=== PATIENT | female | born 1955 | race Caucasian/White ===

== ENCOUNTER 2020-05-21 13:07 | Outpatient (REF) | payer OTHER, SELFPAY ==
[2020-05-21 15:55] LABS: Free T4 (Free Thyroxine) 1.54 ng/dL (0.71-1.85); Thyroid Stimulating Hormone 0.02 uIU/mL (0.32-4.0)
[2020-05-21 16:14] LABS: Folate 10.7 ng/mL (> or = 4.0); Vitamin B12 < 146 pg/mL (200-900)
== END 2020-05-21 13:08 | disposition home or self-care (01) ==
LOC: HO.LAB 13:07
PROVIDERS: PCP Internal Medicine; Visit Provider Internal Medicine
DX: E03.9 Hypothyroidism, unspecified (principal); E53.8 Deficiency of other specified B group vitamins; E78.00 Pure hypercholesterolemia, unspecified
CPT/HCPCS: 82607; 82746; 84439; 84443

== ENCOUNTER 2020-06-05 12:38 | Outpatient (REF) | payer OTHER, SELFPAY | END 2020-06-05 12:39 | disposition home or self-care (01) | LOC: HO.LAB 12:38 | PROVIDERS: PCP Internal Medicine; Visit Provider Internal Medicine | DX: Z20.828 Contact with and (suspected) exposure to other viral communicable diseases (principal) | CPT/HCPCS: 36415; C9803; U0003 ==

== ENCOUNTER 2020-09-04 08:51 | Outpatient (REF) | payer OTHER, SELFPAY | END 2020-09-04 08:52 | disposition home or self-care (01) | LOC: HO.LAB 08:51 | PROVIDERS: Visit Provider Internal Medicine | DX: Z20.822 Contact with and (suspected) exposure to COVID-19 (principal) | CPT/HCPCS: C9803; U0003; U0005 ==

== ENCOUNTER 2020-09-06 09:02 | Emergency (ER) | payer OTHER, SELFPAY ==
--- NOTE | ~2020-09-06 | XR_ITS ---
EXAMINATION: XR CHEST CLINICAL INFORMATION: Productive cough. Fever. COMPARISON: Chest done on 12/31/2019. TECHNIQUE: Frontal view of the chest was obtained. FINDINGS: Mild prominent bronchovascular markings are present, appear similar to prior study. No significant abnormality is noted involving the heart, mediastinum, bony thorax or soft tissues. XR/XR chest 1V IMPRESSION: No radiographic evidence of pneumonia or acute cardiopulmonary disease, unchanged since 12/31/2019.
[2020-09-06 09:06] VITALS: BP 185/102; PULSE 80; RESP 20; TEMP 36.9; O2SAT 97; BMI 32.9
[2020-09-06] MEDS: 0.9 % Sodium Chloride 1,000 ML 999 ML IVCONT (09:45)
[2020-09-06 09:46] LABS: MANUAL DIFF FLAG NO
--- NOTE | 2020-09-06 09:48 | ED.GENADULT ---
HPI - General Adult General Chief complaint: General Medical Stated complaint: covid symptoms Time Seen by Provider: 09/06/20 09:08 Source: patient Mode of arrival: ambulatory Limitations: no limitations History of Present Illness HPI narrative: 64 y/o female wiht history of HTN, HLD, hypothyroidism, asthma, seasonal allergies who presents with 4 days of headache, fevers, productive junky cough and body aches. 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 She had a COVID test on 09/04 that returned positive today. She did not know the results when she came to the ER. She reports decreased PO intake and decreased urination. She is worried about her hydration status. She reports fevers and headache coinside and when her fever breaks her headaches resolve. She has chest tightness when she coughs that does not radiate. She denies difficulty breathing. MD complaint: COVID symptoms Onset (ago): day(s) (4) Location: head, chest and back Radiation: non-radiation Severity: moderate Severity scale (1-10): 8 Quality: aching Pain Consistency: intermittent Relieving factors: medication Exacerbating factors: movement Associated symptoms: cough, fever/chills, headaches, loss of appetite, malaise and weakness Treatments prior to arrival: none Related Data Home Medications Medication Instructions Recorded Confirmed albuterol sulfate 90 mcg/actuation 2 puff INHALATION Q4-6H PRN 03/10/20 03/10/20 aerosol inhaler latanoprost 0.005 % eye drops 1 drp OPHTHALMIC (EYE) DAILY 03/10/20 03/10/20 triamcinolone acetonide 0.5 % 1 applic TOPICAL BID 03/10/20 topical cream Previous Rx's Medication Instructions Recorded fluticasone propionate 110 2 puff INHALATION BID #12 g 03/10/20 mcg/actuation HFA aerosol inhaler loratadine 10 mg capsule 10 mg PO DAILY #90 cap 03/10/20 lorazepam 0.5 mg tablet 0.5 mg PO DAILY PRN #90 tab 03/10/20 temazepam 15 mg capsule 15 mg PO BEDTIME #30 cap 03/10/20 cyanocobalamin (vitamin B-12) 1,000 mcg PO DAILY #90 cap 05/21/20 1,000 mcg capsule levothyroxine 100 mcg tablet 100 mcg PO DAILY #30 tab 12/23/20 naproxen 500 mg tablet 500 mg PO BID PRN #60 tab 07/31/20 lisinopril 10 mg tablet 10 mg PO DAILY #90 tab 08/12/20 albuterol sulfate 1 inh INHALATION QID PRN #6.7 g 09/06/20 azithromycin [Zithromax Z-Vladimir] See Rx Instructions .ROUTE 09/06/20 .COMPLEX #6 tab benzonatate [Tessalon Perles] 100 mg PO TID PRN #20 cap 09/06/20 prednisone 40 mg PO DAILY #10 tab 09/06/20 Allergies Allergy/AdvReac Type Severity Reaction Status Date / Time latex [LATEX] Allergy Unknown ANAPHYLAXIS Verified 03/10/20 15:58 fruits Allergy Unknown itchy Uncoded 03/10/20 15:58 throat Review of Systems Review of Systems: Constitutional: + Fever, + Chills ENT/Mouth: No sore throat, No Rhinorrhea, No Swallowing Difficulty Eyes: No Eye Pain, No Swelling, No Redness Cardiovascular: + Chest Pain (w/cough), No SOB, No Orthopnea, No Edema Respiratory: + Cough, + Sputum, No Wheezing, No dyspnea Gastrointestinal: + Nausea, No Vomiting, No Diarrhea, No abdominal Pain Genitourinary: No Dysuria, No Urinary Frequency, No Hematuria Musculoskeletal: No joint pain, + Myalgias Skin: No Skin Lesions, No rash Neuro: + Weakness, No Numbness, +Dizziness, +Headache Psych: No Anxiety/Panic, No Depression Heme/Lymph: No Bruising, No Lymphadenopathy Endocrine: No Polyuria, No Polydipsia PMFSH Past Medical History Attestation statement: The following information was validated with the patient. Medical History Allergic rhinitis Anxiety Asthma Hypercholesterolemia Hypertension Hypothyroid Obesity (BMI 30.0-34.9) Surgical History (Updated 03/07/20 @ 13:24 by MENA Boswell) Cornea replaced by transplant History of section History of trigger finger Status post corneal transplant Family History Family History (Updated 03/07/20 @ 13:26 by MENA Boswell) Father Aneurysm CVA (cerebral vascular accident) Mother Hypertension Paternal Grandfather Brain aneurysm Social History Social History (Updated 03/10/20 @ 16:00 by Felipe Perry MD) Alcohol intake: never Smoking Status: Never smoker Advance Directives: No Advance Directives Information Provided: No Physical Exam Vital Signs: Vital Signs: Last Vital Signs Temp 98.2 F 09/06/20 11:31 Pulse 63 09/06/20 11:31 Resp 18 09/06/20 11:31 BP 193/91 H 09/06/20 11:31 Pulse Ox 98 09/06/20 11:31 Body Mass Index 32.9 Appearance: Alert. Oriented X3. No acute distress. Eyes: Pupils equal, round and reactive to light. ENT: Pharynx normal. Neck: Normal inspection. Neck supple. CVS: Normal heart rate and rhythm. Pulses normal. Respiratory: No respiratory distress. Breath sounds with right sided slight end expiratory wheeze, no rhonchi or rales Abdomen: Soft and nontender. +BS x4 Skin: Skin warm and dry. Normal skin color. Normal skin turgor. No rashes. Extremities: No lower extremity edema. Negative Jeannette's sign Neuro: Oriented X 3. Ambualtes with steady gait. Course Course Course Narrative: 64 y/o female with history of asthma and HTN presenting with COVID symptoms, found to be COVID positive on outpatient testing after known exposure to a coworker. She is vitally stable, aside from hypertension. She did not take her antihypertensives yet this morning. She has no vision changes or chest pain. She has a headache that she attributes to COVID. Doubt hypertensive urgency. She is in no respiratory distress with SpO2 98%. She was ambulated with pulse oximetry and SpO2 remained 96-98%. Will get CXR to assess for superimposed pneumonia - she reports productive cough of yellow phlegm. Will get basic lab workup as well given patient's reports and concerns for dehydration. Reevaluation(s) Reevaluation #1: CXR negative. Labs reassuring. BP remained elevated so lisinopril was given with good effect. She has plans to follow up with her PCP for BP management. She is stable for discharge with treatment for bronchitis. Patient agreeable with plan. Medical Decision Making Lab Data Result diagrams: 09/06/20 09:43 09/06/20 09:43 Labs: Lab Results 09/06/20 09/06/20 09/06/20 Range/Units 09:43 09:43 11:33 WBC 4.9 (4.8-10.8) X10*3/uL RBC 5.20 (4.20-5.50) X10*6/uL Hgb 15.8 (12.0-16.0) g/dl Hct 46.1 (37-47) % MCV 88.7 (80-98) fL MCH 30.4 (27.0-33.0) pg MCHC 34.3 (31.0-35.0) g/dl RDW 11.9 (11.0-16.0) % Plt Count 223 (160-400) X10*3/uL MPV 9.2 L (9.4-12.3) fL Immature Gran % (Auto) 0.2 (0.0-0.4) % Neut % (Auto) 46.2 (45-73) % Lymph % (Auto) 36.7 (20-40) % [place] % (Auto) 15.9 H (2-11) % Eos % (Auto) 0.6 (0-4) % Baso % (Auto) 0.4 (0-2) % Lymph # (Auto) 1.8 (1.2-4.9) X10*3/uL [place] # (Auto) 0.8 (0.1-1.2) X10*3/uL Eos # (Auto) 0.0 (0.0-0.4) X10*3/uL Baso # (Auto) 0.0 (0.0-0.2) X10*3/uL Abs Immat Gran (auto) 0.01 (0.00-0.03) X10*3/uL Absolute Neuts (auto) 2.3 (2.0-8.3) X10*3/uL Absolute Nucleated RBC 0.000 (0.0-0.012) X10*3/uL Nucleated RBC % (auto) 0.0 (0.0-0.2) /100WBC Sodium 135 (135-145) mmol/L Potassium 4.7 (3.3-5.1) mmol/L Chloride 104 (96-108) mmol/L Carbon Dioxide 20 L (22-29) mmol/L Anion Gap 16 (12-20) BUN 14 (9-16) mg/dL Creatinine 0.73 (0.5-1.4) mg/dL Estim Creat Clear Calc 79.1 Estimated GFR > 60 Random Glucose 109 (60-115) mg/dL Calcium 8.4 (8.4-10.2) mg/dL Urine Color YELLOW Urine Appearance CLEAR Urine pH 6.0 (5.0-8.0) Ur Specific [place] 1.025 (1.005-1.025) Urine Protein NEG (NEG-TRACE) MG/DL Urine Glucose (UA) NEG (NEG) MG/DL Urine Ketones NEG (NEG) MG/DL Urine Blood NEG (NEG) Urine Nitrite NEG (NEG) Ur Leukocyte Esterase NEG (NEG) Critical Care Time Critical Care Time Critical Care Time: No Discharge Plan Discharge Clinical Impression: COVID-19, Bronchitis Patient Disposition: Home, Self-Care Instructions: Acute Bronchitis (ED), COVID-19 (Coronavirus Disease 2019) (ED) Additional Instructions: You were found to be COVID-19 POSITIVE today. Your chest x-ray and oxygen levels were normal. Your lab work was normal. Rest. Drink plenty of fluids. Do not go out in public for the next 10 days. Take over the counter cold/flu medications as needed for your symptoms. Take Tylenol and/or Motrin as needed for fevers and body aches. Follow up with your doctor this week. If you shortness of breath worsens , if you develop difficulty breathing or any other concerning symptom come back to the ER for further evaluation. Your blood pressure was elevated in the ER today - recommend following up with your doctor next week for follow up. Stick to a low salt diet. Prescriptions: New azithromycin [Zithromax Z-Vladimir] 250 mg tablet See Rx Instructions .ROUTE .COMPLEX Qty: 6 RF: 0 prednisone 20 mg tablet 40 mg PO DAILY Qty: 10 RF: 0 albuterol sulfate 90 mcg/actuation HFA aerosol inhaler 1 inh inhalation QID PRN (Reason: shortness of breath or wheezing) Qty: 6.7 RF: 0 benzonatate [Tessalon Perles] 100 mg capsule 100 mg PO TID PRN (Reason: cough) Qty: 20 RF: 0 No Action levothyroxine 100 mcg tablet 100 mcg PO DAILY Qty: 30 RF: 3 cyanocobalamin (vitamin B-12) 1,000 mcg capsule 1,000 mcg PO DAILY Qty: 90 RF: 2 naproxen 500 mg tablet 500 mg PO BID PRN (Reason: pain) Qty: 60 RF: 0 lisinopril 10 mg tablet 10 mg PO DAILY Qty: 90 RF: 1 albuterol sulfate [ProAir HFA] 90 mcg/actuation HFA aerosol inhaler 2 puff inhalation Q4-6H PRNRF: 0 triamcinolone acetonide 0.5 % cream 1 applic topical BID RF: 0 latanoprost 0.005 % drops 1 drp ophthalmic (eye) DAILY RF: 0 fluticasone propionate 110 mcg/actuation HFA aerosol inhaler 2 puff inhalation BID Qty: 12 RF: 7 lorazepam 0.5 mg tablet 0.5 mg PO DAILY PRN (Reason: anxiety) Qty: 90 RF: 0 temazepam 15 mg capsule 15 mg PO BEDTIME Qty: 30 RF: 0 loratadine 10 mg capsule 10 mg PO DAILY Qty: 90 RF: 0 Referrals: Po,Felipe Negrete MD [Primary Care Provider] - 2 days (high blood pressure ) Stand Alone Forms: Work/School Release
[2020-09-06 09:50] LABS: Basophils Percent Auto 0.4 % (0-2); Eosinophils Percent Auto 0.6 % (0-4); Hematocrit 46.1 % (37-47); Hemoglobin 15.8 g/dl (12.0-16.0); Imm Gran Abs Auto 0.01 X10*3/uL (0.00-0.03); Imm Gran Pct Auto 0.2 % (0.0-0.4); Lymphocytes Absolute Auto 1.8 X10*3/uL (1.2-4.9); Lymphocytes Percent Auto 36.7 % (20-40); Mean Corpuscular HGB Conc 34.3 g/dl (31.0-35.0); Mean Corpuscular Hemoglobin 30.4 pg (27.0-33.0); Mean Corpuscular Volume 88.7 fL (80-98); Mean Platelet Volume 9.2 fL (9.4-12.3); Monocytes Absolute Auto 0.8 X10*3/uL (0.1-1.2); Monocytes Percent Auto 15.9 % (2-11); Neutrophils Absolute Auto 2.3 X10*3/uL (2.0-8.3); Neutrophils Percent Auto 46.2 % (45-73); Platelet Count 223 X10*3/uL (160-400); Red Cell Distribution Width 11.9 % (11.0-16.0); White Blood Count 4.9 X10*3/uL (4.8-10.8)
[2020-09-06 10:10] LABS: Anion Gap 16 (12-20); Blood Urea Nitrogen 14 mg/dL (9-16); Calcium 8.4 mg/dL (8.4-10.2); Carbon Dioxide 20 mmol/L (22-29); Chloride 104 mmol/L (96-108); Creatinine Clr Calc Pharmacy 79.1; Estimated Glomerular Filt Rate > 60; Glucose Random 109 mg/dL (60-115); Potassium 4.7 mmol/L (3.3-5.1); Sodium 135 mmol/L (135-145)
[2020-09-06 10:29] VITALS: PULSE 69; RESP 18; O2SAT 98
[2020-09-06 10:35] VITALS: BP 191/83
[2020-09-06] MEDS: lisinopriL 10 MG TABLET PO (10:40)
[2020-09-06 11:31] VITALS: BP 193/91; PULSE 63; RESP 18; TEMP 36.8; O2SAT 98
--- NOTE | 2020-09-06 11:32 | PC.NURSE ---
patient a&ox3, vss, patients fluids now complete, will continue to monitor
[2020-09-06 11:44] LABS: Glucose Urine UA NEG (NEG); Leukocyte Esterase Urine NEG (NEG); Nitrite Urine NEG (NEG); Specific Gravity - Urine 1.025 (1.005-1.025); Urine Blood NEG (NEG); Urine Ketones NEG (NEG); Urine Protein NEG (NEG-TRACE)
[2020-09-06 11:45] LABS: Appearance Urine CLEAR; Color Urine YELLOW
[2020-09-06 12:34] VITALS: BP 177/88
== END 2020-09-06 12:36 | disposition home or self-care (01) ==
PROVIDERS: Physician Assistant; Emergency Provider Emergency Medicine Emergency Medical Services; PCP Internal Medicine
DX: U07.1 COVID-19 (principal); J20.8 Acute bronchitis due to other specified organisms; I10 Essential (primary) hypertension; E78.5 Hyperlipidemia, unspecified; J45.909 Unspecified asthma, uncomplicated; Z79.899 Other long term (current) drug therapy
CPT/HCPCS: 36415; 71045; 80048; 81003; 85025; 96360; 99284

== ENCOUNTER 2020-10-28 15:49 | Outpatient (REF) | payer OTHER, SELFPAY ==
--- NOTE | ~2020-10-28 | MM_ITS ---
EXAMINATION: MM SCREENING DIGITAL BREAST TOMOSYNTHESIS, BILATERAL CLINICAL INFORMATION: Screening. Asymptomatic. The lifetime risk of breast cancer based on the Tyrer-Cuzick Model is 6%. COMPARISON: Mammography: 07/19/2019, 06/02/2018, 03/09/2016 TECHNIQUE: Digital breast tomosynthesis is performed in both the craniocaudal and mediolateral oblique views along with computer-aided detection (CAD). Synthesized 2D images are generated from the tomosynthesis. FINDINGS: There are scattered areas of fibroglandular density (ACR BI-RADS breast composition Category b). There are no significant masses, abnormal calcifications, or other abnormalities. Parenchymal pattern is similar to prior exams. No developing density. No significant changes. MM/MM tomosynthesis screening BI IMPRESSION: No mammographic evidence of malignancy. ASSESSMENT: BI-RADS 1: Negative RECOMMENDATION: Routine annual mammography screening. This patient's information was entered into a reminder system with a target due date for their next mammogram.
== END 2020-10-28 15:50 | disposition home or self-care (01) ==
LOC: HO.MAMMO 15:49
PROVIDERS: Visit Provider Internal Medicine
DX: Z12.31 Encounter for screening mammogram for malignant neoplasm of breast (principal)
CPT/HCPCS: 77063; 77067

== ENCOUNTER 2021-03-11 15:00 | Outpatient (REF) | payer OTHER, SELFPAY | END 2021-03-11 15:01 | disposition home or self-care (01) | LOC: HO.LAB 15:00 | PROVIDERS: Visit Provider Internal Medicine | DX: Z20.822 Contact with and (suspected) exposure to COVID-19 (principal) | CPT/HCPCS: C9803; U0003; U0005 ==

== ENCOUNTER 2021-04-03 13:52 | Emergency (ER) | payer OTHER, SELFPAY ==
--- NOTE | ~2021-04-03 | XR_ITS ---
EXAMINATION: XR CHEST CLINICAL INFORMATION: Chills, wheeze, cough COMPARISON: 09/06/2020 TECHNIQUE: Frontal view of the chest was obtained. FINDINGS: The lungs are well expanded. There is no focal consolidation, edema, or effusion. No pneumothorax. The cardiomediastinal silhouette is within normal limits of size with a calcified aorta. No acute osseous abnormality. XR/XR chest 1V IMPRESSION: No acute pulmonary finding.
[2021-04-03 14:06] VITALS: BP 171/79; PULSE 78; RESP 18; TEMP 36.7; O2SAT 94; BMI 29.2
[2021-04-03] MEDS: predniSONE 20 MG TABLET 60 MG PO (14:31)
[2021-04-03 14:37] LABS: COVID-19 Test Negative (Negative); IDNOW Serial# 9DD0AD1C
[2021-04-03] MEDS: Albuterol Sulfate (0.083%) 2.5 MG/3 ML VIAL.NEB 10 MG INHALE (15:01)
[2021-04-03 15:05] VITALS: PULSE 76; O2SAT 95
--- NOTE | 2021-04-03 15:34 | ED.URI ---
HPI - URI/Sore Throat General Chief Complaint: Upper Respiratory Symptoms Stated Complaint: cough, diff breathing, chest tightness Time Seen by Provider: 04/03/21 14:17 Source: patient Mode of arrival: ambulatory Limitations: no limitations History of Present Illness HPI Narrative: 65-year-old female with a past medical history of hypertension, hyperlipidemia, hypothyroidism, asthma and seasonal allergies presenting to the ED with complaints of few days of chills, subjective fevers, intermittent headaches, nasal congestion/rhinorrhea, sore throat, dry cough with associated increased shortness of breath/wheezing despite using her albuterol inhaler and her 's prescribed nebulizers. She denies recent travel. She is fully vaccinated with 2 COVID vaccines. She is unsure if she had any possible COVID exposure at work. She denies any dizziness, neck pain/stiffness, change in vision, chest pain, dyspnea exertion, orthopnea, palpitations, nausea/vomiting/diarrhea or constipation, abdominal pain, dysuria, rashes, lower extremity edema or calf tenderness or any other symptoms complaints or concerns at this time. MD elicited complaint: fever, cough, sore throat, rhinorrhea and nasal congestion Pertinent past history: asthma Onset (ago): day(s) (Few days worse today) Consistency: constant and progressively worsening Severity: moderate Able to tolerate fluids by mouth: Yes Exacerbating factors: speaking and deep breaths Relieving factors: nothing Context: sick contacts Associated symptoms: fever, chills, myalgias, headache, rhinorrhea, nasal congestion, sore throat, cough and shortness of breath Treatments prior to arrival: other (See above) Related Data Home Medications Medication Instructions Recorded Confirmed latanoprost 0.005 % eye drops 1 drp OPHTHALMIC (EYE) DAILY 03/10/20 02/09/21 Previous Rx's Medication Instructions Recorded fluticasone propionate 110 2 puff INHALATION BID #12 g 03/10/20 mcg/actuation HFA aerosol inhaler cyanocobalamin (vitamin B-12) 1,000 mcg PO DAILY #90 cap 05/21/20 1,000 mcg capsule lisinopril 10 mg tablet 20 mg PO DAILY #60 tab 09/10/20 loratadine 10 mg capsule 10 mg PO DAILY #90 cap 01/12/21 albuterol sulfate 90 mcg/actuation 2 puff INHALATION Q4-6H PRN #8.5 g 02/09/21 aerosol inhaler (ProAir HFA) epinephrine 0.3 mg/0.3 mL 0.3 mg (0.3 mL) IM Q10M PRN #2 ea 02/09/21 injection, auto-injector inhalational spacing device #1 ea 02/09/21 (BreatheRite Valved MDI Spacer) lorazepam 0.5 mg tablet 0.5 mg PO DAILY PRN 90 Days #90 tab 02/09/21 prednisone 20 mg tablet 40 mg PO DAILY 5 Days #10 tab 02/09/21 azithromycin 250 mg tablet See Rx Instructions PO .COMPLEX 5 03/13/21 (Zithromax Z-Vladimir) Days #6 tab prednisone 10 mg tablet See Rx Instructions PO DAILY 10 03/13/21 Days #28 tab levothyroxine 100 mcg tablet 100 mcg PO DAILY 90 Days #90 tab 03/31/21 albuterol sulfate 0.63 mg/3 mL 0.63 mg (3 mL) INHALATION QID PRN 04/03/21 solution for nebulization #75 ml albuterol sulfate 90 mcg/actuation 1 inh INHALATION QID PRN #8.5 g 04/03/21 aerosol inhaler codeine 10 mg-guaifenesin 100 mg/5 5 ml PO Q6H PRN #120 ml 04/03/21 mL oral liquid (Guaifenesin AC) doxycycline hyclate 100 mg tablet 100 mg PO BID 10 Days #20 tab 04/03/21 nebulizers (AeroEclipse II #1 ea 04/03/21 Nebulizer) prednisone 20 mg tablet 40 mg PO DAILY 5 Days #10 tab 04/03/21 Allergies Allergy/AdvReac Type Severity Reaction Status Date / Time latex [LATEX] Allergy Unknown ANAPHYLAXIS Verified 03/13/21 13:50 fruits Allergy Unknown itchy Uncoded 02/09/21 09:44 throat Review of Systems Review of Systems: Constitutional : Positive fever/chills/fatigue/malaise, No Weight loss, No Night Sweats ENT/Mouth : Positive nasal congestion/rhinorrhea/sore throat, No Hearing loss, No Ear Pain, No Sinus Pain, No Hoarseness, No Swallowing Difficulty Eyes: No Eye Pain, No Swelling, No Redness, No Foreign Body, No Discharge, No Vision Changes Cardiovascular : Positive shortness of breath, No Chest Pain, No Dyspnea on Exertion, No Orthopnea, No Edema, No Palpitations Respiratory : Positive cough with wheezing and dyspnea, No Sputum production Gastrointestinal : No Nausea, No Vomiting, No Diarrhea, No Constipation, No abdominal Pain, No Hematochezia, No Melena Genitourinary : no irregular bleeding, No Dysuria, No Urinary Frequency, No Hematuria, No Urinary Incontinence, No Urgency, No Flank Pain, No Urinary Flow Changes, No Hesitancy Musculoskeletal : Positive myalgias, No joint pain, No Joint Swelling Skin : No Skin Lesions, No rash Neuro : No Weakness, No Numbness, No Paresthesias, No Loss of Consciousness, No Dizziness, No Headache Psych : No Anxiety/Panic, No Depression, No SI/HI/AH/VH, No Social Issues, Heme/Lymph: No Bruising, No Bleeding,No Lymphadenopathy Endocrine : No Polyuria, No Polydipsia, No Temperature Intolerance Yes all other systems are reviewed and are negative [facility] Past Medical History Attestation statement: The following information was validated with the patient. Medical History Allergic rhinitis Anxiety Asthma COVID-19 Hypercholesterolemia Hypertension Hypothyroid Obesity (BMI 30.0-34.9) Surgical History Cornea replaced by transplant History of section History of trigger finger Status post corneal transplant Family History Family History Father Aneurysm CVA (cerebral vascular accident) Mother Hypertension Paternal Grandfather Brain aneurysm Social History Social History Housing: House Alcohol intake: never Patient Tobacco Use Status: Never used Tobacco e-Cigarette/Vaping Use: Never Used Second Hand Smoke Exposure: No Advance Directives: No Advance Directives Information Provided: No Patient : No service: Yes Current occupational status: employed Physical Exam Vital Signs: Vital Signs: Last Vital Signs Temp 98.1 F 04/03/21 14:06 Pulse 76 04/03/21 15:05 Resp 18 04/03/21 14:06 BP 171/79 H 04/03/21 14:06 Pulse Ox 94 04/03/21 14:06 Body Mass Index 29.2 vital signs have been reviewed as normal and appeared to be correct. Blood pressure hypertensive 171/79. Heart rate normal. Respiration rate normal. Temperature normal. Oxygen saturation 94% normal. Appearance: Alert. Oriented X3. Mild respiratory distress. No other acute distress. Head: Normal external exam. Normocephalic. Atraumatic. Eyes: PERRLA. EOMI. Conjunctiva and sclera normal. Eyelids normal. ENT: Pharynx normal. Uvula midline. Moist mucous membranes. No trismus noted. No drooling noted. No muffled voice noted. Tolerating secretions well. Neck: Normal inspection. Neck supple. FROM. No adenopathy. Thyroid Normal. No meningeal signs. No neck mass noted. CVS: Normal heart rate and rhythm. Heart sound normal. Pulses normal throughout. No murmurs/rales/gallops. Respiratory: Mild acute respiratory distress with decreased breath sounds and pain with inspiration with inspiratory and expiratory wheezing throughout. Some accessory muscle usage noted. No tracheal tugging is noted. Chest is nontender. Abdomen: Soft and nontender. Bowel sounds normal in all 4 quadrants. No distention noted. No organomegaly noted. No visible injury noted. Back: Full range of motion noted. No rashes/lesion/induration/fluctuance or signs of infection noted. Skin: Skin warm and dry. Normal skin color. Normal skin turgor. No rashes/lesions/lacerations noted. Extremities: No lower extremity edema. No calf tenderness is noted. Extremities exhibit normal range of motion. Extremities nontender. Neuro: Oriented X 3. No motor deficit. No sensory deficit. Reflexes normal. Normal steady gait. No focal neuro deficits noted. Vascular: + radial pulses/+ 2 distal pedal pulses/+2 dorsalis pedis b/l. Normal cap refill. No cyanosis noted to upper extremity nails and lower extremity toes nails. Course Course Course Narrative: 65-year-old female with a past medical history of hypertension, hyperlipidemia, hypothyroidism, asthma and seasonal allergies presenting to the ED with complaints of few days of chills, subjective fevers, intermittent headaches, nasal congestion/rhinorrhea, sore throat, dry cough with associated increased shortness of breath/wheezing despite using her albuterol inhaler and her 's prescribed nebulizers. She denies recent travel. She is fully vaccinated with 2 COVID vaccines. She is unsure if she had any possible COVID exposure at work. She denies any dizziness, neck pain/stiffness, change in vision, chest pain, dyspnea exertion, orthopnea, palpitations, nausea/vomiting/diarrhea or constipation, abdominal pain, dysuria, rashes, lower extremity edema or calf tenderness or any other symptoms complaints or concerns at this time. COVID swab negative. Chest x-ray negative. Patient received an hour long breathing treatment 60 mg of prednisone and she feels much better and exam has improved. Therefore at this time will DC home with antibiotics for bronchitis along with steroids and symptomatic treatment instructions return if any new or worsening symptoms to follow up with primary care provider. Patient understands agrees with this plan. MDM - URI/Sore Throat Medical Records Attestation: I reviewed the patient's medical records. Lab Data Labs: Lab Results 04/03/21 Range/Units 14:15 COVID-19 ([facility]INNA) Negative (Negative) COVID-19 Clin Com See Note Imaging Data Chest x-ray: Attestation: I personally reviewed and interpreted this imaging study as follows: Radiologist's impression: FINDINGS: The lungs are well expanded. There is no focal consolidation, edema, or effusion. No pneumothorax. The cardiomediastinal silhouette is within normal limits of size with a calcified aorta. No acute osseous abnormality. XR/XR chest 1V IMPRESSION: No acute pulmonary finding. Critical Care Time Critical Care Time Critical Care Time: Yes Total Critical Care Time: 60 Attestation: I personally attest to this time spent taking care of the patient Discharge Plan Discharge Clinical Impression: Asthma exacerbation, Acute bronchitis with bronchospasm, Wheezing Patient Disposition: Home, Self-Care Instructions: Asthma (ED), Acute Bronchitis (ED), Wheezing (ED) Prescriptions: New (DME) AeroEclipse II Nebulizer Misc See Rx Instructions .ROUTE .MEDSUPPLY Qty: 1 RF: 0 albuterol sulfate 0.63 mg/3 mL solution for nebulization 0.63 mg inhalation QID PRN (Reason: shortness of breath or wheezing) Qty: 75 RF: 0 albuterol sulfate 90 mcg/actuation HFA aerosol inhaler 1 inh inhalation QID PRN (Reason: shortness of breath or wheezing) Qty: 8.5 RF: 0 codeine-guaifenesin [Guaifenesin AC] 10-100 mg/5 mL liquid 5 ml PO Q6H PRN (Reason: cold symptoms) Qty: 120 RF: 0 doxycycline hyclate 100 mg tablet 100 mg PO BID 10 Days Qty: 20 RF: 0 prednisone 20 mg tablet 40 mg PO DAILY 5 Days Qty: 10 RF: 0 No Action cyanocobalamin (vitamin B-12) 1,000 mcg capsule 1,000 mcg PO DAILY Qty: 90 RF: 2 lisinopril 10 mg tablet 20 mg PO DAILY Qty: 60 RF: 1 loratadine 10 mg capsule 10 mg PO DAILY Qty: 90 RF: 3 lorazepam 0.5 mg tablet 0.5 mg PO DAILY PRN (Reason: anxiety) 90 Days Qty: 90 RF: 1 levothyroxine 100 mcg tablet 100 mcg PO DAILY 90 Days Qty: 90 RF: 2 latanoprost 0.005 % drops 1 drp ophthalmic (eye) DAILY RF: 0 fluticasone propionate 110 mcg/actuation HFA aerosol inhaler 2 puff inhalation BID Qty: 12 RF: 7 prednisone 20 mg tablet 40 mg PO DAILY 5 Days Qty: 10 RF: 0 epinephrine 0.3 mg/0.3 mL auto-injector 0.3 mg IM Q10M PRN (Reason: anaphylaxis) Qty: 2 RF: 1 (DME) BreatheRite Valved MDI Spacer Spacer See Rx Instructions .Route Qty: 1 RF: 0 albuterol sulfate [ProAir HFA] 90 mcg/actuation HFA aerosol inhaler 2 puff inhalation Q4-6H PRN (Reason: shortness of breath or wheezing) Qty: 8.5 RF: 0 prednisone 10 mg tablet See Rx Instructions PO DAILY 10 Days Qty: 28 RF: 0 azithromycin [Zithromax Z-Vladimir] 250 mg tablet See Rx Instructions PO .COMPLEX 5 Days Qty: 6 RF: 0 Referrals: Po,Felipe Negrete MD [Primary Care Provider] - 2 days Stand Alone Forms: Work/School Release Print Language: Iraqi
[2021-04-03 15:56] VITALS: PULSE 89; RESP 18; O2SAT 95
== END 2021-04-03 16:13 | disposition home or self-care (01) ==
PROVIDERS: Emergency Provider Emergency Medicine; PCP Internal Medicine
DX: J20.9 Acute bronchitis, unspecified (principal); J45.901 Unspecified asthma with (acute) exacerbation; R06.02 Shortness of breath; J02.9 Acute pharyngitis, unspecified; I10 Essential (primary) hypertension; E78.5 Hyperlipidemia, unspecified; Z20.822 Contact with and (suspected) exposure to COVID-19
CPT/HCPCS: 36415; 71045; 87635; 94640; 94644; 99284; 99291

== ENCOUNTER 2021-05-05 15:01 | Emergency (ER) | payer OTHER, SELFPAY ==
--- NOTE | ~2021-05-05 | CT_ITS ---
CT head/brain wo con CLINICAL INFORMATION: Reason for Exam fall. brain bleed? COMPARISON: No prior CT scan available for comparison. TECHNIQUE: Department standard protocol. This CT examination was performed using dose optimization techniques as appropriate, variously including the following: *Automated exposure control *Adjustment of mA and/or kV according to patient size (this includes techniques or standardized protocols for targeted exams where dose is matched to indication/reason for exam; i.e. extremities or head) *Use of iterative reconstruction technique DLP: 1097 mGy-cm FINDINGS: CEREBRAL HEMISPHERES: There is no evidence of intra-axial or extra-axial mass, hemorrhage or acute infarct. BRAIN PARENCHYMA: Normal rodrigez-white matter differentiation. SUBDURAL SPACE: No bleed. BASAL GANGLIA AND PINEAL GLAND: Unremarkable VENTRICLES: Symmetric and normal in size. CEREBELLUM AND BRAINSTEM: No space-occupying mass, hemorrhage or acute infarct. CEREBELLOPONTINE ANGLES: No lesion found. ORBITS: No intraorbital mass. VESSELS: Unremarkable SKULL BASE: Unremarkable INCLUDED SINUSES AT SKULL BASE: Clear SKULL AND SKIN: No fracture or bone lesion found. CT/CT head/brain wo con IMPRESSION: No CT evidence of acute intracranial bleed.
--- NOTE | ~2021-05-05 | CT_ITS ---
EXAMINATION: CT CERVICAL SPINE WITHOUT CONTRAST CLINICAL INFORMATION: Fall COMPARISON: None TECHNIQUE: Noncontrast CT cervical spine Department standard protocol. This CT examination was performed using dose optimization techniques as appropriate, variously including the following: *Automated exposure control *Adjustment of mA and/or kV according to patient size (this includes techniques or standardized protocols for targeted exams where dose is matched to indication/reason for exam; i.e. extremities or head) *Use of iterative reconstruction technique DLP: 1097 mGy-cm FINDINGS: Mild mucosal thickening of the left sphenoidal air cell. 7 cervical vertebrae identified maintaining proper height and alignments. Narrowing of disc spaces at C5-C6, C6-C7, C7-T1 suggests underlying degenerative disc disease. Spinal levels: C2-C3: No fracture. C3-C4: No fracture. C4-C5: No fracture. C5-C6: No fracture. C6-C7: No fracture. C7-T1: Normal. CT/CT cervical spine wo con IMPRESSION: 1. No CT evidence of cervical spine fracture. 2. Narrowing of disc spaces suggest underlying degenerative disc disease. Fleischner guidelines were followed.
--- NOTE | ~2021-05-05 | XR_ITS ---
EXAMINATION: LEFT SHOULDER AND CLAVICLE X-RAY CLINICAL INFORMATION: Injury COMPARISON: None TECHNIQUE: 3 views of the left shoulder and 2 views of the left clavicle FINDINGS: Left shoulder: Bone alignment is normal. No fracture or dislocation is seen. The glenohumeral joint is normal. There is mild arthritis at the acromioclavicular joint. Soft tissues are unremarkable. Left clavicle: Bone alignment is normal. No fracture or dislocation is seen. XR/XR shoulder LT min 2V IMPRESSION: No fracture or dislocation seen. Mild arthritis at the acromioclavicular joint.
--- NOTE | ~2021-05-05 | CT_ITS ---
EXAMINATION: CT CHEST WITHOUT CONTRAST CLINICAL INFORMATION: Left-sided chest pain with question of rib fracture. COMPARISON: None TECHNIQUE: Multidetector volumetric CT imaging of the chest was done. Axial MIP volume rendering provided. Sagittal and coronal reformatted images were obtained. This CT examination was performed using dose optimization techniques as appropriate, variously including the following: *Automated exposure control *Adjustment of mA and/or kV according to patient size (this includes techniques or standardized protocols for targeted exams where dose is matched to indication/reason for exam; i.e. 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 The largest solid nodules in the left lower lobe measuring 4 mm (9:299). There is a 5 mm groundglass nodule in the right lower lobe (9:175). The lungs are otherwise clear with no evidence of inflammation or suspicious worrisome nodules. MEDIASTINUM: The mediastinum is unremarkable. Coronary calcifications are seen. No mediastinal or hilar lymphadenopathy detected. PLEURA: There is no pleural effusion. No pleural mass or thickening. AXILLA: No lymphadenopathy. UPPER ABDOMEN: Unremarkable. OSSEOUS STRUCTURES: Degenerative changes present throughout the spine. No displaced rib fractures are seen. No spinal or sternal fracture is seen. The visualized scapula and humeri appear normal. CT/CT chest wo con IMPRESSION: No evidence of a traumatic injury. No rib fractures are seen. Incidental note made of pulmonary nodules the largest solid nodule measuring 4 mm and the largest groundglass nodule measuring 5 mm. 2017 Fleischner Society Recommendations for Lung Nodule(s): Follow-Up based on size (average of long- and short-axis diameters). Use most suspicious nodule for followup. Single Solid low risk nodule < 6 mm: No routine follow-up imaging is recommended in low risk and high risk patients. Also, regarding single GG lung nodule < 6 mm: No routine follow-up imaging is also recommended. These guidelines do not apply to patients younger than 35 years, immunocompromised patients, and patients with cancer. F/u in patients with significant comorbidities as clinically warranted. For lung cancer screening, adhere to Lung-RADS guidelines. Reference: Radiology. 2017 Nov; 284(1):228-243 Fleischner guidelines were followed.
--- NOTE | ~2021-05-05 | XR_ITS ---
EXAMINATION: LEFT SHOULDER AND CLAVICLE X-RAY CLINICAL INFORMATION: Injury COMPARISON: None TECHNIQUE: 3 views of the left shoulder and 2 views of the left clavicle FINDINGS: Left shoulder: Bone alignment is normal. No fracture or dislocation is seen. The glenohumeral joint is normal. There is mild arthritis at the acromioclavicular joint. Soft tissues are unremarkable. Left clavicle: Bone alignment is normal. No fracture or dislocation is seen. XR/XR clavicle LT IMPRESSION: No fracture or dislocation seen. Mild arthritis at the acromioclavicular joint.
--- NOTE | ~2021-05-05 | CT_ITS ---
EXAMINATION: NONCONTRAST CT SCAN OF THE SHOULDER. CLINICAL INFORMATION: Fall COMPARISON: None TECHNIQUE: Computed axial with reformatted sagittal and coronal images acquired through the left shoulder. FINDINGS: Bones: Left clavicle, left scapula, left humeral head neck and included diaphysis, included adjacent left ribs are intact. There is no fracture or dislocation. Joints glenohumeral joint is intact. Mild DJD of AC joint. Surrounding musculature and soft tissue: No gross abnormalities, no soft tissue mass. No bleed. Included adjacent left lung is clear CT/CT shoulder LT wo con IMPRESSION: No CT evidence of acute fracture or dislocation. Mild DJD of AC joint.
[2021-05-05 15:06] VITALS: BP 148/79; PULSE 93; RESP 18; TEMP 36.4; O2SAT 98; BMI 32.7
--- NOTE | 2021-05-05 16:28 | ED_ITS ---
HPI - Extremity Problem General Chief complaint: Extremity Injury, Upper Stated complaint: left shoulder and neck pain fell on ice today Time Seen by Provider: 05/05/21 16:12 Source: patient Mode of arrival: ambulatory Limitations: no limitations History of Present Illness HPI Narrative: Patient presents to the ED for left shoulder pain due to fall earlier on ice today. Patient presents to ED for left shoulder pain and neck pain after slipping on ice earlier today in [place]. Patient states she fell directly on left shoulder and since then has not been able to lift shoulder due to pain. Patient states pain on range of motion. Patient states she did not hit head or have loss of consciousness. Patient denies being on any blood thinners. Patient denies feeling dizzy or having any chest pain, shortness of breath, weakness, slurred speech, facial droop, paralysis of extremities, loss of visions, or abdominal pain before falling. Patient states she fell because she slipped on black ice that she did not see.. Related Data Home Medications Medication Instructions Recorded Confirmed latanoprost 0.005 % eye drops 1 drp OPHTHALMIC (EYE) DAILY 03/10/20 02/09/21 Previous Rx's Medication Instructions Recorded fluticasone propionate 110 2 puff INHALATION BID #12 g 03/10/20 mcg/actuation HFA aerosol inhaler cyanocobalamin (vitamin B-12) 1,000 mcg PO DAILY #90 cap 05/21/20 1,000 mcg capsule lisinopril 10 mg tablet 20 mg PO DAILY #60 tab 09/10/20 loratadine 10 mg capsule 10 mg PO DAILY #90 cap 01/12/21 albuterol sulfate 90 mcg/actuation 2 puff INHALATION Q4-6H PRN #8.5 g 02/09/21 aerosol inhaler (ProAir HFA) epinephrine 0.3 mg/0.3 mL 0.3 mg (0.3 mL) IM Q10M PRN #2 ea 02/09/21 injection, auto-injector inhalational spacing device #1 ea 02/09/21 (BreatheRite Valved MDI Spacer) lorazepam 0.5 mg tablet 0.5 mg PO DAILY PRN 90 Days #90 tab 02/09/21 prednisone 20 mg tablet 40 mg PO DAILY 5 Days #10 tab 02/09/21 azithromycin 250 mg tablet See Rx Instructions PO .COMPLEX 5 03/13/21 (Zithromax Z-Vladimir) Days #6 tab prednisone 10 mg tablet See Rx Instructions PO DAILY 10 03/13/21 Days #28 tab levothyroxine 100 mcg tablet 100 mcg PO DAILY 90 Days #90 tab 03/31/21 albuterol sulfate 0.63 mg/3 mL 0.63 mg (3 mL) INHALATION QID PRN 04/03/21 solution for nebulization #75 ml albuterol sulfate 90 mcg/actuation 1 inh INHALATION QID PRN #8.5 g 04/03/21 aerosol inhaler codeine 10 mg-guaifenesin 100 mg/5 5 ml PO Q6H PRN #120 ml 04/03/21 mL oral liquid (Guaifenesin AC) doxycycline hyclate 100 mg tablet 100 mg PO BID 10 Days #20 tab 04/03/21 nebulizers (AeroEclipse II #1 ea 04/03/21 Nebulizer) prednisone 20 mg tablet 40 mg PO DAILY 5 Days #10 tab 04/03/21 cyclobenzaprine 10 mg tablet 10 mg PO TID PRN #18 tab 05/05/21 naproxen 500 mg tablet 500 mg PO BID PRN 10 Days #20 tab 05/05/21 prednisone 20 mg tablet 60 mg PO DAILY 5 Days #15 tab 05/05/21 Allergies Allergy/AdvReac Type Severity Reaction Status Date / Time latex [LATEX] Allergy Unknown ANAPHYLAXIS Verified 03/13/21 13:50 fruits Allergy Unknown itchy Uncoded 02/09/21 09:44 throat Review of Systems Review of Systems: Yes all other systems are reviewed and are negative Constitutional: Constitutional: Reports as per HPI and Reports no additional constitutional complaints Eyes: Eyes: Reports as per HPI and Reports no additional eye complaints ENT: Reports system reviewed and no additional complaints, except as do cumented, Reports as per HPI and Reports neck pain Cardiovascular: Cardiovascular: Reports as per HPI and Reports no additional cardiovascular complaints Respiratory: Respiratory: Reports as per HPI and Reports no additional respiratory complaints Gastrointestinal: Gastrointestinal: Reports as per HPI and Reports no additional gastrointestinal complaints Genitourinary: Genitourinary: Reports no additional female genitourinary complaints and Reports as per HPI Musculoskeletal: Musculoskeletal: Reports no additional musculoskeletal complaints, Reports as per HPI, Reports arthralgias (Left shoulder pain) and Reports neck pain Neurologic: Reports system reviewed and no additional complaints, except as documented and Reports as per HPI Psychiatric: Psychiatric: Reports no additional psychiatric complaints and Reports as per HPI [facility] Past Medical History Medical History Allergic rhinitis Anxiety Asthma COVID-19 Hypercholesterolemia Hypertension Hypothyroid Obesity (BMI 30.0-34.9) Surgical History Cornea replaced by transplant History of section History of trigger finger Status post corneal transplant Family History Family History Father Aneurysm CVA (cerebral vascular accident) Mother Hypertension Paternal Grandfather Brain aneurysm Social History Social History Housing: House Alcohol intake: never Patient Tobacco Use Status: Never used Tobacco e-Cigarette/Vaping Use: Never Used Second Hand Smoke Exposure: No Advance Directives: No Advance Directives Information Provided: No service: Yes Current occupational status: employed Physical Exam Vital Signs: Vital Signs: Last Vital Signs Temp 97.5 F 05/05/21 15:06 Pulse 90 05/05/21 19:21 Resp 18 05/05/21 19:21 BP 144/89 H 05/05/21 19:21 Pulse Ox 96 05/05/21 19:21 BMI result Body Mass Index 32.7 Const: General: cooperative, healthy appearing, comfortable, no acute distress, well developed, alert, awake and Physically active; No acute distress Orientation/consciousness: patient oriented x3 HENMT: Head: Yes normal to inspection, Yes No palpable skull fracture present, Yes normocephalic, Yes atraumatic and No abrasion Eyes: General: appearance normal, both eyes and all related structures Pupils: Equal, round and reactive pupils present Neck: Neck: Yes normal visual inspection, Yes full ROM, Yes no lymphadenopathy, Yes no meningeal signs, Yes trachea midline, Yes supple, No anterior neck swelling and Yes tender (posterior) Chest: Chest palpation & inspection: normal inspection of the chest and normal palpation of entire chest wall Chest/axillae images: 1. positive for left rib tenderness on palpation. negative for eccymosis/crepitus/erythema on palpation. Resp: Effort & Inspection: normal respiratory effort and able to speak in complete sentences Auscultation: clear to auscultation bilaterally Cardio: Jugular venous distension: no JVD Heart sounds: S1 normal heart sound present and S2 normal heart sound present GI: Inspection: Yes normal to inspection and No abdominal wall ecchymosis Palpation (GI): Soft to palpation, not firm, nontender, no guarding and not rigid : General: No CVA tenderness and Yes no CVA tenderness Back/Spine/Pelvis: Back: no CVA tenderness, No CVA tenderness and No back tenderness Skin: General skin exam: no rashes or lesions noted and elasticity normal Neuro: Other: Negative facial droop. Negative slurred speech. Negative for any neuro deficits. General: patient oriented x3, gait normal, tone normal, moves all extremities, Normal light touch and pain sensation, no meningeal signs, no focal motor deficits and CN's II-XI intact bilaterally Cranial nerves: Yes CN's II-XII intact bilaterally, Yes Facial sensation intact/muscles of mastication intact, Yes Intact sense of smell present, Yes Equal, round and reactive pupils present, Yes Normal accommodation reflex present, Yes Bilaterally intact EOM present, Yes Nystagmus not present, Yes Normal facial strength present, Yes Midline tongue present, Yes Ability to bilaterally rotate head present and Yes Ability to bilaterally elevate shoulders present Cognition (Neuro): normal cognition Gait exam (Neuro): Normal gait present Motor exam (neuro): 5/5 motor strength present throughout Extrem: Other: Left upper extremity including shoulder negative for any erythema or warmth. Shoulder/upper arm images: 1. Positive for tenderness on palpation. Negative for any ecchymosis or deformity. Motor exam significantly limited. Patient can barely perform abduction due to pain. Negative for pain in forearm/hand/wrist. Vascular and neuro exam of left upper extremity intact. Once again motor exam of shoulder limited due to significant pain. Psych: Appearance: grossly normal, well kempt and not disheveled Course Course Course Narrative: Patient x-rays were ordered triage. Reevaluation(s) Reevaluation #1: X-ray of shoulder and clavicle came back normal. Patient is still not able to lift shoulder significantly. Patient states history of right shoulder fracture with normal x-ray but was shown on CT scan. Patient will have left shoulders CT scan to rule out fracture. Patient also have chest CT due to left rib tenderness on palpation and patient states she fell onto her left side shoulder and chest. Although patient denies falling onto head but due to patient states she fell on the left side and have neck pain will do head and neck imaging. Patient's driving alone so does not want any pain medication. Time: 16:41 Reevaluation #2: Patient's CT scan of shoulder neck, chest, and head came back negative. Patient still has significant limited range of motion of left shoulder due to pain. Patient did not want pain medication during the ED. Patient will be discharged with pain medication muscle relaxer and steroids. Diagnosis shoulder contusion/sprain. Patient placed in sling. Patient states she will follow up with primary care provider. Not Suspecting cardiac etiology. Mechanical fall. Patient given copy of images to follow up with primary care dena phan including chest CT with mass on lung. Time: 20:15 MDM - Extremity (Nontraumatic) MDM Narrative Medical decision making narrative: Shoulder contusion/sprain Discharge Plan Discharge Clinical Impression: Contusion of left shoulder, Shoulder sprain Patient Disposition: Home, Self-Care Instructions: How to Use a Sling (ED), Contusion in Adults (ED), Shoulder Sprain (ED) Additional Instructions: All your images including CT scan of shoulder, head, neck, and chest came back normal. You was placed in sling for pain relief. Do not keep sling for 24 hours straight so you will not have frozen shoulder. You will be discharged with pain medication, muscle relaxer and steroids. Please follow-up with primary care provider. Return to the ED for swelling of left upper extremity, bluish/black discoloration of extremity, coldness, hotness, numbness, tingling, chest pain, shortness of breath, coughing up blood, dizziness, referred neck pain to the chest, abdominal pain, rectal bleeding, blood in urine, abdominal pain, dizziness, or any other concerning symptoms. Prescriptions: New naproxen 500 mg tablet 500 mg PO BID PRN (Reason: pain) 10 Days Qty: 20 RF: 0 prednisone 20 mg tablet 60 mg PO DAILY 5 Days Qty: 15 RF: 0 cyclobenzaprine 10 mg tablet 10 mg PO TID PRN (Reason: pain) Qty: 18 RF: 0 No Action cyanocobalamin (vitamin B-12) 1,000 mcg capsule 1,000 mcg PO DAILY Qty: 90 RF: 2 lisinopril 10 mg tablet 20 mg PO DAILY Qty: 60 RF: 1 loratadine 10 mg capsule 10 mg PO DAILY Qty: 90 RF: 3 lorazepam 0.5 mg tablet 0.5 mg PO DAILY PRN (Reason: anxiety) 90 Days Qty: 90 RF: 1 levothyroxine 100 mcg tablet 100 mcg PO DAILY 90 Days Qty: 90 RF: 2 (DME) AeroEclipse II Nebulizer Misc See Rx Instructions .ROUTE .MEDSUPPLY Qty: 1 RF: 0 albuterol sulfate 0.63 mg/3 mL solution for nebulization 0.63 mg inhalation QID PRN (Reason: shortness of breath or wheezing) Qty: 75 RF: 0 albuterol sulfate 90 mcg/actuation HFA aerosol inhaler 1 inh inhalation QID PRN (Reason: shortness of breath or wheezing) Qty: 8.5 RF: 0 codeine-guaifenesin [Guaifenesin AC] 10-100 mg/5 mL liquid 5 ml PO Q6H PRN (Reason: cold symptoms) Qty: 120 RF: 0 doxycycline hyclate 100 mg tablet 100 mg PO BID 10 Days Qty: 20 RF: 0 prednisone 20 mg tablet 40 mg PO DAILY 5 Days Qty: 10 RF: 0 latanoprost 0.005 % drops 1 drp ophthalmic (eye) DAILY RF: 0 fluticasone propionate 110 mcg/actuation HFA aerosol inhaler 2 puff inhalation BID Qty: 12 RF: 7 prednisone 20 mg tablet 40 mg PO DAILY 5 Days Qty: 10 RF: 0 epinephrine 0.3 mg/0.3 mL auto-injector 0.3 mg IM Q10M PRN (Reason: anaphylaxis) Qty: 2 RF: 1 (DME) BreatheRite Valved MDI Spacer Spacer See Rx Instructions .Route Qty: 1 RF: 0 albuterol sulfate [ProAir HFA] 90 mcg/actuation HFA aerosol inhaler 2 puff inhalation Q4-6H PRN (Reason: shortness of breath or wheezing) Qty: 8.5 RF: 0 prednisone 10 mg tablet See Rx Instructions PO DAILY 10 Days Qty: 28 RF: 0 azithromycin [Zithromax Z-Vladimir] 250 mg tablet See Rx Instructions PO .COMPLEX 5 Days Qty: 6 RF: 0 Stand Alone Forms: Work/School Release Interventions: ED Discharge Assessment Last Done: 05/05/21 20:38 Discharge Date/Time: 05/05/21 20:40 Print Language: Amharic
[2021-05-05 18:00] VITALS: BP 155/92; PULSE 83; RESP 16; O2SAT 97
[2021-05-05 19:21] VITALS: BP 144/89; PULSE 90; RESP 18; O2SAT 96
== END 2021-05-05 20:40 | disposition home or self-care (01) ==
PROVIDERS: Emergency Provider Emergency Medicine Emergency Medical Services; PCP Internal Medicine
DX: S43.402A Unspecified sprain of left shoulder joint, initial encounter (principal); S40.012A Contusion of left shoulder, initial encounter; M25.512 Pain in left shoulder; M54.2 Cervicalgia; M54.6 Pain in thoracic spine; G44.309 Post-traumatic headache, unspecified, not intractable; W00.0XXA Fall on same level due to ice and snow, initial encounter; Y93.89 Activity, other specified; Y92.9 Unspecified place or not applicable; Y99.9 Unspecified external cause status; Z79.899 Other long term (current) drug therapy
CPT/HCPCS: 70450; 71250; 72125; 73000; 73030; 73200; 99284

== ENCOUNTER 2021-06-22 15:00 | Outpatient (RCR) | payer OTHER, SELFPAY ==
--- NOTE | 2021-06-22 17:56 | MHC.PT.EP ---
[facility] [place] Office [place] Office [place] Office [address] Beverley Levi [address] [phone] F: [phone] F: [phone] F: [phone] F: [phone] Physical Therapy Plan of Care Date of Evaluation: Date of Surgery: N/A Diagnosis: Pain in left shoulder Assessment: Pt is a 65yo F who presents to PT with L shoulder pain after slipping on ice on 05/05/21. Xrays were negative for fracture and dislocation. Pt presents today with current impairments in pain, decreased ROM, decreased strength, soft tissue restrictions, and impaired posture. She is limited functionally by lifting, reaching, overhead ADLs, and sleeping. She is a good candidate for skilled PT services in order to address current impairments to facilitate return to PLOF. She will be seen 2x/week for 4 weeks and will be reassessed at that time. Frequency and Duration: The patient will be seen 1x/week for 4 weeks Short Term Goals: Pt will be I with HEP to promote self management of symptoms Pt will improve L shoulder flex by at least 5 degrees Medical Record Technician Goals: Pt will achieve full ROM throughout L shoulder Pt will perform overhead ADLs without compensation with pain < 4/10 Pt will demonstrate improvements in function as evidenced by statistically significant improvements in SPADI outcome measure Treatment Plan: Modalities to reduce pain, spasms and effusion. Manual therapy to restore motion and function. Therapeutic exercise to improve strength and flexibility. Neuromuscular re-education for posture and balance. Therapeutic activities to return to functional activities of daily living. Electronically signed by: Sophia Echols, PT, DPT Please sign and return to therapist. Thank you for your referral.
--- NOTE | 2021-06-22 18:33 | MHC.PT.EP ---
[facility] [place] Office [place] Office [place] Office [address] Beverley Levi [address] [phone] F: [phone] F: [phone] F: [phone] F: [phone] Physical Therapy Plan of Care Date of Evaluation: Date of Surgery: N/A Diagnosis: Pain in left shoulder Assessment: Pt is a 65yo F who presents to PT with L shoulder pain after slipping on ice on 05/05/21. Xrays were negative for fracture and dislocation. Pt presents today with current impairments in pain, decreased ROM, decreased strength, soft tissue restrictions, and impaired posture. She is limited functionally by lifting, reaching, overhead ADLs, and sleeping. She is a good candidate for skilled PT services in order to address current impairments to facilitate return to PLOF. She will be seen 1x/week for 4 weeks and will be reassessed at that time. Frequency and Duration: The patient will be seen 1x/week for 4 weeks Short Term Goals: Pt will be I with HEP to promote self management of symptoms Pt will improve L shoulder flex by at least 5 degrees Garde Manager Goals: Pt will achieve full ROM throughout L shoulder Pt will perform overhead ADLs without compensation with pain < 4/10 Pt will demonstrate improvements in function as evidenced by statistically significant improvements in SPADI outcome measure Treatment Plan: Modalities to reduce pain, spasms and effusion. Manual therapy to restore motion and function. Therapeutic exercise to improve strength and flexibility. Neuromuscular re-education for posture and balance. Therapeutic activities to return to functional activities of daily living. Electronically signed by: Sophia Echols, PT, DPT Please sign and return to therapist. Thank you for your referral.
--- NOTE | 2021-08-12 15:41 | MHC.PT.DC ---
[facility] [place] Office [place] Office [place] Office [address] Beverley Levi [address] [phone] F: [phone] F: [phone] F: [phone] F: [phone] Physical Therapy Discharge Report Diagnosis: Pain in left shoulder Date of Surgery: N/A Date of Evaluation: 06/22/21 Date of Discharge: 08/12/21 Treatments to Date: 1 Cancellations to Date: 4 No Shows to Date: Discharge Status: Patient Elected to Stop Discharge Summary: Pt was evaluated on 06/22/21. Pt cancelled her remaining PT appointments. Pt did not call to reschedule in over 30 days. Pt is being D/C from skilled PT at this time. Pt current level of function unknown at this time. Electronically signed by: Sophia Echols, PT, DPT Please sign and return to therapist. Thank you for your referral.
== END 2021-08-12 15:43 | disposition home or self-care (01) ==
LOC: HO.PT 15:00
PROVIDERS: PCP Family Medicine; Visit Provider Family Medicine
DX: M25.512 Pain in left shoulder (principal)
CPT/HCPCS: 97162

== ENCOUNTER 2021-10-30 14:55 | Outpatient (REF) | payer OTHER, SELFPAY ==
--- NOTE | ~2021-10-30 | MM_ITS ---
EXAMINATION: MM SCREENING DIGITAL BREAST TOMOSYNTHESIS, BILATERAL CLINICAL INFORMATION: Screening. Asymptomatic. The lifetime risk of breast cancer based on the Tyrer-Cuzick Model is 4.9%. COMPARISON: Mammography: October 28, 2020 and studies dating back to January 04, 2014 TECHNIQUE: Digital breast tomosynthesis is performed in both the craniocaudal and mediolateral oblique views along with computer-aided detection (CAD). Synthesized 2D images are generated from the tomosynthesis. FINDINGS: The breasts are heterogeneously dense, which may obscure small masses (ACR BI-RADS breast composition Category c). There are no significant masses, abnormal calcifications, or other abnormalities. MM/MM tomosynthesis screening BI IMPRESSION: There are no significant changes from prior study. ASSESSMENT: BI-RADS 1: Negative RECOMMENDATION: Routine annual mammography screening. This patient's information was entered into a reminder system with a target due date for their next mammogram.
== END 2021-10-30 14:56 | disposition home or self-care (01) ==
LOC: HO.MAMMO 14:55
PROVIDERS: PCP Family Medicine; Visit Provider Family Medicine
DX: Z12.31 Encounter for screening mammogram for malignant neoplasm of breast (principal)
CPT/HCPCS: 77063; 77067

== ENCOUNTER 2021-11-19 10:35 | Outpatient (REF) | payer OTHER, SELFPAY ==
[2021-11-19 10:53] LABS: MANUAL DIFF FLAG NO
[2021-11-19 11:25] LABS: Basophils Absolute Auto 0.1 X10*3/uL (0.0-0.2); Basophils Percent Auto 0.7 % (0-2); Eosinophils Absolute Auto 0.4 X10*3/uL (0.0-0.4); Eosinophils Percent Auto 4.9 % (0-4); Hematocrit 41.7 % (37.0-47.0); Hemoglobin 14.4 g/dl (12.0-16.0); Imm Gran Abs Auto 0.02 X10*3/uL (0.00-0.03); Imm Gran Pct Auto 0.3 % (0.0-0.4); Lymphocytes Absolute Auto 2.4 X10*3/uL (1.2-4.9); Lymphocytes Percent Auto 34.1 % (20-40); Mean Corpuscular HGB Conc 34.5 g/dl (31.0-35.0); Mean Corpuscular Hemoglobin 30.4 pg (27.0-33.0); Mean Corpuscular Volume 88.2 fL (80.0-98.0); Mean Platelet Volume 9.3 fL (9.4-12.3); Monocytes Absolute Auto 0.5 X10*3/uL (0.1-1.2); Monocytes Percent Auto 7.3 % (2-11); Neutrophils Absolute Auto 3.8 x10*3/uL (2.0-8.3); Neutrophils Percent Auto 52.7 % (45-73); Platelet Count 298 X10*3/uL (160-400); Red Blood Count 4.73 X10*6/uL (4.20-5.50); Red Cell Distribution Width 11.8 % (11.0-16.0); White Blood Count 7.2 X10*3/uL (4.8-10.8)
[2021-11-19 11:38] LABS: Appearance Urine CLEAR; Color Urine YELLOW; Glucose Urine UA NEG (NEG); Leukocyte Esterase Urine NEG (NEG); Nitrite Urine NEG (NEG); PH 5.5 (5.0-8.0); Urine Blood NEG (NEG); Urine Ketones NEG (NEG); Urine Protein NEG (NEG-TRACE)
[2021-11-19 11:58] LABS: Alanine Aminotransferase 32 U/L (0-31); Albumin Level 3.8 g/dL (3.5-5.0); Alkaline Phosphatase 83 U/L (39-117); Anion Gap 12 (12-20); Aspartate Amino Transferase 27 U/L (5-31); Blood Urea Nitrogen 13 mg/dL (9-16); Calcium 9.3 mg/dL (8.4-10.2); Carbon Dioxide 28 mmol/L (22-29); Chloride 103 mmol/L (96-108); Cholesterol 192 mg/dL; Estimated Glomerular Filt Rate > 60; Glucose Fasting 102 mg/dL (60-99); HDL Cholesterol 44 mg/dL; LDL Cholesterol Calculated 131 mg/dl; Potassium 4.5 mmol/L (3.3-5.1); Sodium 138 mmol/L (135-145); Triglycerides 88 mg/dL
[2021-11-19 12:09] LABS: Creatinine Urine 44.68 mg/dL; Microalbumin Urine < 5.0 mg/L
[2021-11-19 12:21] LABS: Free T4 (Free Thyroxine) 1.55 ng/dL (0.71-1.85); Thyroid Stimulating Hormone 0.02 uIU/mL (0.32-4.0)
[2021-11-19 12:32] LABS: Folate 6.7 ng/mL (> or = 4.0); Vitamin B12 568 pg/mL (200-900)
[2021-11-21 07:41] LABS: Triiodothyronine T3 Total 142 ng/dL (76-181)
== END 2021-11-19 10:36 | disposition home or self-care (01) ==
LOC: HO.LAB 10:35
PROVIDERS: PCP Family Medicine; Visit Provider Family Medicine
DX: Z00.00 Encounter for general adult medical examination without abnormal findings (principal); E03.9 Hypothyroidism, unspecified; E53.8 Deficiency of other specified B group vitamins; I10 Essential (primary) hypertension
CPT/HCPCS: 36415; 80053; 80061; 81003; 82043; 82607; 82746; 84439; 84443; 84480; 85025

== ENCOUNTER 2021-12-29 07:57 | Outpatient (REF) | payer OTHER, SELFPAY ==
[2021-12-29 09:16] LABS: TSH reflex Free T4 2.51 uIU/mL (0.32-4.0)
== END 2021-12-29 07:58 | disposition home or self-care (01) ==
LOC: HO.LAB 07:57
PROVIDERS: Absent Provider Family Medicine; PCP Family Medicine; Visit Provider Hospitalist
DX: E03.9 Hypothyroidism, unspecified (principal)
CPT/HCPCS: 36415; 84443

== ENCOUNTER → 2022-04-28 10:45 | Outpatient (BNVA) | payer OTHER, SELFPAY | PROVIDERS: PCP Family Medicine; Visit Provider Orthopaedic Surgery | DX: M65.342 Trigger finger, left ring finger (principal) | CPT/HCPCS: 99202 ==

== ENCOUNTER 2022-06-14 10:42 | Day surgery (SDC) | payer OTHER, SELFPAY ==
--- NOTE | 2022-06-14 10:30 | W.PM.OPN ---
Operative Note Operative Note Date of Service: 06/14/22 Narrative: Operative Note Preop diagnosis: 1. Left ring finger Trigger finger Postop diagnosis: 1. Left ring finger Trigger finger Procedure: 1. Left ring finger A1 raz release Surgeon: Loida Amin MD Anesthesia: local block using 1% lidocaine with epinephrine Findings: No locking or catching after A1 raz release EBL: Less than 5 mL Tourniquet time: None Specimens: None Complications: None Disposition: Brought to recovery room in stable condition Plan: Follow-up for 10-14 days for wound check and suture removal Indications: The patient is 66 years old, with a left ring finger trigger finger that has been unresponsive to nonoperative management. The risks and benefits of operative treatment including but not limited to risk of damage to blood vessels, nerves, tendons, infection, persistent pain, persistent symptoms, recurrence or possible need for additional surgery were discussed with the patient and the patient wishes to proceed with surgery. Procedure: Once consent was obtained a local block was performed in the preop area using a combination of 1% lidocaine with epinephrine. The patient was then brought back to the operating suite and placed on the operative table in supine position. The left upper extremity was prepped and draped in a standard surgical fashion. Once assured that we had a good block, a 1.5 cm oblique incision was made centered over the A1 raz of the left ring finger . The incision was made through the skin to the subcutaneous tissues using a #15 blade. Careful dissection was made down to the level of the A1 raz using tenotomy scissors, with care being taken to protect the nearby neurovascular structures. A longitudinal incision was made in the A1 raz 1st using a #15 blade, then using tenotomy scissors under direct visualization. The A1 raz was noted to be thickened. Following our A1 raz release, we no longer saw any locking or catching of the digit with flexion and extension. Once satisfied with our A1 raz release the wound was copiously irrigated with normal saline and hemostasis was obtained with a brief period of local pressure. The skin edges were reapproximated with some 5.0 nylon suture material and a sterile dressing was applied. The patient appears to have tolerated the procedure well and with no complications. All digits were well vascularized at the conclusion of the case.
[2022-06-14 12:03] VITALS: BMI 32.5
[2022-06-14 12:12] VITALS: BP 186/97; PULSE 60; RESP 16; TEMP 36.5; O2SAT 97
--- NOTE | 2022-06-14 13:51 | MHC.SHP ---
Pre-Procedural Eval Section A Date of Service: 06/14/22 The patient is an INPATIENT: No Changes since office visit: No Cold of Flu in the past 2 weeks, No New Medical Problems, No Changes in Medication and No Patient answered all questions The History & Physical has been completed within 30 days and I have reviewed it.: Yes Section B Chief Complaint: Trigger finger, left ring finger Allergies: Allergies Allergy/AdvReac Type Severity Reaction Status Date / Time latex [LATEX] Allergy Unknown ANAPHYLAXIS Verified 04/28/22 11:05 fruits Allergy Unknown itchy Uncoded 04/28/22 11:05 throat Plan I have reviewed the history and physical and performed a pertinent physical examination on my patient. No changes have occurred unless specified. Time Spent With Patient Time: Total time managing care of this patient today ____ minutes.
[2022-06-14 15:07] VITALS: BP 191/98; PULSE 76; RESP 18
== END 2022-06-14 15:09 | disposition home or self-care (01) ==
PROVIDERS: PCP Family Medicine; Visit Provider Orthopaedic Surgery
PROC: (CPT 26055; principal; 2022-06-14 13:20)
DX: M65.342 Trigger finger, left ring finger (principal); J45.909 Unspecified asthma, uncomplicated; I10 Essential (primary) hypertension; E78.00 Pure hypercholesterolemia, unspecified; E66.9 Obesity, unspecified; Z68.33 Body mass index [BMI] 33.0-33.9, adult; Z94.7 Corneal transplant status; Z91.040 Latex allergy status; Z86.16 Personal history of COVID-19
CPT/HCPCS: 26055; J0171

== ENCOUNTER → 2022-07-12 09:14 | Outpatient (BNVA) | payer OTHER, SELFPAY | PROVIDERS: PCP Family Medicine; Visit Provider Orthopaedic Surgery | DX: Z13.89 Encounter for screening for other disorder (principal) ==

== ENCOUNTER → 2022-08-25 08:03 | Outpatient (BNVA) | payer OTHER, SELFPAY | PROVIDERS: PCP Family Medicine; Visit Provider Orthopaedic Surgery ==

== ENCOUNTER 2022-11-09 06:30 | Outpatient (REF) | payer OTHER, SELFPAY ==
[2022-11-09 06:40] LABS: MANUAL DIFF FLAG NO
[2022-11-09 07:32] LABS: Basophils Absolute Auto 0.1 X10*3/uL (0.0-0.2); Basophils Percent Auto 0.7 % (0-2); Eosinophils Absolute Auto 0.5 X10*3/uL (0.0-0.4); Eosinophils Percent Auto 5.3 % (0-4); Hemoglobin 14.1 g/dl (12.0-16.0); Imm Gran Abs Auto 0.02 X10*3/uL (0.00-0.03); Imm Gran Pct Auto 0.2 % (0.0-0.4); Lymphocytes Absolute Auto 3.2 X10*3/uL (1.2-4.9); Lymphocytes Percent Auto 37.3 % (20-40); Mean Corpuscular HGB Conc 33.6 g/dl (31.0-35.0); Mean Corpuscular Hemoglobin 30.9 pg (27.0-33.0); Mean Corpuscular Volume 92.1 fL (80.0-98.0); Mean Platelet Volume 9.2 fL (9.4-12.3); Monocytes Absolute Auto 0.7 X10*3/uL (0.1-1.2); Monocytes Percent Auto 8.5 % (2-11); Neutrophils Absolute Auto 4.2 x10*3/uL (2.0-8.3); Platelet Count 329 X10*3/uL (160-400); Red Blood Count 4.56 X10*6/uL (4.20-5.50); Red Cell Distribution Width 11.9 % (11.0-16.0); White Blood Count 8.7 X10*3/uL (4.8-10.8)
[2022-11-09 08:07] LABS: Alanine Aminotransferase 35 U/L (0-31); Albumin Level 3.8 g/dL (3.5-5.0); Alkaline Phosphatase 76 U/L (39-117); Anion Gap 13 (12-20); Aspartate Amino Transferase 29 U/L (5-31); Bilirubin Total 0.9 mg/dL (0.0-1.0); Blood Urea Nitrogen 18 mg/dL (9-16); Calcium 9.4 mg/dL (8.4-10.2); Carbon Dioxide 29 mmol/L (22-29); Chloride 104 mmol/L (96-108); Cholesterol 183 mg/dL; Estimated Glomerular Filt Rate > 60; Glucose Random 104 mg/dL (60-115); HDL Cholesterol 46 mg/dL; LDL Cholesterol Calculated 119 mg/dl; Potassium 4.7 mmol/L (3.3-5.1); Sodium 141 mmol/L (135-145); Total Protein 7.1 g/dL (6.5-8.0); Triglycerides 93 mg/dL
[2022-11-09 08:47] LABS: Folate 13.3 ng/mL (> or = 4.0); Free T4 (Free Thyroxine) 1.09 ng/dL (0.71-1.85); Thyroid Stimulating Hormone 0.18 uIU/mL (0.32-4.0); Vitamin B12 916 pg/mL (200-900)
== END 2022-11-09 06:31 | disposition home or self-care (01) ==
LOC: HO.LAB 06:30
PROVIDERS: PCP Internal Medicine; Visit Provider Internal Medicine
DX: E78.00 Pure hypercholesterolemia, unspecified (principal)
CPT/HCPCS: 36415; 80053; 80061; 82306; 82607; 82746; 84439; 84443; 85025

== ENCOUNTER 2022-11-19 13:13 | Outpatient (REF) | payer OTHER, SELFPAY ==
--- NOTE | ~2022-11-19 | MM_ITS ---
EXAMINATION: MM SCREENING DIGITAL BREAST TOMOSYNTHESIS, BILATERAL CLINICAL INFORMATION: Screening. Asymptomatic. The lifetime risk of breast cancer based on the Tyrer-Cuzick Model is 5%. COMPARISON: Mammography: 10/30/2021, 10/28/2020, 07/19/2019 TECHNIQUE: Digital breast tomosynthesis is performed in both the craniocaudal and mediolateral oblique views along with computer-aided detection (CAD). Synthesized 2D images are generated from the tomosynthesis. Additional left CC view is provided. FINDINGS: There are scattered areas of fibroglandular density (ACR BI-RADS breast composition Category b). Breast tissue composition borders on heterogeneously dense. Parenchymal pattern is similar to prior exams and there is no developing density or architectural abnormality. There are no significant masses, abnormal calcifications, or other abnormalities. The axilla and skin contours are unremarkable. MM/MM tomosynthesis screening BI IMPRESSION: No mammographic evidence of malignancy. ASSESSMENT: BI-RADS 1: Negative RECOMMENDATION: Routine annual mammography screening. This patient's information was entered into a reminder system with a target due date for their next mammogram.
== END 2022-11-19 13:14 | disposition home or self-care (01) ==
LOC: HO.MAMMO 13:13
PROVIDERS: PCP Internal Medicine; Visit Provider Internal Medicine
DX: Z12.31 Encounter for screening mammogram for malignant neoplasm of breast (principal)
CPT/HCPCS: 77063; 77067

== ENCOUNTER 2023-03-08 06:34 | Outpatient (REF) | payer OTHER, SELFPAY | END 2023-03-08 06:35 | disposition home or self-care (01) | LOC: HO.LAB 06:34 | PROVIDERS: PCP Internal Medicine; Visit Provider Internal Medicine | DX: E03.9 Hypothyroidism, unspecified (principal) | CPT/HCPCS: 36415; 84439; 84443 ==

== ENCOUNTER 2023-03-09 08:44 | Outpatient (AMB) | payer OTHER, SELFPAY ==
[2023-03-09 08:59] VITALS: BP 132/82; PULSE 49; O2SAT 98; BMI 32.6
--- NOTE | 2023-03-09 08:59 | MHC.PC.OV ---
Vital Signs 03/09/23 08:59 03/09/23 09:39 Height 5 ft 2.5 in Weight 181 lb BMI 32.6 BP 132/82 Blood Pressure Location Lt brachial Position Sitting Pulse 49 L 59 Pulse Source Pulse Oximeter Auscultation Pulse Oximetry (%) 98 Oxygen Delivery Method Room Air Intake Visit Reasons: 3 Month F/Up Allergies latex [LATEX] Allergy (Unknown, Verified 03/09/23 08:59) ANAPHYLAXIS fruits Allergy (Unknown, Uncoded 03/09/23 08:59) itchy throat Medication List - Last Reconciled 03/09/23 by Felipe Perry MD albuterol sulfate 0.63 mg (3 mL) inhalation QID PRN albuterol sulfate 90 mcg/actuation (ProAir HFA) 2 puffs inhalation Q4-6H PRN aspirin (Adult Low Dose Aspirin) 81 mg PO DAILY azithromycin (Zithromax) For 250 mg dose pack: take 500 mg today (day 1), then 250 mg for 4 days (days 2-5) PO cyanocobalamin (vitamin B-12) 1,000 mcg PO DAILY epinephrine 0.3 mg (0.3 mL) IM Q10M PRN Flovent HFA 110 mcg/actuation (fluticasone propionate) 1 puff inhalation Q12H 30 days NS inhalational spacing device (BreatheRite Valved MDI Spacer) As directed latanoprost 0.005% 1 drp ophthalmic (eye) DAILY levothyroxine 75 mcg PO DAILY 90 days lisinopril 20 mg PO DAILY 90 days lorazepam 0.5 mg PO BEDTIME PRN 30 days nebulizers (AeroEclipse II Nebulizer) As directed Tobacco use date assessed: 11/19/22 Fall risk assessment: No Falls in past year Last assessed Fall Risk: 03/09/23 Dental Screening Dental Screen Date: 03/09/23 Did you have a dental visit in the last 12 months?: No Did you have a dental problem in the last 6 months where you did not have access to dental care?: No Was dental information given to patient?: Patient has dentist HPI 3 Month F/Up HPI Details 67-year-old obese female with hypertension hypothyroid hypercholesterolemia asthma and generalized anxiety disorder last seen in October 2022 Brendan was sent in patient is here for follow-up. PAtient was recently given z ko . patient is going on a cruise and asking for an ab in case. . complains of having low back pain and asking for excuse from work for the moment. [facility] Medical History (Updated 03/09/23 @ 09:44 by Felipe Perry MD) Laboratory exam ordered as part of routine general medical examination Bronchitis SOB (shortness of breath) Hypertension COVID-19 Allergic rhinitis Asthma Anxiety Hypothyroid Hypercholesterolemia Obesity (BMI 30.0-34.9) Surgical History Cornea replaced by transplant History of trigger finger Status post corneal transplant History of section Family History (Updated 03/09/23 @ 09:02 by Laura Young CMA) Father Aneurysm CVA (cerebral vascular accident) Mother Hypertension Paternal Grandfather Brain aneurysm Social History Housing: House Alcohol intake: never Patient Tobacco Use Status: Never used Tobacco e-Cigarette/Vaping Use: Never Used Second Hand Smoke Exposure: No service: Yes Current occupational status: employed 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 1. Little interest or pleasure in doing things: not at all 2. Feeling down, depressed, or hopeless: not at all 3. Trouble falling or staying asleep, or sleeping too much: not at all 4. Feeling tired or having little energy: not at all 5. Poor appetite or overeating: not at all 6. Feeling bad about yourself - or that you are a failure or have let yourself or your family down: not at all 7. Trouble concentrating on things, such as reading the newspaper or watching television: not at all 8. Moving or speaking so slowly that other people could have noticed. Or the opposite - being so fidgety or restless that you have been moving around a lot more than usual: not at all 9. Thoughts that you would be better off or of hurting yourself in some way: not at all Total score: 0 Depression Screening Interpretation: Negative Depression Screening Done: Yes Source: Developed by Drs. Humberto L. NataliaBreann allen Kurt Kroenke and colleagues, with an educational everardo from [employer]. Thrive Questionnaire Date Thrive assessed: 11/19/22 AUDIT C Alcohol Use Questionnaire (AUDIT-C) 1. How often do you have a drink containing alcohol?: Never 3. How often do you have six or more drinks on one occasion?: Never Total Score: 0 Score Reviewed/Action Taken: No MURPHY-7 AMB Questionnaire MURPHY-7 Date MURPHY - 7 assessed: 11/19/22 Source: Developed by Breann Ortega Kurt Kroenke and colleagues, with an educational everardo from [employer]. Physical exam (Primary Care) Vital Signs: Last Vital Signs Pulse 59 03/09/23 09:39 BP 132/82 03/09/23 08:59 Pulse Ox 98 03/09/23 08:59 Oxygen Delivery Method Room Air 03/09/23 08:59 BMI result Body Mass Index 32.6 Tobacco/Smoking Status: Tobacco use Status Tobacco use date assessed 11/19/22 03/09/23 09:00 Patient Tobacco Use Status Never used Tobacco 03/09/23 09:00 e-Cigarette/Vaping Use Never Used 03/09/23 09:00 PHQ-9: PHQ-9 Score PHQ-9: Total score 0 03/09/23 17:00 Depression Screening Interpretation: Negative Thrive Assessment: Date of Thrive Assessment Date Thrive assessed 11/19/22 03/09/23 09:00 Const General: alert; No acute distress Eyes Conjunctivae: conjunctivae normal Resp Auscultation: clear to auscultation bilaterally Cardio Rate: regular rate Rhythm: regular rhythm GI Inspection: Yes normal to inspection Extrem General: Yes normal to inspection and No edema Office Procedures Flu Questionnaire Does the patient have a severe egg allergy?: No Does the patient have severe life threatening allergies?: No Does the patient have a fever or illness today?: No Has the patient ever had Guillain-[place] Syndrome?: No Has the patient ever had any past reaction to a flu shot?: No Immunizations flu vacc [id number] 6mos up(PF) 60 mcg(15 mcgx4)/0.5 mL IM syringe Performing Provider: Felipe Perry MD [facility] Documented (not given) by: Laura Young CMA on 03/09/23 09:09 Reason Not Given: Patient Refused Assessment and Plan Assessment & Plan (1) Hypertension: Code(s): I10 - Essential (primary) hypertension Qualifiers: Hypertension type: essential hypertension Qualified Code(s): I10 - Essential (primary) hypertension Plan: Continue with blood pressure medication. Decrease salt intake and exercise patient is on lisinopril 20 mg once a day (2) Hypercholesterolemia: Code(s): E78.00 - Pure hypercholesterolemia, unspecified Plan: Avoid fried foods, chicken skin, eggs, butter margarine, pastries and meat. Be it pork or beef they have a lot of cholesterol LDL goal of less than 130 and triglyceride of less than 150 no blood work better on diet control (3) Hypothyroid: Code(s): E03.9 - Hypothyroidism, unspecified Qualifiers: Hypothyroidism type: acquired Qualified Code(s): E03.9 - Hypothyroidism, unspecified Plan: Continue with thyroid medication adjustment done to 75 mcg once a day (4) Asthma: Code(s): J45.909 - Unspecified asthma, uncomplicated Qualifiers: Asthma complication type: uncomplicated Asthma persistence: intermittent Asthma severity: mild Qualified Code(s): J45.20 - Mild intermittent asthma, uncomplicated Plan: Continue with inhaler (5) Generalized anxiety disorder: Code(s): F41.1 - Generalized anxiety disorder Plan: Continue with anxiety medication as needed (6) Colon cancer screening: Comment: Colonoscopy refused Code(s): Z12.11 - Encounter for screening for malignant neoplasm of colon Plan: Reminded about colonoscopy (7) Low back pain: Code(s): M54.50 - Low back pain, unspecified Plan: excuse note from work 1 week Orders: Orders Influenza [id number] Immunization Today Z23 - Encounter for immunization Medications: New doxycycline hyclate 100 mg PO BID 14 caps 0RF J45.40 - Moderate persistent asthma, uncomplicated doxycycline hyclate 100 mg PO BID 14 caps 0RF J45.40 - Moderate persistent asthma, uncomplicated Changed From lorazepam 0.5 mg PO BEDTIME 30 days PRN 30 tabs 0RF anxiety F41.1 - Generalized anxiety disorder To lorazepam 0.5 mg PO BEDTIME PRN 15 tabs 0RF anxiety 15 days F41.1 - Generalized anxiety disorder Discontinued azithromycin (Zithromax) Discontinued Reason: Patient Completed Course For 250 mg dose pack: take 500 mg today (day 1), then 250 mg for 4 days (days 2-5) PO 6 tabs 0RF Coding Level of Care Code Est Pt Level 4 (72583) Diagnoses Essential hypertension I10 Hypertension type: essential hypertension Hypercholesterolemia E78.00 Acquired hypothyroidism E03.9 Hypothyroidism type: acquired Mild intermittent asthma without complication J45.20 Asthma complication type: uncomplicated Asthma persistence: intermittent Asthma severity: mild Generalized anxiety disorder F41.1 Colon cancer screening Z12.11 Low back pain M54.50 Additional Codes PHQ-9 - 70947 - PHQ-9 Billing: ([id number])
[2023-03-09 09:39] VITALS: PULSE 59
== END 2023-03-09 09:55 | disposition home or self-care (01) ==
PROVIDERS: PCP Internal Medicine; Visit Provider Internal Medicine
DX: I10 Essential (primary) hypertension (principal); E78.00 Pure hypercholesterolemia, unspecified; E03.9 Hypothyroidism, unspecified; J45.20 Mild intermittent asthma, uncomplicated; F41.1 Generalized anxiety disorder; M54.50 Low back pain, unspecified
CPT/HCPCS: 99214

== ENCOUNTER 2023-07-11 08:00 | Outpatient (AMB) | payer OTHER, SELFPAY ==
--- NOTE | 2023-07-11 08:01 | MHC.PC.OV ---
Intake Visit Reasons: Chest tightness Allergies latex [LATEX] Allergy (Unknown, Verified 07/11/23 08:02) ANAPHYLAXIS fruits Allergy (Unknown, Uncoded 07/11/23 08:02) itchy throat Tobacco use date assessed: 07/11/23 Fall risk assessment: No Falls in past year Last assessed Fall Risk: 07/11/23 Dental Screening Dental Screen Date: 07/11/23 Did you have a dental visit in the last 12 months?: No Did you have a dental problem in the last 6 months where you did not have access to dental care?: No Was dental information given to patient?: No HPI Chest tightness HPI Details 67-year-old with a history of hypertension hypercholesterolemia asthma hypothyroid generalized anxiety disorder calling in for an acute problem.last tuesday 23 days chest tigthness, hard to breath out, cough, no fevers, this this was february the last time prodcutive few secreations. has wheezing this has been getting worse. sick also [facility] Medical History (Updated 03/09/23 @ 09:44 by Felipe Perry MD) Laboratory exam ordered as part of routine general medical examination Bronchitis SOB (shortness of breath) Hypertension COVID-19 Allergic rhinitis Asthma Anxiety Hypothyroid Hypercholesterolemia Obesity (BMI 30.0-34.9) Surgical History Cornea replaced by transplant History of trigger finger Status post corneal transplant History of section Family History (Updated 03/09/23 @ 09:02 by Laura Young CMA) Father Aneurysm CVA (cerebral vascular accident) Mother Hypertension Paternal Grandfather Brain aneurysm Social History Housing: House Alcohol intake: never Patient Tobacco Use Status: Never used Tobacco e-Cigarette/Vaping Use: Never Used Second Hand Smoke Exposure: No service: Yes Current occupational status: employed 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 1. Little interest or pleasure in doing things: not at all 2. Feeling down, depressed, or hopeless: not at all 3. Trouble falling or staying asleep, or sleeping too much: not at all 4. Feeling tired or having little energy: not at all 5. Poor appetite or overeating: not at all 6. Feeling bad about yourself - or that you are a failure or have let yourself or your family down: not at all 7. Trouble concentrating on things, such as reading the newspaper or watching television: not at all 8. Moving or speaking so slowly that other people could have noticed. Or the opposite - being so fidgety or restless that you have been moving around a lot more than usual: not at all 9. Thoughts that you would be better off or of hurting yourself in some way: not at all Total score: 0 Depression Screening Interpretation: Negative Depression Screening Done: Yes Source: Developed by Drs. Humberto Fisher, Breann Wing, Linus Mar and colleagues, with an educational everardo from [employer]. Thrive Questionnaire Date Thrive assessed: 07/11/23 I am a: Patient What is your living situation today?: I have a steady place to live Within the past 12 months, did the food you bought not last and you didn't have the money to get more?: Never true Within the past 12 months, did you worry whether your food would run out before you got money to buy more?: Never true Do you have trouble paying for medicines?: No Do you have trouble getting transportation to medical appointments?: No Do you have trouble paying your heating and electricity bill?: No Do you have trouble taking care of your child, family member or friend?: No Do you have trouble with day-to-day activities such as bathing, preparing meals, shopping, managing finances, etc.?: No Are you currently unemployed and looking for a job?: No Are you interested in more education?: No Currently or been in a relationship where the following occur: no concerns reported THRIVE Score: 0 AUDIT C Alcohol Use Questionnaire (AUDIT-C) 1. How often do you have a drink containing alcohol?: Never 3. How often do you have six or more drinks on one occasion?: Never Total Score: 0 Score Reviewed/Action Taken: No MURPHY-7 AMB Questionnaire MURPHY-7 Date MURPHY - 7 assessed: 07/11/23 Feeling nervous, anxious, or on edge: 0 = Not at all Not being able to stop or control worryin = Not at all Worrying too much about different things: 0 = Not at all Trouble relaxin = Not at all Being so restless that it is hard to sit still: 0 = Not at all Becoming easily annoyed or irritable: 0 = Not at all Feeling afraid as if something awful might happen: 0 = Not at all Total MURPHY-7 score (0-4 normal; 5-9 mild; 10-14 moderate; 15-21 severe): 0 Source: Developed by Drs. Humberto Fisher, Breann Wing, Linus Mar and colleagues, with an educational everardo from [employer]. Physical exam (Primary Care) Tobacco/Smoking Status: Tobacco use Status Tobacco use date assessed 07/11/23 07/11/23 08:04 Patient Tobacco Use Status Never used Tobacco 07/11/23 08:01 e-Cigarette/Vaping Use Never Used 07/11/23 08:01 PHQ-9: PHQ-9 Score PHQ-9: Total score 0 07/11/23 08:04 Depression Screening Interpretation: Negative Thrive Assessment: Date of Thrive Assessment Date Thrive assessed 07/11/23 07/11/23 08:04 Currently or been in a relationship where the following occur: no concerns reported Telehealth Telehealth Location of provider rendering services: practice address Location of patient: address on file Patient Identification confirmed using: Name, : Yes Telehealth method: video (Iphone) Patient verbally consented to treatment: Yes Patient verbally consented to billing insurance company: Yes Patient informed of any privacy concerns related to visit: Yes Minutes spent on Phone/Video with Pt.: 15 Assessment and Plan Assessment & Plan (1) Asthma exacerbation: Code(s): J45.901 - Unspecified asthma with (acute) exacerbation Plan: Patient is advised to increase oral fluids to start with prednisone to help with the wheezing, albuterol rescue inhaler which is needed and an antibiotic. Medications: New prednisone 4 tabs QD x 2 days then 3 tabs QD x 2 days then 2 tabs Qd x 2 days then 1 tab QD x 2 days PO daily; 20 tabs 0RF J45.20 - Mild intermittent asthma, uncomplicated, J45.909 - Unspecified asthma, uncomplicated albuterol sulfate 90 mcg/actuation (Ventolin HFA) 2 puffs inhalation Q6H PRN 8.5 grams 0RF shortness of breath or wheezing J45.20 - Mild intermittent asthma, uncomplicated azithromycin (Zithromax) For 250 mg dose pack: take 500 mg today (day 1), then 250 mg for 4 days (days 2-5) PO 6 tabs 0RF J45.20 - Mild intermittent asthma, uncomplicated Coding Level of Care Code Tele Est Pt Level 3 (93486) Diagnoses Asthma exacerbation J45.901 Additional Codes PHQ-9 - 06130 - PHQ-9 Billing: ([phone])
== END 2023-07-11 09:30 | disposition home or self-care (01) ==
PROVIDERS: PCP Internal Medicine; Visit Provider Internal Medicine
DX: J45.901 Unspecified asthma with (acute) exacerbation (principal)
CPT/HCPCS: 99213

== ENCOUNTER 2023-08-03 14:48 | Outpatient (AMB) | payer OTHER, SELFPAY ==
[2023-08-03 14:55] VITALS: BP 136/70; PULSE 64; O2SAT 100; BMI 33.3
--- NOTE | 2023-08-03 14:55 | MHC.PC.OV ---
Vital Signs 08/03/23 14:55 Height 5 ft 2.5 in Weight 185 lb BMI 33.3 BP 136/70 Blood Pressure Location Lt brachial Position Sitting Pulse 64 Pulse Source Pulse Oximeter Pulse Oximetry (%) 100 Oxygen Delivery Method Room Air Intake Visit Reasons: [facility] follow up/High BP Intake Note: Patient is here to follow-up after a visit the emergency department at [facility] on 08/01/2023 Allergies latex [LATEX] Allergy (Unknown, Verified 08/03/23 14:56) ANAPHYLAXIS fruits Allergy (Unknown, Uncoded 08/03/23 14:56) itchy throat Medication List - Last Reconciled 08/03/23 by Felipe Perry MD albuterol sulfate 0.63 mg (3 mL) inhalation QID PRN albuterol sulfate 90 mcg/actuation (Ventolin HFA) 2 puffs inhalation Q6H PRN aspirin (Adult Low Dose Aspirin) 81 mg PO DAILY cyanocobalamin (vitamin B-12) 1,000 mcg PO DAILY epinephrine 0.3 mg (0.3 mL) IM Q10M PRN fluticasone propionate 110 mcg/actuation 2 puffs inhalation Q12H inhalational spacing device (BreatheRite Valved MDI Spacer) As directed latanoprost 0.005% 1 drp ophthalmic (eye) DAILY levothyroxine 75 mcg PO DAILY 90 days lisinopril 40 mg PO DAILY 90 days lorazepam 0.5 mg PO BEDTIME PRN 15 days nebulizers (AeroEclipse II Nebulizer) As directed Tobacco use date assessed: 07/11/23 Fall risk assessment: No Falls in past year Last assessed Fall Risk: 08/03/23 Dental Screening Dental Screen Date: 08/03/23 Did you have a dental visit in the last 12 months?: Yes Did you have a dental problem in the last 6 months where you did not have access to dental care?: No Was dental information given to patient?: Patient has dentist HPI [facility] follow up/High BP HPI Details 67-year-old obese female with hypertension, hypercholesterolemia hypothyroidism asthma generalized anxiety disorder coming in for follow-up. The patient was last seen in 07/11/2023. Patient's mammogram is up-to-date.. came in with a list BP 156-199/83 to 94 PFSH Medical History (Updated 03/09/23 @ 09:44 by Felipe Perry MD) Laboratory exam ordered as part of routine general medical examination Bronchitis SOB (shortness of breath) Hypertension COVID-19 Allergic rhinitis Asthma Anxiety Hypothyroid Hypercholesterolemia Obesity (BMI 30.0-34.9) Surgical History Cornea replaced by transplant History of trigger finger Status post corneal transplant History of section Family History (Updated 03/09/23 @ 09:02 by Laura Young [facility]) Father Aneurysm CVA (cerebral vascular accident) Mother Hypertension Paternal Grandfather Brain aneurysm Social History Housing: House Alcohol intake: never Patient Tobacco Use Status: Never used Tobacco e-Cigarette/Vaping Use: Never Used Second Hand Smoke Exposure: No service: Yes Current occupational status: employed 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 1. Little interest or pleasure in doing things: not at all 2. Feeling down, depressed, or hopeless: not at all 3. Trouble falling or staying asleep, or sleeping too much: not at all 4. Feeling tired or having little energy: not at all 5. Poor appetite or overeating: not at all 6. Feeling bad about yourself - or that you are a failure or have let yourself or your family down: not at all 7. Trouble concentrating on things, such as reading the newspaper or watching television: not at all 8. Moving or speaking so slowly that other people could have noticed. Or the opposite - being so fidgety or restless that you have been moving around a lot more than usual: not at all 9. Thoughts that you would be better off or of hurting yourself in some way: not at all Total score: 0 Depression Screening Interpretation: Negative Depression Screening Done: Yes Source: Developed by Drs. Humberto Fisher, Breann Wing, Linus Mar and colleagues, with an educational everardo from [employer]. Thrive Questionnaire Date Thrive assessed: 07/11/23 AUDIT C Alcohol Use Questionnaire (AUDIT-C) 1. How often do you have a drink containing alcohol?: Never 3. How often do you have six or more drinks on one occasion?: Never Total Score: 0 Score Reviewed/Action Taken: No MURPHY-7 AMB Questionnaire MURPHY-7 Date MURPHY - 7 assessed: 07/11/23 Source: Developed by Drs. Humberto Fsiher, Breann Wing, Linus Mar and colleagues, with an educational everardo from [employer]. Physical exam (Primary Care) Vital Signs: Last Vital Signs Pulse 64 08/03/23 14:55 BP 136/70 08/03/23 14:55 Pulse Ox 100 08/03/23 14:55 Oxygen Delivery Method Room Air 08/03/23 14:55 BMI result Body Mass Index 33.3 Tobacco/Smoking Status: Tobacco use Status Tobacco use date assessed 07/11/23 08/03/23 14:57 Patient Tobacco Use Status Never used Tobacco 08/03/23 14:57 e-Cigarette/Vaping Use Never Used 08/03/23 14:57 PHQ-9: PHQ-9 Score PHQ-9: Total score 0 08/03/23 15:00 Depression Screening Interpretation: Negative Thrive Assessment: Date of Thrive Assessment Date Thrive assessed 07/11/23 08/03/23 14:57 Const General: alert; No acute distress Eyes Conjunctivae: conjunctivae normal Resp Auscultation: clear to auscultation bilaterally Cardio Rate: regular rate Rhythm: regular rhythm GI Inspection: Yes normal to inspection Extrem General: Yes normal to inspection and No edema Assessment and Plan Assessment & Plan (1) Hypertension: Code(s): I10 - Essential (primary) hypertension Qualifiers: Hypertension type: essential hypertension Qualified Code(s): I10 - Essential (primary) hypertension Plan: Continue with blood pressure medication. Decrease salt intake and exercise patient is on chlorthalidone 25 mg once a day lisinopril 20 mg once a day (2) Hypercholesterolemia: Code(s): E78.00 - Pure hypercholesterolemia, unspecified Plan: Avoid fried foods, chicken skin, eggs, butter margarine, pastries and meat. Be it pork or beef they have a lot of cholesterol October 2022 last blood work LDL goal of less than 130 and triglyceride of less than 150. (3) Hypothyroid: Code(s): E03.9 - Hypothyroidism, unspecified Qualifiers: Hypothyroidism type: acquired Qualified Code(s): E03.9 - Hypothyroidism, unspecified Plan: Continue with thyroid medication (4) Asthma: Code(s): J45.909 - Unspecified asthma, uncomplicated Qualifiers: Asthma complication type: uncomplicated Asthma persistence: intermittent Asthma severity: mild Qualified Code(s): J45.20 - Mild intermittent asthma, uncomplicated Plan: Continue with inhaler albuterol (5) Generalized anxiety disorder: Code(s): F41.1 - Generalized anxiety disorder Plan: Continue with present medication. Orders: Orders Complete Blood Count Auto Diff 3 Months E78.00 - Pure hypercholesterolemia, unspecified Comprehensive Met. Panel 3 Months E78.00 - Pure hypercholesterolemia, unspecified Lipid Panel 3 Months E78.00 - Pure hypercholesterolemia, unspecified Thyroid Stimulating Hormone 3 Months E78.00 - Pure hypercholesterolemia, unspecified Vitamin B12 and Folate 3 Months E78.00 - Pure hypercholesterolemia, unspecified Vitamin D 25-OH Total 3 Months E78.00 - Pure hypercholesterolemia, unspecified Free T4 (Free Thyroxine) 3 Months E78.00 - Pure hypercholesterolemia, unspecified Medications: Changed From lisinopril 20 mg PO DAILY 90 days 90 tabs 2RF I10 - Essential (primary) hypertension To lisinopril 40 mg PO DAILY 90 days 90 tabs 2RF I10 - Essential (primary) hypertension From fluticasone propionate 110 mcg/actuation administer with spacer 1 puff inhalation Q12H 12 grams 0RF J45.20 - Mild intermittent asthma, uncomplicated To fluticasone propionate 110 mcg/actuation administer with spacer 2 puffs inhalation Q12H 12 grams 0RF J45.20 - Mild intermittent asthma, uncomplicated Refilled lisinopril 40 mg PO DAILY 90 days 90 tabs 2RF I10 - Essential (primary) hypertension Discontinued albuterol sulfate 90 mcg/actuation (ProAir HFA) Discontinued Reason: Duplicate 2 puffs inhalation Q4-6H PRN 8.5 grams 0RF shortness of breath or wheezing J45.20 - Mild intermittent asthma, uncomplicated Coding Level of Care Code Est Pt Level 4 (73209) Diagnoses Essential hypertension I10 Hypertension type: essential hypertension Hypercholesterolemia E78.00 Acquired hypothyroidism E03.9 Hypothyroidism type: acquired Mild intermittent asthma without complication J45.20 Asthma complication type: uncomplicated Asthma persistence: intermittent Asthma severity: mild Generalized anxiety disorder F41.1 Additional Codes PHQ-9 - 16602 - PHQ-9 Billing: ([id number])
== END 2023-08-03 15:40 | disposition home or self-care (01) ==
PROVIDERS: PCP Internal Medicine; Visit Provider Internal Medicine
DX: I10 Essential (primary) hypertension (principal); E78.00 Pure hypercholesterolemia, unspecified; E03.9 Hypothyroidism, unspecified; J45.20 Mild intermittent asthma, uncomplicated; F41.1 Generalized anxiety disorder
CPT/HCPCS: 99214

== ENCOUNTER 2023-11-07 09:15 | Outpatient (REF) | payer OTHER, SELFPAY ==
[2023-11-07 09:41] LABS: MANUAL DIFF FLAG NO
[2023-11-07 10:13] LABS: Basophils Absolute Auto 0.1 X10*3/uL (0.0-0.2); Basophils Percent Auto 0.9 % (0-2); Eosinophils Absolute Auto 0.5 X10*3/uL (0.0-0.4); Eosinophils Percent Auto 5.5 % (0-4); Hematocrit 45.6 % (37.0-47.0); Hemoglobin 15.4 g/dl (12.0-16.0); Imm Gran Abs Auto 0.03 X10*3/uL (0.00-0.03); Imm Gran Pct Auto 0.4 % (0.0-0.4); Lymphocytes Absolute Auto 2.5 X10*3/uL (1.2-4.9); Mean Corpuscular HGB Conc 33.8 g/dl (31.0-35.0); Mean Corpuscular Hemoglobin 30.9 pg (27.0-33.0); Mean Corpuscular Volume 91.4 fL (80.0-98.0); Mean Platelet Volume 8.9 fL (9.4-12.3); Monocytes Absolute Auto 0.7 X10*3/uL (0.1-1.2); Neutrophils Absolute Auto 4.8 x10*3/uL (2.0-8.3); Neutrophils Percent Auto 56.2 % (45-73); Platelet Count 362 X10*3/uL (160-400); Red Blood Count 4.99 X10*6/uL (4.20-5.50); Red Cell Distribution Width 12.1 % (11.0-16.0); White Blood Count 8.5 X10*3/uL (4.8-10.8)
[2023-11-07 11:06] LABS: Alanine Aminotransferase 53 U/L (0-31); Albumin Level 4.1 g/dL (3.5-5.0); Alkaline Phosphatase 64 U/L (39-117); Anion Gap 16 (12-20); Aspartate Amino Transferase 39 U/L (5-31); Bilirubin Total 0.9 mg/dL (0.0-1.0); Blood Urea Nitrogen 17 mg/dL (9-16); Carbon Dioxide 28 mmol/L (22-29); Chloride 103 mmol/L (96-108); Cholesterol 199 mg/dL (<200); Estimated Glomerular Filt Rate > 60; Glucose Random 110 mg/dL (60-115); HDL Cholesterol 46 mg/dL (>40); LDL Cholesterol Calculated 135 mg/dL (<100); Potassium 5.1 mmol/L (3.3-5.1); Sodium 142 mmol/L (135-145); Total Protein 7.8 g/dL (6.5-8.0); Triglycerides 92 mg/dL (<150)
[2023-11-07 11:10] LABS: Free T4 (Free Thyroxine) 1.04 ng/dL (0.71-1.85); Thyroid Stimulating Hormone 1.75 uIU/mL (0.32-4.0); Vitamin D 25-OH Total 28.1 ng/mL (>30)
[2023-11-07 11:21] LABS: Folate 12.8 ng/mL (> or = 4.0); Vitamin B12 574 pg/mL (200-900)
== END 2023-11-07 09:16 | disposition home or self-care (01) ==
LOC: HO.LAB 09:15
PROVIDERS: PCP Internal Medicine; Visit Provider Internal Medicine
DX: E78.00 Pure hypercholesterolemia, unspecified (principal); E03.9 Hypothyroidism, unspecified
CPT/HCPCS: 36415; 80053; 80061; 82306; 82607; 82746; 84439; 84443; 85025

== ENCOUNTER 2023-11-08 13:31 | Outpatient (AMB) | payer OTHER, SELFPAY ==
--- NOTE | 2023-11-08 13:42 | A.OFFPC_ITS ---
Vital Signs 11/08/23 13:43 Height 5 ft 2.5 in Weight 189 lb BMI 34.0 BP 124/76 Blood Pressure Location Lt brachial Position Sitting Pulse 75 Pulse Source Pulse Oximeter Pulse Oximetry (%) 98 Oxygen Delivery Method Room Air Intake Visit Reasons: Annual Exam/ PAP SMEAR Allergies latex [LATEX] Allergy (Unknown, Verified 11/08/23 13:44) ANAPHYLAXIS fruits Allergy (Unknown, Uncoded 11/08/23 13:44) itchy throat Medication List - Last Reconciled 11/08/23 by Felipe Perry MD albuterol sulfate 0.63 mg (3 mL) inhalation QID PRN albuterol sulfate 90 mcg/actuation (Ventolin HFA) 2 puffs inhalation Q6H PRN aspirin (Adult Low Dose Aspirin) 81 mg PO DAILY epinephrine 0.3 mg (0.3 mL) IM Q10M PRN fluticasone propionate 110 mcg/actuation 2 puffs inhalation Q12H inhalational spacing device (BreatheRite Valved MDI Spacer) As directed latanoprost 0.005% 1 drp ophthalmic (eye) DAILY levothyroxine 75 mcg PO DAILY 90 days lisinopril 40 mg PO DAILY 90 days loratadine 10 mg PO DAILY lorazepam 0.5 mg PO BEDTIME PRN 15 days nebulizers (AeroEclipse II Nebulizer) As directed omeprazole 20 mg PO DAILY Tobacco use date assessed: 07/11/23 Dental Screening Dental Screen Date: 08/03/23 HPI Annual Exam/ PAP SMEAR HPI Details 68-year-old obese female with hypertensi on hypercholesterolemia hypothyroidism asthma and generalized anxiety disorder coming in for physical exam. Patient's mammogram is up-to-date 11/16/2022. [facility] Medical History (Updated 11/08/23 @ 14:35 by Felipe Perry MD) Laboratory exam ordered as part of routine general medical examination Bronchitis SOB (shortness of breath) Hypertension COVID-19 Allergic rhinitis Asthma Anxiety Hypothyroid Hypercholesterolemia Obesity (BMI 30.0-34.9) Surgical History Cornea replaced by transplant History of trigger finger Status post corneal transplant History of section Family History (Updated 03/09/23 @ 09:02 by Laura Young CMA) Father Aneurysm CVA (cerebral vascular accident) Mother Hypertension Paternal Grandfather Brain aneurysm Social History (Updated 11/08/23 @ 14:11 by Felipe Perry MD) Housing: House Alcohol intake: current Alcohol intake frequency: does not drink Comment: once a year 2 drinks Patient Tobacco Use Status: Never used Tobacco e-Cigarette/Vaping Use: Never Used Second Hand Smoke Exposure: No service: Yes Current occupational status: employed 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 1. Little interest or pleasure in doing things: not at all 2. Feeling down, depressed, or hopeless: not at all 3. Trouble falling or staying asleep, or sleeping too much: not at all 4. Feeling tired or having little energy: not at all 5. Poor appetite or overeating: not at all 6. Feeling bad about yourself - or that you are a failure or have let yourself or your family down: not at all 7. Trouble concentrating on things, such as reading the newspaper or watching television: not at all 8. Moving or speaking so slowly that other people could have noticed. Or the opposite - being so fidgety or restless that you have been moving around a lot more than usual: not at all 9. Thoughts that you would be better off or of hurting yourself in some way: not at all Total score: 0 Depression Screening Interpretation: Negative Depression Screening Done: Yes Source: Developed by Drs. Humberto Fisher, Breann Wing, Linus Mar and colleagues, with an educational everardo from [employer]. Thrive Questionnaire Date Thrive assessed: 07/11/23 AUDIT C Alcohol Use Questionnaire (AUDIT-C) 1. How often do you have a drink containing alcohol?: Never 3. How often do you have six or more drinks on one occasion?: Never Total Score: 0 Score Reviewed/Action Taken: No MURPHY-7 AMB Questionnaire MURPHY-7 Date MURPHY - 7 assessed: 11/08/23 Feeling nervous, anxious, or on edge: 0 = Not at all Not being able to stop or control worryin = Not at all Worrying too much about different things: 0 = Not at all Trouble relaxin = Not at all Being so restless that it is hard to sit still: 0 = Not at all Becoming easily annoyed or irritable: 0 = Not at all Feeling afraid as if something awful might happen: 0 = Not at all Total MURPHY-7 score (0-4 normal; 5-9 mild; 10-14 moderate; 15-21 severe): 0 Source: Developed by Drs. Humberto Fisher, Breann Wing, Linus Mar and colleagues, with an educational everardo from [employer]. Review of Systems Const Denies poor appetite and Denies weakness Eyes Denies no additional complaints ENT Reports Normal hearing present, Denies dizziness, Denies nasal congestion, Denies tinnitus and Denies sore throat Card Denies chest pain, Denies syncope, Denies rapid heart rate and Denies dyspnea Resp Denies cough and Denies dyspnea GI Denies change in stool character, Reports constipation, Denies diarrhea, Denies nausea and Denies vomiting Denies urinary frequency, Denies difficulty voiding and Denies dysuria Neuro Reports Normal hearing present, Denies confusion, Denies dizziness, Denies syncope and Denies weakness Psych Denies confusion Physical exam (Primary Care) Vital Signs: Last Vital Signs Pulse 75 11/08/23 13:43 BP 124/76 11/08/23 13:43 Pulse Ox 98 11/08/23 13:43 Oxygen Delivery Method Room Air 11/08/23 13:43 BMI result Body Mass Index 34.0 Tobacco/Smoking Status: Tobacco use Status Tobacco use date assessed 07/11/23 11/08/23 13:46 Patient Tobacco Use Status Never used Tobacco 11/08/23 13:46 e-Cigarette/Vaping Use Never Used 11/08/23 13:46 PHQ-9: PHQ-9 Score PHQ-9: Total score 0 11/08/23 13:51 Depression Screening Interpretation: Negative Thrive Assessment: Date of Thrive Assessment Date Thrive assessed 07/11/23 11/08/23 13:46 Const General: No confusion Orientation/consciousness: No confusion Other: Guaiac negative stools External Female Exam: normal external appearance Speculum Exam - Vagina: normal appearance of the vagina Speculum Exam - Cervix: normal appearance of the cervix and Cervical os closed Bimanual exam- vagina & uterus: normal bimanual exam Bimanual Exam- Adnexa, other: normal adnexae Neuro General: No confusion Cranial nerves: Yes Normal hearing present Assessment and Plan Assessment & Plan (1) Annual physical exam: Code(s): Z00.00 - Encounter for general adult medical examination without abnormal fi ndings Plan: Patient is advised to eat healthy, keep well hydrated, keep active and have adequate sleep. (2) Generalized anxiety disorder: Code(s): F41.1 - Generalized anxiety disorder Plan: Patient takes lorazepam as needed (3) Hypertension: Code(s): I10 - Essential (primary) hypertension Qualifiers: Hypertension type: essential hypertension Qualified Code(s): I10 - Essential (primary) hypertension Plan: Continue with blood pressure medication. Decrease salt intake and exercise on lisinopril 40 mg once a day (4) Hypercholesterolemia: Code(s): E78.00 - Pure hypercholesterolemia, unspecified Plan: Avoid fried foods, chicken skin, eggs, butter margarine, pastries and meat. Be it pork or beef they have a lot of cholesterol LDL goal of less than 130 and triglyceride of less than 150 (5) Hypothyroid: Code(s): E03.9 - Hypothyroidism, unspecified Qualifiers: Hypothyroidism type: acquired Qualified Code(s): E03.9 - Hypothyroid ism, unspecified Plan: Continue with thyroid medication (6) Moderate persistent asthma: Code(s): J45.40 - Moderate persistent asthma, uncomplicated Plan: Continue with the inhaler albuterol/Ventolin (7) Colon cancer screening: Comment: Colonoscopy refused Code(s): Z12.11 - Encounter for screening for malignant neoplasm of colon (8) Cervical cancer screening: Code(s): Z12.4 - Encounter for screening for malignant neoplasm of cervix (9) Hearing difficulty: Code(s): H91.90 - Unspecified hearing loss, unspecified ear (10) Impaired fasting blood sugar: Code(s): R73.01 - Impaired fasting glucose Orders: Orders HPV E6/E7 RFLX DARIUS 16 18/45 Today Z12.4 - Encounter for screening for malignant neoplasm of cervix CT NG by PCR Today Z12.4 - Encounter for screening for malignant neoplasm of cervix Lipid Panel 6 Months E78.00 - Pure hypercholesterolemia, unspecified Pap Smear Today Z12.4 - Encounter for screening for malignant neoplasm of cervix Bacterial Vaginosis Panel Today Z12.4 - Encounter for screening for malignant neoplasm of cervix Comprehensive Met. Panel 6 Months R73.01 - Impaired fasting glucose Hemoglobin A1c 6 Months R73.01 - Impaired fasting glucose Thyroid Stimulating Hormone 6 Months E78.00 - Pure hypercholesterolemia, unspecified Free T4 (Free Thyroxine) Today E78.00 - Pure hypercholesterolemia, unspecified Referrals Speech and Hearing Referral H91.90 - Unspecified hearing loss, unspecified ear Medications: New loratadine 10 mg PO DAILY 90 tabs 3RF Refilled levothyroxine 75 mcg PO DAILY 90 days 90 tabs 0RF E03.9 - Hypothyroidism, unspecified albuterol sulfate 90 mcg/actuation (Ventolin HFA) 2 puffs inhalation Q6H PRN 8.5 grams 0RF shortness of breath or wheezing J45.20 - Mild intermittent asthma, uncomplicated Coding Level of Care Code Est Pt Prev Care >65y(93655) Diagnoses Annual physical exam Z00.00 Generalized anxiety disorder F41.1 Essential hypertension I10 Hypertension type: essential hypertension Hypercholesterolemia E78.00 Acquired hypothyroidism E03.9 Hypothyroidism type: acquired Moderate persistent asthma J45.40 Colon cancer screening Z12.11 Cervical cancer screening Z12.4 Hearing difficulty H91.90 Impaired fasting blood sugar R73.01 Additional Codes PHQ-9 - 80071 - PHQ-9 Billing: ([id number])
[2023-11-08 13:43] VITALS: BP 124/76; PULSE 75; O2SAT 98; BMI 34.0
== END 2023-11-08 14:41 | disposition home or self-care (01) ==
PROVIDERS: PCP Internal Medicine; Visit Provider Internal Medicine
DX: Z00.00 Encounter for general adult medical examination without abnormal findings (principal); F41.1 Generalized anxiety disorder; I10 Essential (primary) hypertension; E78.00 Pure hypercholesterolemia, unspecified; E03.9 Hypothyroidism, unspecified; J45.40 Moderate persistent asthma, uncomplicated; Z12.11 Encounter for screening for malignant neoplasm of colon; R73.01 Impaired fasting glucose
CPT/HCPCS: 99397

== ENCOUNTER 2023-11-08 15:03 | Outpatient (REF) | payer OTHER, SELFPAY ==
[2023-11-09 03:37] LABS: CT PCR NOT DETECTED (Not Detect.); NG PCR NOT DETECTED (Not Detect.)
[2023-11-09 10:47] LABS: Bacterial Vaginosis PCR NEGATIVE (Negative); Candida Group PCR NOT DETECTED (Not Detect); Candida glab krusei PCR NOT DETECTED (Not Detect); Trichomonas vaginalis PCR NOT DETECTED (Not Detect)
[2023-11-11 03:49] LABS: HPV mRNA E6/E7 rflx Not Detected (Not Detected)
== END 2023-11-08 15:04 | disposition home or self-care (01) ==
LOC: HO.LAB 15:03
PROVIDERS: Visit Provider Internal Medicine
DX: Z12.4 Encounter for screening for malignant neoplasm of cervix (principal)
CPT/HCPCS: 0352U; 0353U; 87624

== ENCOUNTER 2023-11-08 15:03 | Outpatient (REF) | payer OTHER, SELFPAY | END 2023-11-08 15:04 | disposition home or self-care (01) | LOC: HO.LNP 15:03 | PROVIDERS: Visit Provider Internal Medicine | DX: Z01.419 Encounter for gynecological examination (general) (routine) without abnormal findings (principal) | CPT/HCPCS: 88142 ==

== ENCOUNTER 2024-03-06 16:00 | Outpatient (AMB) | payer OTHER, SELFPAY ==
--- NOTE | 2024-03-06 16:00 | MHC.PC.OV ---
Intake Visit Reasons: Requesting Antibiotics Intake Note: Patient is here to follow up on Bronchitis . Electrical Prospecting Supervisor Required: No Bilingual Receptionist: Not Required per policy Accompanied by: Self / Same As Patient Allergies latex [LATEX] Allergy (Unknown, Verified 03/06/24 16:02) ANAPHYLAXIS fruits Allergy (Unknown, Uncoded 03/06/24 16:02) itchy throat Medication List - Last Reconciled 03/06/24 by Felipe Perry MD albuterol sulfate 0.63 mg (3 mL) inhalation QID PRN albuterol sulfate 90 mcg/actuation (Ventolin HFA) 2 puffs inhalation Q6H PRN aspirin (Adult Low Dose Aspirin) 81 mg PO DAILY azithromycin (Zithromax) For 250 mg dose pack: take 500 mg today (day 1), then 250 mg for 4 days (days 2-5) PO epinephrine 0.3 mg (0.3 mL) IM Q10M PRN fluticasone propionate 110 mcg/actuation 2 puffs inhalation Q12H inhalational spacing device (BreatheRite Valved MDI Spacer) As directed latanoprost 0.005% 1 drp ophthalmic (eye) DAILY levothyroxine 75 mcg PO DAILY 90 days lisinopril 40 mg PO DAILY 90 days loratadine 10 mg PO DAILY lorazepam 0.5 mg PO BID PRN 30 days nebulizers (AeroEclipse II Nebulizer) As directed omeprazole 20 mg PO DAILY Tobacco use date assessed: 03/06/24 Fall risk assessment: No Falls in past year Last assessed Fall Risk: 03/06/24 Dental Screening Dental Screen Date: 08/03/23 HPI Requesting Antibiotics HPI Details 68-year-old obese female with generalized anxiety disorder hypertension hypercholesterolemia hypothyroidism asthma impaired glucose tolerance calling in through Telehealth. Last seen in 11/17/2023.chest tightness and wheezing 3 days, no fevers, cough, no sore throat, patient is going for a cruise [facility] Medical History (Updated 11/08/23 @ 14:35 by Felipe Perry MD) Laboratory exam ordered as part of routine general medical examination Bronchitis SOB (shortness of breath) Hypertension COVID-19 Allergic rhinitis Asthma Anxiety Hypothyroid Hypercholesterolemia Obesity (BMI 30.0-34.9) Surgical History Cornea replaced by transplant History of trigger finger Status post corneal transplant History of section Family History Father Aneurysm CVA (cerebral vascular accident) Mother Hypertension Paternal Grandfather Brain aneurysm Social History Housing: House Alcohol intake: current Alcohol intake frequency: does not drink Comment: once a year 2 drinks Patient Tobacco Use Status: Never used Tobacco e-Cigarette/Vaping Use: Never Used Second Hand Smoke Exposure: No service: Yes Current occupational status: employed 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 Humberto Fisher, Breann Wing, Linus Mar and colleagues, with an educational everardo from [employer]. Physical exam (Primary Care) Tobacco/Smoking Status: Tobacco use Status Tobacco use date assessed 03/06/24 03/06/24 16:03 Patient Tobacco Use Status Never used Tobacco 03/06/24 16:03 e-Cigarette/Vaping Use Never Used 03/06/24 16:03 Thrive Assessment: Date of Thrive Assessment Date Thrive assessed 07/11/23 03/06/24 16:03 Telehealth Telehealth Telehealth Platform: Telephone Location of provider rendering services: practice address Location of patient: address on file Patient Identification confirmed using: Name, : Yes Telehealth method: voice only Patient verbally consented to treatment: Yes Patient verbally consented to billing insurance company: Yes Patient informed of any privacy concerns related to visit: Yes Minutes spent on Phone/Video with Pt.: 15 Coding Level of Care Code Tele Est Pt Level 3 (72907) Diagnoses Moderate persistent asthma J45.40 Generalized anxiety disorder F41.1 Assessment & Plan Assessment & Plan (1) Moderate persistent asthma: Code(s): J45.40 - Moderate persistent asthma, uncomplicated Category: Medical Plan: Patient has the albuterol inhaler as needed. Patient is going on a trip and would like to have the antibiotic Handy. Zithromax prescription sent in. (2) Generalized anxiety disorder: Code(s): F41.1 - Generalized anxiety disorder Category: Medical Plan: Anxiety medication sent in for the trip. Medications: New azithromycin (Zithromax) For 250 mg dose pack: take 500 mg today (day 1), then 250 mg for 4 days (days 2-5) PO 6 tabs 0RF Changed From lorazepam 0.5 mg PO BEDTIME 15 days PRN 15 tabs 0RF anxiety F41.1 - Generalized anxiety disorder To lorazepam 0.5 mg PO BID 30 days PRN 25 tabs 0RF anxiety F41.1 - Generalized anxiety disorder
== END 2024-03-06 17:28 | disposition home or self-care (01) ==
LOC: HO.HMCH 16:00
PROVIDERS: PCP Internal Medicine; Visit Provider Internal Medicine
DX: J45.40 Moderate persistent asthma, uncomplicated (principal); F41.1 Generalized anxiety disorder

== ENCOUNTER → 2024-03-06 16:00 | Outpatient (BNVA) | payer OTHER, SELFPAY | PROVIDERS: PCP Internal Medicine; Visit Provider Internal Medicine ==

== ENCOUNTER 2024-04-04 11:14 | Outpatient (AMB) | payer OTHER, SELFPAY ==
[2024-04-04 11:21] VITALS: BP 138/78; PULSE 78; O2SAT 95; BMI 33.7
--- NOTE | 2024-04-04 11:21 | MHC.PC.OV ---
Vital Signs 04/04/24 11:21 Height 5 ft 2.5 in Weight 187 lb BMI 33.7 BP 138/78 Blood Pressure Location Lt brachial Position Sitting Pulse 78 Pulse Source Pulse Oximeter Pulse Oximetry (%) 95 Oxygen Delivery Method Room Air Intake Visit Reasons: back pain radiating down the LT leg Allergies latex [LATEX] Allergy (Unknown, Verified 04/04/24 11:22) ANAPHYLAXIS fruits Allergy (Unknown, Uncoded 04/04/24 11:22) itchy throat Tobacco use date assessed: 03/06/24 Fall risk assessment: No Falls in past year Last assessed Fall Risk: 04/04/24 Dental Screening Dental Screen Date: 08/03/23 HPI back pain radiating down the LT leg HPI Details 68-year-old obese female with hypertension hypercholesterolemia, impaired glucose tolerance hypothyroidism generalized anxiety disorder asthma coming in for follow-up. Last seen for asthma exacerbation in 03/06/2024. Patient is due for mammogram. last night had L leg cramp then pain on the left lateral ,leg to the L hip denies any a fall or trauma and patient also complains of low back pain patient also needed refills on the blood pressure medication as well as a thyroid medication. [facility] Medical History (Updated 04/04/24 @ 11:57 by Felipe Perry MD) Laboratory exam ordered as part of routine general medical examination Bronchitis SOB (shortness of breath) Hypertension COVID-19 Allergic rhinitis Asthma Anxiety Hypothyroid Hypercholesterolemia Obesity (BMI 30.0-34.9) Surgical History Cornea replaced by transplant History of trigger finger Status post corneal transplant History of section Family History Father Aneurysm CVA (cerebral vascular accident) Mother Hypertension Paternal Grandfather Brain aneurysm Social History Housing: House Alcohol intake: current Alcohol intake frequency: does not drink Comment: once a year 2 drinks Patient Tobacco Use Status: Never used Tobacco e-Cigarette/Vaping Use: Never Used Second Hand Smoke Exposure: No service: Yes Current occupational status: employed 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 1. Little interest or pleasure in doing things: not at all 2. Feeling down, depressed, or hopeless: not at all 3. Trouble falling or staying asleep, or sleeping too much: not at all 4. Feeling tired or having little energy: not at all 5. Poor appetite or overeating: not at all 6. Feeling bad about yourself - or that you are a failure or have let yourself or your family down: not at all 7. Trouble concentrating on things, such as reading the newspaper or watching television: not at all 8. Moving or speaking so slowly that other people could have noticed. Or the opposite - being so fidgety or restless that you have been moving around a lot more than usual: not at all 9. Thoughts that you would be better off or of hurting yourself in some way: not at all Total score: 0 Depression Screening Interpretation: Negative Depression Screening Done: Yes Source: Developed by Drs. Humberto Fisher, Breann Wing, Linus Mar and colleagues, with an educational everardo from [employer]. Thrive Questionnaire Date Thrive assessed: 07/11/23 AUDIT C Alcohol Use Questionnaire (AUDIT-C) 1. How often do you have a drink containing alcohol?: Never 3. How often do you have six or more drinks on one occasion?: Never Total Score: 0 Score Reviewed/Action Taken: No MURPHY-7 AMB Questionnaire MURPHY-7 Date MURPHY - 7 assessed: 11/08/23 Source: Developed by Drs. Humberto Fisher, Breann Wing, Linus Mar and colleagues, with an educational everardo from [employer]. Physical exam (Primary Care) Vital Signs: Last Vital Signs Pulse 78 04/04/24 11:21 BP 138/78 04/04/24 11:21 Pulse Ox 95 04/04/24 11:21 Oxygen Delivery Method Room Air 04/04/24 11:21 BMI result Body Mass Index 33.7 Tobacco/Smoking Status: Tobacco use Status Tobacco use date assessed 03/06/24 04/04/24 11:23 Patient Tobacco Use Status Never used Tobacco 04/04/24 11:23 e-Cigarette/Vaping Use Never Used 04/04/24 11:23 PHQ-9: PHQ-9 Score PHQ-9: Total score 0 04/04/24 11:40 Depression Screening Interpretation: Negative Thrive Assessment: Date of Thrive Assessment Date Thrive assessed 07/11/23 04/04/24 11:23 Const General: alert; No acute distress Eyes Conjunctivae: conjunctivae normal Resp Auscultation: clear to auscultation bilaterally Cardio Rate: regular rate Rhythm: regular rhythm GI Inspection: Yes normal to inspection Extrem General: Yes normal to inspection and No edema Coding Level of Care Code Est Pt Level 4 (45398) Diagnoses Essential hypertension I10 Hypertension type: essential hypertension Hypercholesterolemia E78.00 Acquired hypothyroidism E03.9 Hypothyroidism type: acquired Screening for osteoporosis Z13.820 Leg pain, left M79.605 Acute midline low back pain without sciatica M54.50 Chronicity: acute Back pain laterality: midline Sciatica presence: without sciatica Assessment & Plan Assessment & Plan (1) Hypertension: Code(s): I10 - Essential (primary) hypertension Category: Medical Qualifiers: Hypertension type: essential hypertension Qualified Code(s): I10 - Essential (primary) hypertension Plan: Continue with blood pressure medication. Decrease salt intake and exercise on lisinopril 40 mg once a day (2) Hypercholesterolemia: Code(s): E78.00 - Pure hypercholesterolemia, unspecified Category: Medical Plan: Avoid fried foods, chicken skin, eggs, butter margarine, pastries and meat. Be it pork or beef they have a lot of cholesterol LDL goal of less than 130 and triglyceride of less than 150. Last blood work was in 11/17/2023. (3) Hypothyroid: Code(s): E03.9 - Hypothyroidism, unspecified Category: Medical Qualifiers: Hypothyroidism type: acquired Qualified Code(s): E03.9 - Hypothyroidism, unspecified Plan: Continue with thyroid medication 11/17/2023 last blood work. (4) Screening for osteoporosis: Code(s): Z13.820 - Encounter for screening for osteoporosis Category: Medical Plan: Bone density requested. (5) Leg pain, left: Code(s): M79.605 - Pain in left leg Category: Medical Plan: Discussed about physical therapy heat and pain medication. (6) Low back pain: Code(s): M54.50 - Low back pain, unspecified Category: Medical Qualifiers: Chronicity: acute Back pain laterality: midline Sciatica presence: without sciatica Qualified Code(s): M54.50 - Low back pain, unspecified Plan: Discussed about physical therapy, heat and pain medication. Orders: Orders XR DEXA axial skeleton Today M81.0 - Age-related osteoporosis without current pathological fracture, Z13.820 - Encounter for screening for osteoporosis Medications: New cyclobenzaprine 10 mg PO TID PRN 30 tabs 0RF muscle spasm M79.605 - Pain in left leg lidocaine 5% leave on most painful area for up to 12 hrs 1 patch topical DAILY 30 ea 0RF M54.50 - Low back pain, unspecified naproxen (Naprosyn) 500 mg PO BID PRN 60 tabs 0RF pain M79.605 - Pain in left leg Refilled loratadine 10 mg PO DAILY 90 tabs 3RF Z13.820 - Encounter for screening for osteoporosis lisinopril 40 mg PO DAILY 90 days 90 tabs 2RF I10 - Essential (primary) hypertension levothyroxine 75 mcg PO DAILY 90 days 90 tabs 2RF E03.9 - Hypothyroidism, unspecified
== END 2024-04-04 12:07 | disposition home or self-care (01) ==
LOC: HO.HMCH 11:15
PROVIDERS: PCP Internal Medicine; Visit Provider Internal Medicine
DX: I10 Essential (primary) hypertension (principal); E78.00 Pure hypercholesterolemia, unspecified; E03.9 Hypothyroidism, unspecified; Z13.820 Encounter for screening for osteoporosis; M79.605 Pain in left leg; M54.50 Low back pain, unspecified

== ENCOUNTER → 2024-04-04 11:14 | Outpatient (BNVA) | payer OTHER, SELFPAY | PROVIDERS: PCP Internal Medicine; Visit Provider Internal Medicine | DX: I10 Essential (primary) hypertension (principal); E78.00 Pure hypercholesterolemia, unspecified; E03.9 Hypothyroidism, unspecified; M79.605 Pain in left leg; M54.50 Low back pain, unspecified | CPT/HCPCS: 96127; 99212 ==

== ENCOUNTER 2024-05-18 09:14 | Outpatient (REF) | payer OTHER, SELFPAY ==
--- NOTE | ~2024-05-18 | MM_ITS ---
EXAMINATION: BONE DENSITOMETRY CLINICAL INDICATION: Age-related osteoporosis without current pathological fracture. COMPARISON: Baseline BD dated 06/02/2018. TECHNIQUE: Using a [employer] DXA System (software version: 13.1) manufactured by [employer], dual-energy x-ray absorptiometry was performed of the lumbar spine and left hip. The images are of good technical quality. Summary results are attached. FINDINGS: LEFT FEMUR, NECK: Current: BMD 0.756 g/cm2, Z-score -0.9, T-score -2.0, osteopenia. Baseline: BMD 0.834 g/cm2. LEFT FEMUR, TOTAL: Current: BMD 0.827 g/cm2, Z-score -0.7, T-score -1.4, osteopenia, 3.2% decrease from baseline (<5% change is not significant). Baseline: BMD 0.854 g/cm2. AP SPINE L1-L4: Current: BMD 1.093 g/cm2, Z-score 0.2, T-score -0.7, normal, 1.4% increase from baseline (<5% change is not significant). Baseline: BMD 1.078 g/cm2. IDENTIFIED RISK FACTORS: Menopause, family history (parent hip fracture). HISTORY OF FRACTURE: None listed. MEDICATIONS: None listed. MM/XR DEXA axial skeleton IMPRESSION: 1. DIAGNOSIS: Osteopenia based on the lowest T-score value of -2.0 in the femoral neck applying World Health Organization criteria. 2. 10-YEAR FRACTURE RISK PREDICTION, FRAX: Major osteoporotic fracture (clinical spine, forearm, hip or shoulder) 18.5%. Hip fracture 2.2%. 3. Treatment Recommendations: NOF guidelines recommend consideration for treatment in postmenopausal women and men age 50 and older presenting with the following: -A hip or vertebral (clinical or morphometric) fracture. -T-score less than or equal to -2.5 at the femoral neck or spine after appropriate evaluation to exclude secondary causes. -Low bone mass at the hip or spine and a 10-year fracture probability by FRAX of greater than or equal to 3% for hip fracture or greater than or equal to 20% for major osteoporotic fracture based on the [place] adapted WHO algorithm. 4. Other Recommendations: All treatment decisions require clinical judgment and consideration of individual patient factors, including patient preferences, comorbidities, previous drug use, risk factors not captured in the FRAX model (e.g. frailty, falls, vitamin D deficiency, increased bone turnover, interval significant decline in bone density) and possible under or overestimation of fracture risk by FRAX. Additional medical evaluation for secondary cause of low bone mineral density may be appropriate. FUTURE SCAN RECOMMENDATION: People with diagnosed cases of osteoporosis or at high risk for fracture should have regular bone mineral density tests. For patients eligible for Medicare, routine testing is allowed once every 2 years. The testing frequency can be increased to one year for patients who have rapidly progressing disease, those who are receiving or discontinuing medical therapy to restore bone mass, or have additional risk factors. Electronically signed by: Kayla Upton MD 06/12/2024 02:11 PM MARY LOZANO
--- NOTE | ~2024-05-18 | MM_ITS ---
EXAMINATION: MM SCREENING DIGITAL BREAST TOMOSYNTHESIS, BILATERAL CLINICAL INFORMATION: Screening. Asymptomatic. COMPARISON: Mammography: Comparison is made with available priors TECHNIQUE: Digital breast mammography with tomosynthesis is performed in both the craniocaudal and mediolateral oblique views along with computer-aided detection (CAD). FINDINGS: The breasts are heterogeneously dense, which may obscure small masses (ACR BI-RADS breast composition Category c). Left: There are no significant masses, abnormal calcifications, or other abnormalities. Right: Asymmetry upper breast on MLO view middle depth. Asymmetry lateral breast anterior to middle depth on CC view. No suspicious calcifications or other abnormal findings. MM/MM tomosynthesis screening BI IMPRESSION: Additional imaging is recommended ASSESSMENT: BI-RADS BI-RADS 0 - Incomplete: Needs additional Imaging. RECOMMENDATION: 1. Additional views of the right breast 2. Targeted ultrasound if warranted after review of the additional views. 3. Radiology department staff will contact the patient for additional imaging. Additional Imaging required This examination should not preclude the clinical evaluation of a suspicious palpable abnormality. This patient's information was entered into a reminder system with a target due date for their next mammogram. Electronically signed by: Josy Mattson DO 05/29/2024 04:37 PM MARY
== END 2024-05-18 09:15 | disposition home or self-care (01) ==
LOC: HO.MAMMO 09:14
PROVIDERS: PCP Internal Medicine; Visit Provider Internal Medicine
DX: Z12.31 Encounter for screening mammogram for malignant neoplasm of breast (principal); Z13.820 Encounter for screening for osteoporosis; M81.0 Age-related osteoporosis without current pathological fracture
CPT/HCPCS: 77063; 77067; 77080

== ENCOUNTER → 2024-05-18 09:45 | Outpatient (BNV) | payer OTHER, SELFPAY | PROVIDERS: PCP Internal Medicine; Visit Provider Internal Medicine | DX: Z12.31 Encounter for screening mammogram for malignant neoplasm of breast (principal) | CPT/HCPCS: 77063; 77067 ==

== ENCOUNTER 2024-05-18 10:19 | Outpatient (REF) | payer OTHER, SELFPAY ==
[2024-05-18 11:45] LABS: Alanine Aminotransferase 49 U/L (0-31); Alkaline Phosphatase 61 U/L (39-117); Anion Gap 11 (12-20); Aspartate Amino Transferase 47 U/L (5-31); Bilirubin Total 0.8 mg/dL (0.0-1.0); Blood Urea Nitrogen 17 mg/dL (9-16); Calcium 9.5 mg/dL (8.4-10.2); Carbon Dioxide 28 mmol/L (22-29); Chloride 107 mmol/L (96-108); Cholesterol 173 mg/dL (<200); Estimated Glomerular Filt Rate > 60; Glucose Random 106 mg/dL (60-115); HDL Cholesterol 46 mg/dL (>40); LDL Cholesterol Calculated 110 mg/dL (<100); Potassium 4.3 mmol/L (3.3-5.1); Sodium 142 mmol/L (135-145); Total Protein 7.8 g/dL (6.5-8.0); Triglycerides 86 mg/dL (<150)
[2024-05-18 12:02] LABS: Free T4 (Free Thyroxine) 1.37 ng/dL (0.71-1.85); Thyroid Stimulating Hormone 0.84 uIU/mL (0.32-4.0)
[2024-05-18 12:28] LABS: Estimated Average Glucose 111 mg/dL; Hemoglobin A1c % 5.5 % (<6.0); Total Hemoglobin (HGBA1C) 3609.3127 umol/L
== END 2024-05-18 10:20 | disposition home or self-care (01) ==
LOC: HO.LAB 10:19
PROVIDERS: PCP Internal Medicine; Visit Provider Internal Medicine
DX: R73.01 Impaired fasting glucose (principal); E78.00 Pure hypercholesterolemia, unspecified
CPT/HCPCS: 36415; 80053; 80061; 83036; 84439; 84443

== ENCOUNTER 2024-05-22 09:09 | Outpatient (AMB) | payer OTHER, SELFPAY ==
--- NOTE | 2024-05-22 09:09 | MHC.PC.OV ---
Intake Visit Reasons: Samina AMBROSE/[phone] Allergies latex [LATEX] Allergy (Unknown, Verified 05/22/24 09:09) ANAPHYLAXIS fruits Allergy (Unknown, Uncoded 05/22/24 09:09) itchy throat Tobacco use date assessed: 05/22/24 Fall risk assessment: No Falls in past year Last assessed Fall Risk: 05/22/24 Dental Screening Dental Screen Date: 05/22/24 Did you have a dental visit in the last 12 months?: Yes Did you have a dental problem in the last 6 months where you did not have access to dental care?: No Was dental information given to patient?: Patient has dentist HPI Samina AMBROSE/[phone] HPI Details The patient is a 68-year-old female presenting with a wellness visit and follow-up for back pain. The back pain was last addressed in March, and the patient reports improvement following rest. The patient has a history of elevated liver function tests, which are reportedly lower than previous assessments. There was vitamin D insufficiency identified in October 2022, with no current vitamin D assessment performed during this visit. The patient also has a history of asthma, requiring an Epipen and inhalers, with the albuterol inhaler noted as not being used recently. The patient required a COVID vaccine recently, resulting in transient sickness over a weekend, but symptoms have since resolved. The patient recalls her last physical was on November 08, 2019, necessary for reporting for insurance purposes. - Respiratory: Reports no recent use of rescue inhaler; denies breathing issues. - Gastrointestinal: Denies concerns aside from previously elevated liver function tests. - Musculoskeletal: Reports improvement in back pain with rest. - Endocrine: Denies thyroid concerns, as prior thyroid function was good. - General: Reports general good health with recent illness following vaccination resolved. [facility] Medical History Laboratory exam ordered as part of routine general medical examination Bronchitis SOB (shortness of breath) Hypertension COVID-19 Allergic rhinitis Asthma Anxiety Hypothyroid Hypercholesterolemia Obesity (BMI 30.0-34.9) Surgical History Cornea replaced by transplant History of trigger finger Status post corneal transplant History of section Family History Father Aneurysm CVA (cerebral vascular accident) Mother Hypertension Paternal Grandfather Brain aneurysm Social History Housing: House Alcohol intake: current Alcohol intake frequency: does not drink Comment: once a year 2 drinks Patient Tobacco Use Status: Never used Tobacco e-Cigarette/Vaping Use: Never Used Second Hand Smoke Exposure: No service: Yes Current occupational status: employed 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 1. Little interest or pleasure in doing things: not at all 2. Feeling down, depressed, or hopeless: not at all 3. Trouble falling or staying asleep, or sleeping too much: not at all 4. Feeling tired or having little energy: not at all 5. Poor appetite or overeating: not at all 6. Feeling bad about yourself - or that you are a failure or have let yourself or your family down: not at all 7. Trouble concentrating on things, such as reading the newspaper or watching television: not at all 8. Moving or speaking so slowly that other people could have noticed. Or the opposite - being so fidgety or restless that you have been moving around a lot more than usual: not at all 9. Thoughts that you would be better off or of hurting yourself in some way: not at all Total score: 0 Depression Screening Interpretation: Negative Depression Screening Done: Yes Source: Developed by Drs. Humberto Fisher, Breann Wing, Linus Mar and colleagues, with an educational everardo from [employer]. Thrive Questionnaire Date Thrive assessed: 05/22/24 I am a: Patient What is your living situation today?: I have a steady place to live Within the past 12 months, did the food you bought not last and you didn't have the money to get more?: Never true Within the past 12 months, did you worry whether your food would run out before you got money to buy more?: Never true Do you have trouble paying for medicines?: No Do you have trouble getting transportation to medical appointments?: No Do you have trouble paying your heating and electricity bill?: No Do you have trouble taking care of your child, family member or friend?: No Do you have trouble with day-to-day activities such as bathing, preparing meals, shopping, managing finances, etc.?: No Are you currently unemployed and looking for a job?: No Are you interested in more education?: No THRIVE Score: 0 AUDIT C Alcohol Use Questionnaire (AUDIT-C) 1. How often do you have a drink containing alcohol?: Never 3. How often do you have six or more drinks on one occasion?: Never Total Score: 0 MURPHY-7 AMB Questionnaire MURPHY-7 Date MURPHY - 7 assessed: 05/22/24 Feeling nervous, anxious, or on edge: 0 = Not at all Not being able to stop or control worryin = Not at all Worrying too much about different things: 0 = Not at all Trouble relaxin = Not at all Being so restless that it is hard to sit still: 0 = Not at all Becoming easily annoyed or irritable: 0 = Not at all Feeling afraid as if something awful might happen: 0 = Not at all Total MURPHY-7 score (0-4 normal; 5-9 mild; 10-14 moderate; 15-21 severe): 0 Source: Developed by Drs. Humberto Fisher, Breann Wing, Linus Mar and colleagues, with an educational everardo from [employer]. Physical exam (Primary Care) Tobacco/Smoking Status: Tobacco use Status Tobacco use date assessed 05/22/24 05/22/24 09:11 Patient Tobacco Use Status Never used Tobacco 05/22/24 09:11 e-Cigarette/Vaping Use Never Used 05/22/24 09:11 PHQ-9: PHQ-9 Score PHQ-9: Total score 0 05/22/24 09:11 Depression Screening Interpretation: Negative Thrive Assessment: Date of Thrive Assessment Date Thrive assessed 05/22/24 05/22/24 09:11 Telehealth Telehealth Telehealth Platform: Telephone Location of provider rendering services: practice address Location of patient: address on file Patient Identification confirmed using: Name, : Yes Telehealth method: voice only Patient verbally consented to treatment: Yes Patient verbally consented to billing insurance company: Yes Patient informed of any privacy concerns related to visit: Yes Coding Level of Care Code Tele Est Pt Level 4 (92650) Complex EM visit Add On G2211 Diagnoses Essential hypertension I10 Hypertension type: essential hypertension Hypercholesterolemia E78.00 Acquired hypothyroidism E03.9 Hypothyroidism type: acquired Mild intermittent asthma without complication J45.20 Asthma severity: mild Asthma persistence: intermittent Asthma complication type: uncomplicated Generalized anxiety disorder F41.1 Assessment & Plan Assessment & Plan (1) Hypertension: Code(s): I10 - Essential (primary) hypertension Category: Medical Qualifiers: Hypertension type: essential hypertension Qualified Code(s): I10 - Essential (primary) hypertension (2) Hypercholesterolemia: Code(s): E78.00 - Pure hypercholesterolemia, unspecified Category: Medical (3) Hypothyroid: Code(s): E03.9 - Hypothyroidism, unspecified Category: Medical Qualifiers: Hypothyroidism type: acquired Qualified Code(s): E03.9 - Hypothyroidism, unspecified (4) Asthma: Code(s): J45.909 - Unspecified asthma, uncomplicated Category: Medical Qualifiers: Asthma severity: mild Asthma persistence: intermittent Asthma complication type: uncomplicated Qualified Code(s): J45.20 - Mild intermittent asthma, uncomplicated (5) Generalized anxiety disorder: Code(s): F41.1 - Generalized anxiety disorder Category: Medical Plan - Monitor back pain and encourage rest when needed. - Review liver function tests; repeat testing may be needed if elevation persists. - Consider vitamin D supplementation; levels were previously low, especially given geographic location. - Continue asthma management with current inhalers and Epipen; no current need for albuteral based on usage. - Monitor for COVID-19 vaccine effects; no further action required for reported symptoms post-vaccination. - Prescribe necessary refills for both inhalers and Epipen to be sent to [facility] pharmacy in [place]. During the visit, we discussed the management of her back pain and the importance of rest for alleviation. We reviewed her recent blood work and noted improved liver function, though still elevated. We discussed past vitamin D levels which were low, especially given her residence in the [facility]. We did not currently assess vitamin D but acknowledged the ongoing need to monitor and potentially supplement in the future. For asthma management, we reviewed her recent usage of inhalers and confirmed she has adequate supplies, with prescriptions being refilled. We also reviewed recent vaccination reactions and confirmed no further adverse events requiring action. I reminded her of the importance of general preventive health measures, including hand hygiene, hydration, and remaining active. I also documented her past physical exam date. - Rest as needed for management and relief from back pain. - Follow a healthy lifestyle to support liver function; continue with regular health check-ups. - Consider vitamin D supplementation given previous low levels and limited sun exposure. - Use inhalers and Epipen as prescribed; contact for medical advice if symptoms of asthma worsen. - Stay informed on vaccine recommendations and manage any side effects as they occur. - Maintain good hand hygiene and stay hydrated. - Keep active with regular physical activity. Medications: Refilled albuterol sulfate 90 mcg/actuation (Ventolin HFA) 2 puffs inhalation Q6H PRN 8.5 grams 0RF shortness of breath or wheezing J45.20 - Mild intermittent asthma, uncomplicated epinephrine for 2 doses 0.3 mg (0.3 mL) IM Q10M PRN 2 ea 1RF anaphylaxis fluticasone propionate 110 mcg/actuation administer with spacer 2 puffs inhalation Q12H 12 grams 0RF J45.20 - Mild intermittent asthma, uncomplicated
== END 2024-05-22 10:03 | disposition home or self-care (01) ==
LOC: HO.HMCH 09:09
PROVIDERS: PCP Internal Medicine; Visit Provider Internal Medicine
DX: I10 Essential (primary) hypertension (principal); E78.00 Pure hypercholesterolemia, unspecified; E03.9 Hypothyroidism, unspecified; J45.20 Mild intermittent asthma, uncomplicated; F41.1 Generalized anxiety disorder

== ENCOUNTER 2024-07-02 11:35 | Emergency (ER) | payer MEDICARE, SELFPAY ==
--- NOTE | ~2024-07-02 | XR_ITS ---
CLINICAL HISTORY: pain, injury 3 view left ankle Comparison: None Findings: No acute fractures. Ankle mortise intact. No significant arthritic change. Large calcaneal spur. No ankle effusion. No radiopaque foreign body. IMPRESSION: 1. No acute findings. This document has been electronically signed by: Yoselyn Rivera MD on 07/02/2024 17:46:02
--- NOTE | ~2024-07-02 | XR_ITS ---
CLINICAL HISTORY: pain, injury 2 view left tibia-fibula Comparison: None Findings No fractures or dislocations. No joint effusion. No significant arthritic change. No radiopaque foreign body. IMPRESSION: 1. Normal left tibia-fibula This document has been electronically signed by: Yoselyn Rivera MD on 07/02/2024 17:46:20
--- NOTE | ~2024-07-02 | XR_ITS ---
EXAMINATION: XR LUMBOSACRAL SPINE CLINICAL INFORMATION: Low back pain COMPARISON: None available. TECHNIQUE: Three views of the lumbosacral spine. FINDINGS: Trace dextroconvex scoliosis. Normal lordosis. No fracture, traumatic subluxation, compression deformity, or suspicious bone lesion. Bone island noted in the medial left iliac bone. Advanced degenerative disc changes L2-3, L3-4, and L4-5. Degenerative facet changes most notable L3-S1. Normal facet alignment. Soft tissues demonstrate vascular calcifications but are otherwise normal. XR/XR lumbar spine 2-3V IMPRESSION: No acute findings lumbar spine. Moderate to advanced degenerative spondylosis. Electronically signed by: Silvino Gomez MD 07/02/2024 01:57 PM MARY
--- NOTE | ~2024-07-02 | XR_ITS ---
EXAMINATION: XR HIP, LEFT CLINICAL INFORMATION: Left hip pain COMPARISON: None available. TECHNIQUE: AP pelvis, and 2 views of the left hip. FINDINGS: No fracture, dislocation, or malalignment. The pelvis is intact. The proximal femurs are intact. The femoral heads are normal in contour. Bone island noted in the medial left iliac bone. No suspicious bone lesion. Degenerative changes in the lower lumbar spine. No soft tissue abnormalities. XR/XR hip LT w PEL1V IMPRESSION: No acute findings pelvis or left hip. Electronically signed by: Silvino Gomez MD 07/02/2024 01:55 PM MARY LOZANO
[2024-07-02 12:42] VITALS: BP 225/110; PULSE 66; RESP 18; TEMP 35.7; O2SAT 98; BMI 33.8
--- NOTE | 2024-07-02 12:47 | ED_ITS ---
HPI - Back Pain/Injury General Chief Complaint: Fall Stated Complaint: fall on ice, hip pain Time Seen by Provider: 07/02/24 18:18 Source: patient, RN notes reviewed and old records reviewed Mode of arrival: ambulatory Limitations: no limitations History of Present Illness ED Provider: Robyn HPI Narrative: Thickening 8-year-old female with a past medical history significant for hypertension, obesity, asthma, insomnia, hyperlipidemia presents for evaluation of left hip pain and back pain. Patient reports that she initially injured herself in February. She will was mowing the lawn and I shifted weight the wrong way. She reports worsening left lower back pain and left hip pain ever since then. However over the last 3 days she reports he has been unable to sleep due to the pain. She states that she was on her way to the hospital today when she slipped and fell onto her buttocks. She would not hit her head or lose consciousness. She reports injuring her right wrist but no other injuries or trauma from the fall today She denies any numbness or tingling but does have radiating pain to her left thigh and just above the left ankle Related Data Home Medications ?Medication ?Instructions ?Recorded ?Confirmed latanoprost 0.005 % eye drops 1 drp ophthalmic (eye) DAILY 03/10/20 03/06/24 aspirin 81 mg tablet,delayed 81 mg PO DAILY 06/12/21 03/06/24 release (Adult Low Dose Aspirin) Previous Rx's ?Medication ?Instructions ?Recorded inhalational spacing device #1 ea 02/09/21 (BreatheRite Valved MDI Spacer) albuterol sulfate 0.63 mg/3 mL 0.63 mg (3 mL) inhalation QID PRN 04/03/21 solution for nebulization shortness of breath or wheezing #75 mL nebulizers (AeroEclipse II #1 ea 04/03/21 Nebulizer) lorazepam 0.5 mg tablet 0.5 mg PO BID PRN anxiety 30 days 03/06/24 #25 tabs cyclobenzaprine 10 mg tablet 10 mg PO TID PRN muscle spasm #30 04/04/24 tabs levothyroxine 75 mcg tablet 75 mcg PO DAILY 90 days #90 tabs 04/04/24 lidocaine 5 % topical patch 1 patch topical DAILY #30 ea 04/04/24 lisinopril 40 mg tablet 40 mg PO DAILY 90 days #90 tabs 04/04/24 loratadine 10 mg tablet 10 mg PO DAILY #90 tabs 04/04/24 albuterol sulfate 90 mcg/actuation 2 puff inhalation Q6H PRN 05/22/24 aerosol inhaler (Ventolin HFA) shortness of breath or wheezing #8.5 grams epinephrine 0.3 mg/0.3 mL 0.3 mg (0.3 mL) IM Q10M PRN 05/22/24 injection, auto-injector anaphylaxis #2 ea fluticasone propionate 110 2 puff inhalation Q12H #12 grams 05/22/24 mcg/actuation HFA aerosol inhaler naproxen 500 mg tablet (Naprosyn) 500 mg PO BID PRN pain #60 tabs 05/29/24 omeprazole 20 mg capsule,delayed 20 mg PO DAILY #30 caps 05/31/24 release cyclobenzaprine 10 mg tablet 10 mg PO TID PRN muscle spasm #20 07/02/24 tabs dexamethasone 4 mg tablet 4 mg PO BID #6 tabs 07/02/24 tramadol 50 mg tablet 50 mg PO Q8H PRN severe pain 07/02/24 (scale score 7-10) #12 tabs Allergies Allergy/AdvReac Type Severity Reaction Status Date / Time latex [LATEX] Allergy Unknown ANAPHYLAXIS Verified 07/02/24 12:48 fruits Allergy Unknown itchy Uncoded 05/22/24 09:09 throat Review of Systems Constitutional: Constitutional: Denies body ache(s), Denies chills, Denies frequent falls and Reports headache(s) Eyes: Eyes: Denies blurry vision ENT: Denies vertigo, Denies dizziness and Reports headache(s) Cardiovascular: Cardiovascular: Denies chest pain and Denies dyspnea Respiratory: Respiratory: Denies cough and Denies dyspnea Gastrointestinal: Gastrointestinal: Denies abdominal pain, Denies nausea and Denies vomiting Musculoskeletal: Musculoskeletal: Reports back pain, Reports arthralgias, Denies joint swelling, Reports radiating pain into limb and Reports stiffness Integumentary/Breasts: Skin/Breast: Denies rash Neurologic: Denies vertigo, Denies dizziness, Denies frequent falls and Reports headache(s) [facility] Past Medical History Medical History Laboratory exam ordered as part of routine general medical examination Bronchitis SOB (shortness of breath) Hypertension COVID-19 Allergic rhinitis Asthma Anxiety Hypothyroid Hypercholesterolemia Obesity (BMI 30.0-34.9) Surgical History Cornea replaced by transplant History of trigger finger Status post corneal transplant History of section Family History Family History Father Aneurysm CVA (cerebral vascular accident) Mother Hypertension Paternal Grandfather Brain aneurysm Social History Social History Housing: House Alcohol intake: current Alcohol intake frequency: does not drink Comment: once a year 2 drinks Patient Tobacco Use Status: Never used Tobacco e-Cigarette/Vaping Use: Never Used Second Hand Smoke Exposure: No Advance Directives: No Advance Directives Information Provided: No Do you have a plan to hurt others: No Plan service: Yes Current occupational status: employed 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 Cognitive needs: No Hearing needs: No Vision needs: No Physical Exam Vital Signs: Vital Signs: Last Vital Signs Temp 96.2 F L 07/02/24 12:42 Pulse 72 07/02/24 18:00 Resp 20 07/02/24 18:00 BP 182/86 H 07/02/24 18:00 Pulse Ox 96 07/02/24 18:00 O2 Del Method Room Air 07/02/24 18:00 BMI result Body Mass Index 33.8 Const: General: healthy appearing, comfortable, no acute distress, alert and awake Nutritional Appearance: well nourished Orientation/consciousness: patient oriented x3 HEENT: Head: Yes normocephalic and Yes atraumatic Eyes: Eyelids: Yes eyelids normal Conjunctivae: conjunctivae normal Sclerae: sclerae normal Corneas: corneas normal Pupils: Equal, round and reactive pupils present EOM: EOMs intact bilaterally Neck: Neck: Yes full ROM Resp: Effort & Inspection: normal respiratory effort, able to speak in complete sentences and not labored Back/Spine/Pelvis: Other: Patient has tenderness to the left lumbar paraspinous region as well as the left hip. There was no visual or palpable deformity to the spine. No palpable deformity to the left hip. There was no shortening of left lower extremity. No calf tenderness. Straight leg raise positive on left. Skin: General skin exam: elasticity normal Neuro: General: patient oriented x3 Cranial nerves: Yes Equal, round and reactive pupils present and Yes Bilaterally intact EOM present Cognition (Neuro): normal cognition Course Course Course Narrative: This is a Rapid Medical Exam performed in triage by Gricel Tolliver PA-C. Full HPI, ROS and PE to be performed by primary ED provider. 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 denies incontinence or retention. Admits to taking BP meds today PE: Hypertensive, reproducible left hips tenderness. Ambulating with steady gait. Plan: X-rays, vital recheck, pain control Medications Administered Discontinued Medications Generic Name Dose Route Start Last Admin Trade Name Freq PRN Reason Stop Dose Admin Acetaminophen 975 mg 07/02/24 16:59 07/02/24 17:04 Acetaminophen 325 Mg Tablet PO 07/02/24 17:00 975 mg ONCE ONE Administration Cyclobenzaprine HCl 10 mg 07/02/24 18:31 07/02/24 18:36 Cyclobenzaprine Hcl 10 Mg Tablet PO 07/02/24 18:32 10 mg ONCE ONE Administration Ketorolac Tromethamine 30 mg 07/02/24 18:31 07/02/24 18:36 Ketorolac Tromethamine 30 Mg/Ml Vial IM 07/02/24 18:32 30 mg ONCE ONE Administration Medical Decision Making Medical Decision Making MDM Narrative: 68-year-old female presents for evaluation of left lower back pain and left hip pain. She reports falling today but was already on her way to the department for her left lower back pain. There was no head strike, she has no headache or neck pain. She is not anticoagulated. The patient's physical exam is consistent with lumbar radiculopathy. She had x-rays of her lumbar spine left tib-fib, and left hip hip, as well as left ankle. No traumatic injuries, fractures or dislocations were found. We will treat the patient's pain with Toradol and cyclobenzaprine. She was hypertensive on arrival to 225/110. This improved to 180 2/ without any intervention. She has no chest pain or headache. She will follow this up with her primary doctor Differential Diagnosis Differential Diagnoses: The differential diagnosis associated with the presentation includes Acute headache Back pain Radiculopathy Sciatica Bursitis Hypertension Radiology Impression Discussion of test interpretation with radiology: I have reviewed the radiologist's reading. Radiologist Impression: FINDINGS: No fracture, dislocation, or malalignment. The pelvis is intact. The proximal femurs are intact. The femoral heads are normal in contour. Bone island noted in the medial left iliac bone. No suspicious bone lesion. Degenerative changes in the lower lumbar spine. No soft tissue abnormalities. XR/XR hip LT w PEL1V IMPRESSION: No acute findings pelvis or left hip. Electronically signed by: Silvino Gomez MD 07/02/2024 01:55 PM EST RP Findings: No acute fractures. Ankle mortise intact. No significant arthritic change. Large calcaneal spur. No ankle effusion. No radiopaque foreign body. IMPRESSION: 1. No acute findings. This document has been electronically signed by: Yoselyn Rivera MD on 07/02/2024 17:46:02 FINDINGS: Trace dextroconvex scoliosis. Normal lordosis. No fracture, traumatic subluxation, compression deformity, or suspicious bone lesion. Bone island noted in the medial left iliac bone. Advanced degenerative disc changes L2-3, L3-4, and L4-5. Degenerative facet changes most notable L3-S1. Normal facet alignment. Soft tissues demonstrate vascular calcifications but are otherwise normal. XR/XR lumbar spine 2-3V IMPRESSION: No acute findings lumbar spine. Moderate to advanced degenerative spondylosis. Electronically signed by: Silvino Gomez MD 07/02/2024 01:57 PM EST RP Discharge Plan Discharge Clinical Impression: Acute left lumbar radiculopathy Patient Disposition: Still a Patient Instructions: Acute Low Back Pain (ED) Additional Instructions: Your x-ray showed no evidence of traumatic injuries. Your back pain is likely related to a pinched nerve. Take dexamethasone twice daily for the next 3 days Use cyclobenzaprine as needed for muscle spasms You may use ibuprofen/Tylenol for pain. Use tramadol for more severe breakthrough pain. Cyclobenzaprine and tramadol may make you drowsy, do not drink alcohol or drive after taking on Follow-up with your primary doctor, return for new or worsening symptoms You should mentioned your elevated blood pressure to your primary doctor when you see the neck Prescriptions: New dexamethasone 4 mg tablet 4 mg PO BID Qty: 6 0RF cyclobenzaprine 10 mg tablet 10 mg PO TID PRN (Reason: muscle spasm) Qty: 20 0RF tramadol 50 mg tablet 50 mg PO Q8H PRN (Reason: severe pain (scale score 7-10)) Qty: 12 0RF No Action naproxen [Naprosyn] 500 mg tablet 500 mg PO BID PRN (Reason: pain) Qty: 60 0RF omeprazole 20 mg capsule,delayed release(DR/EC) 20 mg PO DAILY Qty: 30 0RF (DME) AeroEclipse II Nebulizer Misc See Rx Instructions .ROUTE .MEDSUPPLY Qty: 1 0RF Rx Instructions: As directed albuterol sulfate 0.63 mg/3 mL solution for nebulization 0.63 mg inhalation QID PRN (Reason: shortness of breath or wheezing) Qty: 75 0RF latanoprost 0.005 % drops 1 drp ophthalmic (eye) DAILY (DME) BreatheRite Valved MDI Spacer Spacer See Rx Instructions .Route Qty: 1 0RF Rx Instructions: As directed aspirin [Adult Low Dose Aspirin] 81 mg tablet,delayed release (DR/EC) 81 mg PO DAILY albuterol sulfate [Ventolin HFA] 90 mcg/actuation HFA aerosol inhaler 2 puff inhalation Q6H PRN (Reason: shortness of breath or wheezing) Qty: 8.5 0RF fluticasone propionate 110 mcg/actuation HFA aerosol inhaler 2 puff inhalation Q12H Qty: 12 0RF Rx Instructions: administer with spacer epinephrine 0.3 mg/0.3 mL auto-injector 0.3 mg IM Q10M PRN (Reason: anaphylaxis) Qty: 2 1RF Rx Instructions: for 2 doses lorazepam 0.5 mg tablet 0.5 mg PO BID PRN (Reason: anxiety) 30 Days Qty: 25 0RF cyclobenzaprine 10 mg tablet 10 mg PO TID PRN (Reason: muscle spasm) Qty: 30 0RF lidocaine 5 % adhesive patch,medicated 1 patch topical DAILY Qty: 30 0RF Rx Instructions: leave on most painful area for up to 12 hrs lisinopril 40 mg tablet 40 mg PO DAILY 90 Days Qty: 90 2RF levothyroxine 75 mcg tablet 75 mcg PO DAILY 90 Days Qty: 90 2RF loratadine 10 mg tablet 10 mg PO DAILY Qty: 90 3RF Print Language: Turkmen
[2024-07-02] MEDS: Acetaminophen 325 MG TABLET 975 MG PO (17:04)
[2024-07-02 18:00] VITALS: BP 182/86; PULSE 72; RESP 20; O2SAT 96
--- OUTSIDE RECORDS SUMMARY | 2024-07-02 18:13 | XMS_ITS | Encounter Summary ---
Author Organization [employer] Address [address] [place] [address] [address] [place] [address] Care Team Providers Care Automobile Service Station Manager Name Role Phone Unavailable Primary Care Provider Unavailabl e Encounter Details Date Type Department Care Team (Latest Contact Info) Description 04/01/2022 Abstract [facility] CONVERSIONS Dental, Provider, DDS Social History Tobacco Use Types Packs/Day Years Used Date Smoking Tobacco: Never Assessed Comments Unknown Sex and Gender Information Value Date Recorded Sex Assigned at Female 03/29/2022 10:21 AM EDT Legal Sex Female 10:21 AM EDT Gender Identity Female 08/24/2023 9:05 AM EDT Sexual Orientation Straight 08/24/2023 9: 05 AM EDT documented as of this encounter Plan of Treatment Not on file documented as of this encounter Visit Diagnoses Not on filedocumented in this encounter
--- OUTSIDE RECORDS SUMMARY | 2024-07-02 18:13 | XMS_ITS | Encounter Summary ---
Author Organization [employer] Address [address] [place] [address] [address] [place] [id number] Care Team Providers Care Rug Sample Beveler Name Role Phone Unavailable Primary Care Provider Unavailabl e Encounter Details Date Type Department Care Team (Latest Contact Info) Description 07/18/2019 Abstract C CONVERSIONS Dental, Provider, DDS Social History Tobacco [...]
--- OUTSIDE RECORDS SUMMARY | 2024-07-02 18:14 | XMS_ITS | Clinical Summary ---
Author Organization [employer] Address [address] [place] [address] [address] [place] [address] Care Team Providers Care Physics Instructor Name Role Phone Unavailable Primary Care Provider Unavailabl e Allergies Active Allergy Reactions Criticality Noted Date Comments Latex 02/14/2014 Medications levothyroxine (Synthroid, Levoxyl) 75 MCG tablet 4 Active lisinopril 40 MG tablet Take 40 mg by mouth in the morning. 4 Active albuterol 108 (90 Base) MCG/ACT inhaler INHALE 2 PUFFS BY MOUTH EVERY 6 HOURS NEEDED FOR SHORTNESS OF BREATH OR WHEEZING 4 Active Flovent HFA 110 MCG/ACT inhaler INHALE 1 PUFF BY MOUTH EVERY 12 HOURS 3 Active aspirin 81 MG EC tablet Take 81 mg by mouth in the morning. Active Social History Tobacco Use Types Packs/Day Years Used Date Smoking Tobacco: Never Smokeless Tobacco: Never Comments Unknown Sex and Gender Information Value Date Recorded Sex Assigned at Female 03/29/2022 10:21 AM EDT Legal Sex Female 10:21 AM EDT Gender Identity Female 08/24/2023 9:05 AM EDT Sexual Orientation Straight 08/24/2023 9: 05 AM EDT Last Filed Vital Signs Vital Sign Reading Time Taken Comments Blood Pressure 150/84 09/05/2023 9:34 AM EDT Pulse 72 09/05/2023 9:34 AM EDT Temperature - - Respiratory Rate - - Oxygen Saturation - - Inhaled Oxygen Concentration - - Weight - - Height - - Body Mass Index - - Plan of Treatment Health Maintenance Due Date Last Done Comments CT Colonography 1957 Colonoscopy 1957 Colorectal Cancer Screening 1957 Depression Screening 1957 FIT DNA/Cologuard 1957 FIT 1957 FOBT 1957 SDOH Screening 1957 Sigmoidoscopy 1957 Alcohol/Substance Use Screening 1969 Hepatitis C Screening 10/12/1975 Mammogram 1997 Zoster Vaccines (1 of 2) 10/12/2007 Dental X-Ray: Full Mouth 07/19/2022 07/18/2019 Dental Oral Exam 09/30/2022 04/01/2022, , 04/19/2014 COVID-19 Vaccine ( season) 2024 04/02/2023, 05/14/2021, 09/17/2020, Additional history exists Influenza Vaccine (#1) 2024 Dental Prophylaxis 03/07/2024 09/05/2023, 1 06/01/2021, 07/18/2019 Dental X-Ray: Bitewings 09/05/2024 09/05/19 24, 04/01/2022, 07/18/2019, Additional history exists Tobacco Screening 11/06/2024 11/07/2023 DTaP/Tdap/Td Vaccines (2 - Td or Tdap) 09/18/2025 09/19/2015 RSV Patients and Patients Aged 60 years or older (1 - 1-dose 75+ series) 2032 Pneumococcal Vaccine: 50+ Years Completed 11/19/2022 HIB Vaccines Aged Out No longer eligi ble based on patient's age to complete this topic HPV Vaccines Aged Out No longer eligi ble based on patient's age to complete this topic Hepatitis A Vaccines Aged Out No long er eligible based on patient's age to complete this topic Hepatitis B Vaccines Aged Out No long er eligible based on patient's age to complete this topic IPV Vaccines Aged Out No longer eligi ble based on patient's age to complete this topic Meningococcal Vaccine Aged Out No arlet addie eligible based on patient's age to complete this topic RSV under 20 months Aged Out No longe r eligible based on patient's age to complete this topic Rotavirus Vaccines Aged Out No longer eligible based on patient's age to complete this topic Procedures Procedure Name Priority Date/Time Associated Diagnosis Comments PROPHYLAXIS - ADULT Routine 09/05/2023 9 :00 AM EDT BITEWINGS - 4 RADIOGRAPHIC IMAGES Routine 09/05/2023 9:00 AM EDT PERIODIC ORAL EVALUATION - ESTABLISHED PATIENT Routine 04/01/2022 12:00 AM EDT DIAGNOSTIC - DIAGNOSTIC IMAGING - INTRAORAL - COMPREHENSIVE SERIES OF RADIOGRAPHIC IMAGES Routine 07/18/2019 12:00 AM EST from Last 3 Months or Most Recently Relevant to Health Maintenance Insurance DENTAL [facility] DENTAL [facility] FULL (MEDICAID)
[2024-07-02] MEDS: Cyclobenzaprine HCl 10 MG TABLET PO (18:36)
[2024-07-02] MEDS: Ketorolac Tromethamine 30 MG/ML VIAL IM (18:36)
[2024-07-02 19:40] VITALS: BP 182/86; PULSE 72; RESP 20; TEMP -17.7; TEMP 0; O2SAT 96
== END 2024-07-02 19:43 | disposition home or self-care (01) ==
PROVIDERS: Emergency Provider Emergency Medicine Emergency Medical Services; PCP Internal Medicine
DX: S39.92XA Unspecified injury of lower back, initial encounter (principal); M54.16 Radiculopathy, lumbar region; M25.552 Pain in left hip; M25.572 Pain in left ankle and joints of left foot; W00.0XXA Fall on same level due to ice and snow, initial encounter; Y93.9 Activity, unspecified; Y92.9 Unspecified place or not applicable; Y99.8 Other external cause status
CPT/HCPCS: 72100; 73502; 73590; 73610; 96372; 99284; J1885

== ENCOUNTER → 2024-07-02 12:50 | Outpatient (BNV) | payer MEDICARE, SELFPAY | PROVIDERS: PCP Internal Medicine; Visit Provider Radiology Diagnostic Radiology | DX: M25.552 Pain in left hip (principal); M47.896 Other spondylosis, lumbar region; M25.572 Pain in left ankle and joints of left foot; M79.662 Pain in left lower leg | CPT/HCPCS: 72100; 73502; 73590; 73610 ==

== ENCOUNTER 2024-07-03 10:45 | Outpatient (REF) | payer MEDICARE, SELFPAY ==
--- NOTE | ~2024-07-03 | MM_ITS ---
EXAMINATION: MM DIAGNOSTIC DIGITAL BREAST TOMOSYNTHESIS, RIGHT Limited right ultrasound. CLINICAL INFORMATION: Call back from screening for right asymmetries. COMPARISON: Mammography: Comparison is made with available prior examinations. TECHNIQUE: Digital breast tomosynthesis is performed in both the craniocaudal and mediolateral oblique views along with computer-aided detection (CAD). Synthesized 2D images are generated from the tomosynthesis. Limited right breast ultrasound. FINDINGS: The breasts are heterogeneously dense, which may obscure small masses (ACR BI-RADS breast composition Category c). Right: The previously seen asymmetry in the lateral right breast on CC view does not persist on additional imaging projections and likely represented overlapping breast tissue. The previously seen asymmetry in the superior breast middle depth on MLO view does not persist on additional imaging projections and likely represented overlapping breast tissue. There are no significant masses, abnormal calcifications, or other abnormalities. Targeted color Doppler ultrasound scanning from 90 2:00 demonstrates normal fibroglandular breast tissue. There is no sonographic abnormality. MM/MM tomosynthesis added views R IMPRESSION: No mammographic or sonographic abnormality. ASSESSMENT: BI-RADS BI-RADS 1 - Negative RECOMMENDATION: 1 year F/U Results were provided to the patient at time of visit by the technologist. This patient's information was entered into a reminder system with a target due date for their next mammogram. Electronically signed by: Josy Mattson DO 07/03/2024 12:18 PM MARY
--- OUTSIDE RECORDS SUMMARY | 2024-07-03 11:37 | XMS_ITS | Clinical Summary ---
Author Organization [employer] Address [address] [place] [address] [address] [place] [address] Care Team Providers Care Commodities Manager Name Role Phone Unavailable Primary Care [...] Recently Relevant to Health Maintenance Insurance DENTAL [facility] DENTAL [facility] FULL (MEDICAID)
--- OUTSIDE RECORDS SUMMARY | 2024-07-03 11:37 | XMS_ITS | Encounter Summary ---
Author Organization [employer] Address [address] [place] [address] [address] [place] [address] Care Team Providers Care Bottom Turner Name Role Phone Unavailable Primary Care Provider [...]
--- OUTSIDE RECORDS SUMMARY | 2024-07-03 11:37 | XMS_ITS | Encounter Summary ---
Author Organization [employer] Address [address] [place] [address] [address] [place] [address] Care Team Providers Care Electronic Tester Name Role Phone Unavailable Primary Care Provider [...]
== END 2024-07-03 10:46 | disposition home or self-care (01) ==
LOC: HO.MAMMO 10:45
PROVIDERS: PCP Internal Medicine; Visit Provider Internal Medicine
DX: N64.89 Other specified disorders of breast (principal)
CPT/HCPCS: 76642; 77061; 77065

== ENCOUNTER → 2024-07-03 10:45 | Outpatient (BNV) | payer MEDICARE, SELFPAY | PROVIDERS: PCP Internal Medicine; Visit Provider Internal Medicine | DX: R92.2 Inconclusive mammogram (principal); R92.331 Mammographic heterogeneous density, right breast | CPT/HCPCS: 76642; 77065; G0279 ==

== ENCOUNTER → 2024-07-04 09:11 | Outpatient (BNVA) | payer MEDICARE, SELFPAY | PROVIDERS: PCP Internal Medicine | DX: M54.50 Low back pain, unspecified (principal); R73.01 Impaired fasting glucose; J45.40 Moderate persistent asthma, uncomplicated; E78.00 Pure hypercholesterolemia, unspecified; I10 Essential (primary) hypertension | CPT/HCPCS: 96127; 99212 ==

== ENCOUNTER 2024-07-11 10:53 | Outpatient (AMB) | payer MEDICARE, SELFPAY ==
--- NOTE | 2024-07-11 10:56 | MHC.PC.OV ---
Vital Signs 07/11/24 10:57 Height 5 ft 2 in Weight 176 lb 6 oz BMI 32.3 BP 140/70 H Blood Pressure Location Lt brachial Position Sitting Pulse 75 Pulse Source Pulse Oximeter Temp 97.1 F Temp Source Skin Pulse Oximetry (%) 96 Oxygen Delivery Method Room Air Intake Visit Reasons: (L) hip and (L) leg pain; unable to bear weight Intake Note: Patient is here to follow up on left hip and leg pain. Blacksmith Helper Required: No Workforce Development Specialist: Not Required per policy Accompanied by: Self / Same As Patient Allergies latex [LATEX] Allergy (Unknown, Verified 07/11/24 10:57) ANAPHYLAXIS fruits Allergy (Unknown, Uncoded 07/11/24 10:57) itchy throat Medication List - Last Reconciled 07/11/24 by Sophia Wick PA-C albuterol sulfate 0.63 mg (3 mL) inhalation QID PRN albuterol sulfate 90 mcg/actuation (Ventolin HFA) 2 puffs inhalation Q6H PRN aspirin (Adult Low Dose Aspirin) 81 mg PO DAILY bimatoprost 0.03% drps ophthalmic (eye) clotrimazole 10 mg mucous membrane TID 10 days cyclobenzaprine 10 mg PO TID PRN dexamethasone 4 mg PO BID dorzolamide 2% 1 drp ophthalmic (eye) TID epinephrine 0.3 mg (0.3 mL) IM Q10M PRN fluticasone propionate 110 mcg/actuation 2 puffs inhalation Q12H inhalational spacing device (BreatheRite Valved MDI Spacer) As directed latanoprost 0.005% 1 drp ophthalmic (eye) DAILY levothyroxine 75 mcg PO DAILY 90 days lidocaine 5% 1 patch topical DAILY lisinopril 40 mg PO DAILY 90 days loratadine 10 mg PO DAILY lorazepam 0.5 mg PO BID PRN 30 days naproxen (Naprosyn) 500 mg PO BID PRN nebulizers (AeroEclipse II Nebulizer) As directed omeprazole 20 mg PO DAILY tramadol 50 mg PO Q8H PRN Tobacco use date assessed: 07/11/24 Fall risk assessment: 1 Fall in past year Last assessed Fall Risk: 07/11/24 Dental Screening Dental Screen Date: 07/04/24 HPI (L) hip and (L) leg pain; unable to bear weight HPI Details 68-year-old female with past medical history of hypertension, hypercholesterolemia, hypothyroid, asthma, anxiety, generalized anxiety disorder and impaired glucose tolerance last seen 06/2024 coming in for acute problem. Presenting with chronic low back pain and left leg pain. Chronic low back pain experienced by the patient with recent exacerbation, leading to intense burning and aching sensation in the left leg, with rapid onset of pain upon standing. Management with medications including muscle relaxants, steroids, and Tylenol have provided incomplete relief, and she experienced a pain-free interval with past medication use but could not identify the exact medication. Pain management poses challenges due to financial constraints and ineffective past physical therapy interventions. No neurological deficits such as loss of urine or stool control, but initial constipation was noted, now resolved. She does also mentioned since having the steroids she has noticed she has developed thrush. [facility] Medical History Laboratory exam ordered as part of routine general medical examination Bronchitis SOB (shortness of breath) Hypertension COVID-19 Allergic rhinitis Asthma Anxiety Hypothyroid Hypercholesterolemia Obesity (BMI 30.0-34.9) Surgical History Cornea replaced by transplant History of trigger finger Status post corneal transplant History of section Family History Father Aneurysm CVA (cerebral vascular accident) Mother Hypertension Paternal Grandfather Brain aneurysm Social History Housing: House Alcohol intake: current Alcohol intake frequency: does not drink Comment: once a year 2 drinks Patient Tobacco Use Status: Never used Tobacco e-Cigarette/Vaping Use: Never Used Second Hand Smoke Exposure: No service: Yes Current occupational status: employed 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 How many drinks containing alcohol do you have on a typical day when you are drinking?: 1 or 2 3. How often do you have six or more drinks on one occasion?: Never Total Score: 0 MURPHY-7 AMB Questionnaire MURPHY-7 Date MURPHY - 7 assessed: 07/04/24 Source: Developed by DrsYaneth Fisher, Breann Wing, Linus Mar and colleagues, with an educational everardo from [employer]. Review of Systems Const Denies body aches, Denies chills, Denies fever(s), Denies headache(s) and Denies poor appetite Eyes Reports no additional complaints ENT Denies dizziness and Denies headache(s) Card Denies chest pain, Denies syncope, Denies lightheadedness and Denies dyspnea Resp Denies cough and Denies dyspnea GI Reports no additional complaints Reports no additional complaints Musc Reports as per HPI and Reports abnormal gait Skin/Breast Reports system reviewed and no additional complaints, except as documented Neuro Reports abnormal gait, Denies dizziness, Denies syncope and Denies headache(s) Psych Reports no additional complaints Physical exam (Primary Care) Vital Signs: Last Vital Signs Temp 97.1 F 07/11/24 10:57 Pulse 75 07/11/24 10:57 BP 140/70 H 07/11/24 10:57 Pulse Ox 96 07/11/24 10:57 Oxygen Delivery Method Room Air 07/11/24 10:57 BMI result Body Mass Index 32.3 Tobacco/Smoking Status: Tobacco use Status Tobacco use date assessed 07/11/24 07/11/24 11:01 Patient Tobacco Use Status Never used Tobacco 07/11/24 11:01 e-Cigarette/Vaping Use Never Used 07/11/24 11:01 Thrive Assessment: Date of Thrive Assessment Date Thrive assessed 07/04/24 07/11/24 11:01 Const General: cooperative, healthy appearing, comfortable and no acute distress Orientation/consciousness: patient oriented x3 HENMT Other: Erythema of the oropharynx and tongue with scattered white patches Head: Yes normocephalic Ears: hearing grossly normal bilaterally General nose exam: Normal external nose present Eyes General: appearance normal, both eyes and all related structures Conjunctivae: conjunctivae normal Neck Neck: Yes full ROM and Yes no lymphadenopathy Resp Effort & Inspection: normal respiratory effort Auscultation: clear to auscultation bilaterally, no crackles, no rales, no rhonchi and no wheezes Cardio Rate: regular rate Rhythm: regular rhythm Skin General skin exam: no rashes or lesions noted Neuro General: patient oriented x3 Gait exam (Neuro): Normal gait present Extrem Other: Pain to palpation over left heel. No calf tenderness or swelling bilaterally. Intact strength, sensation and pulses in bilateral lower extremities. General: Yes normal to inspection, Yes full ROM and No edema Psych Affect: normal affect Attitude: cooperative Insight: Good insight present (Psych) Judgement: Good judgement present (Psych) Coding Level of Care Code Est Pt Level 4 (33615) Diagnoses Leg pain, left M79.605 Impaired fasting blood sugar R73.01 Moderate persistent asthma J45.40 Essential hypertension I10 Hypertension type: essential hypertension Acute midline low back pain without sciatica M54.50 Back pain laterality: midline Chronicity: acute Sciatica presence: without sciatica Oral thrush B37.0 Assessment & Plan Assessment & Plan (1) Leg pain, left: Code(s): M79.605 - Pain in left leg Category: Medical Plan: We will address the patient's chronic low back pain and associated left leg pain by initiating gabapentin for neuropathic pain management. Gabapentin should be administered at bedtime to reduce the risk of daytime drowsiness and potential falls. The patient should continue managing mobility with the aid of a cane, particularly avoiding hazardous environmental conditions like snow and ice. She has been counseled on refraining from concurrently using muscle relaxants with gabapentin to prevent excessive sedation. If the current pain management strategies prove insufficient, revisiting the option of specialist referral for advanced pain interventions or possible spinal evaluation will be necessary. (2) Impaired fasting blood sugar: Code(s): R73.01 - Impaired fasting glucose Category: Medical Plan: Decrease the amount of carbohydrates such as pasta, bread, rice, and potatoes and limit the amount of sweets. Although fruits are generally healthy they should be eaten in moderation as they are still high in sugar. (3) Moderate persistent asthma: Code(s): J45.40 - Moderate persistent asthma, uncomplicated Category: Medical Plan: Asthma currently controlled on present medications. Avoid triggers such as allergies. Substitution inhaler sent as insurance denied her most recent inhaled corticosteroid. (4) Hypertension: Code(s): I10 - Essential (primary) hypertension Category: Medical Qualifiers: Hypertension type: essential hypertension Qualified Code(s): I10 - Essential (primary) hypertension Plan: Continue on current blood pressure medication. Avoid salt intake and encourage healthy diet and regular exercise. (5) Low back pain: Code(s): M54.50 - Low back pain, unspecified Category: Medical Qualifiers: Back pain laterality: midline Chronicity: acute Sciatica presence: without sciatica Qualified Code(s): M54.50 - Low back pain, unspecified Plan: We will address the patient's chronic low back pain and associated left leg pain by initiating gabapentin for neuropathic pain management. Gabapentin should be administered at bedtime to reduce the risk of daytime drowsiness and potential falls. The patient should continue managing mobility with the aid of a cane, particularly avoiding hazardous environmental conditions like snow and ice. She has been counseled on refraining from concurrently using muscle relaxants with gabapentin to prevent excessive sedation. Patient declining referral to pain management, physical therapy and back specialists. I did advise the patient that if symptoms worsen or persist she is strongly recommended to follow up with 1 of the specialists. (6) Oral thrush: Code(s): B37.0 - Candidal stomatitis Category: Medical Plan: Patient not candidate for nystatin rinse due to severe allergy to latex. Clotrimazole troches sent to pharmacy. Plan Patient was informed and verbally consented to the use of an ambient scribe for clinic note documentation during this visit. This note was constructed using voice recognition software. While every effort has been made to ensure accuracy and tubing machine tender, still areas may have been included sometimes these areas may affect the content or meeting of the given symptoms. Total time spent caring for the patient today was twenty minutes. This includes time spent before the visit reviewing the chart, time spent during the visit, and time spent after the visit and documentation. Medications: New clotrimazole 10 mg mucous membrane TID 10 days 30 tabs 0RF fluticasone furoate 100 mcg/actuation 1 inh inhalation DAILY 30 ea 1RF gabapentin 100 mg PO BEDTIME 30 caps 0RF Discontinued fluticasone propionate 110 mcg/actuation administer with spacer Discontinued Reason: Insurance Denied 2 puffs inhalation Q12H 12 grams 0RF J45.20 - Mild intermittent asthma, uncomplicated
[2024-07-11 10:57] VITALS: BP 140/70; PULSE 75; TEMP 36.2; O2SAT 96; BMI 32.3
--- OUTSIDE RECORDS SUMMARY | 2024-07-11 12:42 | XMS_ITS | Encounter Summary ---
Author Organization [employer] Address [address] [place] [address] 7 [address] [place] [id number] Care Team Providers Care Director Of Strategic Sourcing Name Role Phone Unavailable Primary Care Provider [...]
--- OUTSIDE RECORDS SUMMARY | 2024-07-11 12:42 | XMS_ITS | Encounter Summary ---
Author Organization [employer] Address [address] [place] [address] 7 h [address] [place] [id number] Care Team Providers Care Psychiatric Specialist Name Role Phone Unavailable Primary Care Provider [...]
--- OUTSIDE RECORDS SUMMARY | 2024-07-11 12:42 | XMS_ITS | Clinical Summary ---
Author Organization [employer] Address [address] [place] [address] 7 [place] [address] Care Team Providers Care Stock Patcher Name Role Phone Unavailable Primary Care Provider [...] Recently Relevant to Health Maintenance Insurance [facility] FULL (MEDICAID)
== END 2024-07-11 11:29 | disposition home or self-care (01) ==
PROVIDERS: PCP Internal Medicine
DX: M79.605 Pain in left leg (principal); R73.01 Impaired fasting glucose; J45.40 Moderate persistent asthma, uncomplicated; I10 Essential (primary) hypertension; M54.50 Low back pain, unspecified; B37.0 Candidal stomatitis

== ENCOUNTER → 2024-07-11 10:53 | Outpatient (BNVA) | payer MEDICARE, SELFPAY | PROVIDERS: PCP Internal Medicine | DX: M79.605 Pain in left leg (principal); R73.01 Impaired fasting glucose; J45.40 Moderate persistent asthma, uncomplicated; I10 Essential (primary) hypertension; M54.50 Low back pain, unspecified; B37.0 Candidal stomatitis | CPT/HCPCS: 99212 ==

== ENCOUNTER 2024-11-07 14:11 | Outpatient (AMB) | payer MEDICARE, SELFPAY ==
--- NOTE | 2024-11-07 14:14 | A.OFFPC_ITS ---
Vital Signs 11/07/24 14:15 Height 5 ft 2 in Weight 177 lb 2 oz BMI 32.4 BP 110/68 Blood Pressure Location Lt brachial Position Sitting Pulse 70 Pulse Source Pulse Oximeter Temp 97.3 F Temp Source Temporal Artery Scan Pulse Oximetry (%) 95 Oxygen Delivery Method Room Air Intake Visit Reasons: Podiatry referral Intake Note: Patient is here to follow up on Podiatry referral ([facility] (Dr Judge)). Net Mvc Developer Required: No Verify Rep: Not Required per policy Accompanied by: Self / Same As Patient Allergies latex [LATEX] Allergy (Unknown, Verified 11/07/24 14:15) ANAPHYLAXIS fruits Allergy (Unknown, Uncoded 11/07/24 14:15) itchy throat Tobacco use date assessed: 11/07/24 Fall risk assessment: No Falls in past year Last assessed Fall Risk: 11/07/24 Dental Screening Dental Screen Date: 07/04/24 [facility] Medical History Laboratory exam ordered as part of routine general medical examination Bronchitis SOB (shortness of breath) Hypertension COVID-19 Allergic rhinitis Asthma Anxiety Hypothyroid Hypercholesterolemia Obesity (BMI 30.0-34.9) Surgical History Cornea replaced by transplant History of trigger finger Status post corneal transplant History of section Family History Father Aneurysm CVA (cerebral vascular accident) Mother Hypertension Paternal Grandfather Brain aneurysm Social History Housing: House Alcohol intake: current Alcohol intake frequency: does not drink Comment: once a year 2 drinks Patient Tobacco Use Status: Never used Tobacco e-Cigarette/Vaping Use: Never Used Second Hand Smoke Exposure: No service: Yes Current occupational status: employed 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 1. Little interest or pleasure in doing things: not at all 2. Feeling down, depressed, or hopeless: not at all 3. Trouble falling or staying asleep, or sleeping too much: not at all 4. Feeling tired or having little energy: not at all 5. Poor appetite or overeating: not at all 6. Feeling bad about yourself - or that you are a failure or have let yourself or your family down: not at all 7. Trouble concentrating on things, such as reading the newspaper or watching television: not at all 8. Moving or speaking so slowly that other people could have noticed. Or the opposite - being so fidgety or restless that you have been moving around a lot more than usual: not at all 9. Thoughts that you would be better off or of hurting yourself in some way: not at all Total score: 0 Depression Screening Interpretation: Negative Depression Screening Done: Yes Source: Developed by Drs. Humberto Fisher, Breann Wing, Linus Mar and colleagues, with an educational everardo from [employer]. Thrive Questionnaire Date Thrive assessed: 11/06/24 I am a: Patient What is your living situation today?: I choose not to answer this question Within the past 12 months, did the food you bought not last and you didn't have the money to get more?: I choose not to answer this question Within the past 12 months, did you worry whether your food would run out before you got money to buy more?: I choose not to answer this question Do you have trouble paying for medicines?: I choose not to answer this question Do you have trouble getting transportation to medical appointments?: I choose not to answer this question Do you have trouble paying your heating and electricity bill?: No Do you have trouble taking care of your child, family member or friend?: I choose not to answer this question Do you have trouble with day-to-day activities such as bathing, preparing meals, shopping, managing finances, etc.?: I choose not to answer this question Are you currently unemployed and looking for a job?: I choose not to answer this question Are you interested in more education?: I choose not to answer this question Please select the resources that you would like help with: None Currently or been in a relationship where the following occur: I choose not to answer THRIVE Score: 0 AUDIT C Alcohol Use Questionnaire (AUDIT-C) 1. How often do you have a drink containing alcohol?: Never Total Score: 0 MURPHY-7 AMB Questionnaire MURPHY-7 Date MURPHY - 7 assessed: 11/07/24 Feeling nervous, anxious, or on edge: 0 = Not at all Not being able to stop or control worryin = Not at all Worrying too much about different things: 0 = Not at all Trouble relaxin = Not at all Being so restless that it is hard to sit still: 0 = Not at all Becoming easily annoyed or irritable: 0 = Not at all Feeling afraid as if something awful might happen: 0 = Not at all Total MURPHY-7 score (0-4 normal; 5-9 mild; 10-14 moderate; 15-21 severe): 0 Source: Developed by Drs. Humberto Fisher, Breann Wing, Linus Mar and colleagues, with an educational everardo from [employer]. Physical exam (Primary Care) Vital Signs: Last Vital Signs Temp 97.3 F 11/07/24 14:15 Pulse 70 11/07/24 14:15 BP 110/68 11/07/24 14:15 Pulse Ox 95 11/07/24 14:15 Oxygen Delivery Method Room Air 11/07/24 14:15 BMI result Body Mass Index 32.4 Tobacco/Smoking Status: Tobacco use Status Tobacco use date assessed 11/07/24 11/07/24 14:22 Patient Tobacco Use Status Never used Tobacco 11/07/24 14:22 e-Cigarette/Vaping Use Never Used 11/07/24 14:22 PHQ-9: PHQ-9 Score PHQ-9: Total score 0 11/07/24 14:43 Depression Screening Interpretation: Negative Thrive Assessment: Date of Thrive Assessment Date Thrive assessed 11/06/24 11/07/24 14:22 Currently or been in a relationship where the following occur: I choose not to answer Const General: alert; No acute distress Eyes Conjunctivae: conjunctivae normal Resp Auscultation: clear to auscultation bilaterally Cardio Rate: regular rate Rhythm: regular rhythm GI Inspection: Yes normal to inspection Extrem General: Yes normal to inspection and No edema Coding Level of Care Code Est Pt Level 3 (53851) Diagnoses Left foot pain M79.672 Hearing difficulty H91.90 Generalized anxiety disorder F41.1 Assessment & Plan Assessment & Plan (1) Left foot pain: Code(s): M79.672 - Pain in left foot Category: Medical (2) Hearing difficulty: Code(s): H91.90 - Unspecified hearing loss, unspecified ear Category: Medical (3) Generalized anxiety disorder: Code(s): F41.1 - Generalized anxiety disorder Category: Medical Plan: refill done on lorazepam Plan History of Present Illness The patient is a 69-year-old female presenting with foot and left leg sensation abnormality follow-up. She describes a unique sensation in her left leg nesha to tightness and skin feeling as if swollen without visible edema. The sensation is nesha to that of a first-degree burn and is accompanied by occasional numbness. This issue began in February following a minor incident while mowing the lawn and worsened after hitting her foot two months ago, which resulted in significant bruising. There has been no imaging performed, and the condition involves a persistent altered sensation in the left leg. Health Maintenance Social History - The patient mentioned efforts to manage her glucose by reducing soda intake and using Stevia as an alternative to sugar. - The patient is planning a vacation to [place], indicating a temporary absence. - The patient has been engaging in yard work, such as mowing the lawn, indicating a level of activity. Review of Systems - Musculoskeletal: Reports left leg tightness and altered sensation. - Neurological: Reports numbness and tingling in the left leg upon touch. Denies generalized numbness. Physical Exam Results - X-ray of the left foot was recommended but not yet performed. Plan The patient was advised to obtain an x-ray of the left foot to investigate potential skeletal issues following her traumatic experience. She will meet with a e business consultant to further evaluate and manage the abnormal sensations in the left foot and leg, particularly the nerve concerns suggested by the physical therapist. A prescription for lorazepam was provided to assist with her anxiety symptoms during her vacation. Additionally, the patient was encouraged to continue reducing her sugar intake using Stevia to improve her glucose tolerance. Patient was informed and verbally consented to the use of an ambient scribe for clinic note documentation during this visit. Discussion Notes During the visit, I discussed with the patient the unusual sensations in her left leg and foot, emphasizing the importance of obtaining an x-ray to rule out any skeletal issues. We agreed on the necessity of consulting with a e business consultant for further evaluation, particularly focusing on potential nerve problems as suggested by her physical therapist. The patient expressed interest in ensuring she manages her anxiety symptoms while traveling, prompting the provision of a lorazepam prescription. We also discussed her positive lifestyle change in reducing sugar intake by using Stevia, which she credits for aiding her glucose management. Return precautions and anticipatory guidance regarding further evaluation and follow-up appointments were addressed. Patient Instructions - Schedule and complete an x-ray of the left foot as soon as possible. - Follow up with a e business consultant for further assessment of the left foot and leg sensations. - Take lorazepam as prescribed for anxiety management during travel. - Continue using Stevia as a sugar substitute to aid in glucose management. - Monitor for any changes or worsening of symptoms, and seek care if necessary. Orders: Referrals Podiatry Referral M79.672 - Pain in left foot Speech and Hearing Referral H91.90 - Unspecified hearing loss, unspecified ear Medications: Refilled lorazepam 0.5 mg PO BID PRN 25 tabs 0RF anxiety 30 days F41.1 - Generalized anxiety disorder
[2024-11-07 14:15] VITALS: BP 110/68; PULSE 70; TEMP 36.3; O2SAT 95; BMI 32.4
--- OUTSIDE RECORDS SUMMARY | 2024-11-07 16:17 | XMS_ITS | Encounter Summary ---
Author Organization [facility] Address [address] [place] [address] [place] [id number] Care Team Providers Care Hogshead Salvage Name Role Phone Unavailable Primary Care Provider [...]
== END 2024-11-07 14:56 | disposition home or self-care (01) ==
LOC: HO.HMCH 14:11
PROVIDERS: PCP Internal Medicine; Visit Provider Internal Medicine
DX: M79.672 Pain in left foot (principal); H91.90 Unspecified hearing loss, unspecified ear; F41.1 Generalized anxiety disorder

== ENCOUNTER → 2024-11-07 14:11 | Outpatient (BNVA) | payer MEDICARE, SELFPAY | PROVIDERS: PCP Internal Medicine; Visit Provider Internal Medicine | DX: M79.672 Pain in left foot (principal); F41.1 Generalized anxiety disorder; H91.90 Unspecified hearing loss, unspecified ear | CPT/HCPCS: 96127; 99212 ==

== ENCOUNTER 2024-11-15 10:15 | Outpatient (AMB) | payer MEDICARE, SELFPAY ==
[2024-11-15 10:17] VITALS: BP 122/76; PULSE 67; O2SAT 96; BMI 32.5
--- NOTE | 2024-11-15 10:17 | A.OFFPC_ITS ---
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 Required: No Accompanied by: Self / Same As Patient Allergies latex (LATEX) Allergy (Unknown, Verified 11/15/24 10:18) ANAPHYLAXIS fruits Allergy (Unknown, Uncoded 11/15/24 10:18) itchy throat Medication List - Last Reconciled 11/15/24 by Felipe Perry MD albuterol sulfate 0.63 mg (3 mL) inhalation QID PRN albuterol sulfate 90 mcg/actuation (Ventolin HFA) 2 puffs inhalation Q6H PRN aspirin (Adult Low Dose Aspirin) 81 mg PO DAILY bimatoprost 0.03% drps ophthalmic (eye) dorzolamide 2% 1 drp ophthalmic (eye) TID epinephrine 0.3 mg (0.3 mL) IM Q10M PRN inhalational spacing device (BreatheRite Valved MDI Spacer) As directed latanoprost 0.005% 1 drp ophthalmic (eye) DAILY levothyroxine 75 mcg PO DAILY 90 days lisinopril 40 mg PO DAILY 90 days lorazepam 0.5 mg PO BID PRN 30 days nebulizers (AeroEclipse II Nebulizer) As directed Tobacco use date assessed: 11/15/24 Fall risk assessment: No Falls in past year Last assessed Fall Risk: 11/15/24 Dental Screening Dental Screen Date: 11/15/24 Did you have a dental visit in the last 12 months?: No Did you have a dental problem in the last 6 months where you did not have access to dental care?: No Was dental information given to patient?: Patient has dentist [facility] Medical History Laboratory exam ordered as part of routine general medical examination Bronchitis SOB (shortness of breath) Hypertension COVID-19 Allergic rhinitis Asthma Anxiety Hypothyroid Hypercholesterolemia Obesity (BMI 30.0-34.9) Surgical History Cornea replaced by transplant History of trigger finger Status post corneal transplant History of section Family History Father Aneurysm CVA (cerebral vascular accident) Mother Hypertension Paternal Grandfather Brain aneurysm Social History (Updated 11/15/24 @ 10:54 by Felipe Perry MD) Housing: House Alcohol intake: current Alcohol intake frequency: does not drink Comment: once a year 2 drinks on vacation Patient Tobacco Use Status: Never used Tobacco e-Cigarette/Vaping Use: Never Used Second Hand Smoke Exposure: No service: Yes Current occupational status: employed 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 1. Little interest or pleasure in doing things: not at all 2. Feeling down, depressed, or hopeless: not at all 3. Trouble falling or staying asleep, or sleeping too much: not at all 4. Feeling tired or having little energy: not at all 5. Poor appetite or overeating: not at all 6. Feeling bad about yourself - or that you are a failure or have let yourself or your family down: not at all 7. Trouble concentrating on things, such as reading the newspaper or watching television: not at all 8. Moving or speaking so slowly that other people could have noticed. Or the opposite - being so fidgety or restless that you have been moving around a lot more than usual: not at all 9. Thoughts that you would be better off or of hurting yourself in some way: not at all Total score: 0 Depression Screening Interpretation: Negative Depression Screening Done: Yes Source: Developed by Drs. Humberto Fisher, Breann Wing, Linus Mar and colleagues, with an educational everardo from [employer]. Thrive Questionnaire Date Thrive assessed: 11/15/24 I am a: Patient What is your living situation today?: I choose not to answer this question Within the past 12 months, did the food you bought not last and you didn't have the money to get more?: I choose not to answer this question Within the past 12 months, did you worry whether your food would run out before you got money to buy more?: I choose not to answer this question Do you have trouble paying for medicines?: I choose not to answer this question Do you have trouble getting transportation to medical appointments?: I choose not to answer this question Do you have trouble paying your heating and electricity bill?: No Do you have trouble taking care of your child, family member or friend?: I choose not to answer this question Do you have trouble with day-to-day activities such as bathing, preparing meals, shopping, managing finances, etc.?: I choose not to answer this question Are you currently unemployed and looking for a job?: I choose not to answer this question Are you interested in more education?: I choose not to answer this question Please select the resources that you would like help with: None Currently or been in a relationship where the following occur: I choose not to answer THRIVE Score: 0 AUDIT C Alcohol Use Questionnaire (AUDIT-C) 1. How often do you have a drink containing alcohol?: Never 3. How often do you have six or more drinks on one occasion?: Never Total Score: 0 MURPHY-7 AMB Questionnaire MURPHY-7 Date MURPHY - 7 assessed: 11/15/24 Feeling nervous, anxious, or on edge: 0 = Not at all Not being able to stop or control worryin = Not at all Worrying too much about different things: 0 = Not at all Trouble relaxin = Not at all Being so restless that it is hard to sit still: 0 = Not at all Becoming easily annoyed or irritable: 0 = Not at all Feeling afraid as if something awful might happen: 0 = Not at all Total MURPHY-7 score (0-4 normal; 5-9 mild; 10-14 moderate; 15-21 severe): 0 Source: Developed by Drs. Humberto Fisher, Breann Wing, Linus Mar and colleagues, with an educational everardo from [employer]. Review of Systems Const Denies poor appetite and Denies weakness Eyes Denies no additional complaints ENT Reports Normal hearing present, Denies dizziness, Denies nasal congestion, Denies tinnitus and Denies sore throat Card Denies chest pain, Denies syncope, Denies rapid heart rate and Denies dyspnea Resp Denies cough and Denies dyspnea GI Denies change in stool character, Reports constipation, Denies diarrhea, Denies nausea and Denies vomiting Denies urinary frequency, Denies difficulty voiding and Denies dysuria Neuro Reports Normal hearing present, Denies confusion, Denies dizziness, Denies syncope and Denies weakness Psych Denies confusion Physical exam (Primary Care) Vital Signs: Last Vital Signs Pulse 67 11/15/24 10:17 BP 122/76 11/15/24 10:17 Pulse Ox 96 11/15/24 10:17 Oxygen Delivery Method Room Air 11/15/24 10:17 BMI result Body Mass Index 32.5 Tobacco/Smoking Status: Tobacco use Status Tobacco use date assessed 11/15/24 11/15/24 10:22 Patient Tobacco Use Status Never used Tobacco 11/15/24 10:54 e-Cigarette/Vaping Use Never Used 11/15/24 10:54 PHQ-9: PHQ-9 Score PHQ-9: Total score 0 11/15/24 10:49 Depression Screening Interpretation: Negative Thrive Assessment: Date of Thrive Assessment Date Thrive assessed 11/15/24 11/15/24 10:22 Currently or been in a relationship where the following occur: I choose not to answer Const General: No confusion Orientation/consciousness: No confusion HENMT Head: Yes normocephalic Ears: external ears normal and TM's normal bilaterally Face and sinus: Yes normal facial exam Mouth: moist mucous membranes Throat: Yes tonsils normal Eyes Conjunctivae: conjunctivae normal Pupils: Equal, round and reactive pupils present and Pupil accommodation reflex normal Direct Ophthalmoscopy: normal light reflex Neck Neck: No lymphadenopathy Thyroid: Thyroid normal Chest Chest palpation & inspection: normal inspection of the chest Resp Effort & Inspection: normal respiratory effort and no audible wheezes Auscultation: clear to auscultation bilaterally, no crackles, no wheezes and lung sounds not diminished Cardio Rate: regular rate Rhythm: regular rhythm Peripheral pulses: radial pulses present and dorsalis pedis present GI Palpation (GI): no masses Auscultation: normal bowel sounds and normoactive bowel sounds Rectal Exam - Female: deferred Skin General skin exam: no rashes or lesions noted Rashes: no rashes Neuro General: No confusion Cranial nerves: Yes Equal, round and reactive pupils present and Yes Normal hearing present Cognition (Neuro): normal cognition Gait exam (Neuro): Normal gait present Motor exam (neuro): 5/5 motor strength present throughout Deep tendon reflexes (DTR's): Right brachioradialis reflex intensity grade: 2+, Left brachioradialis reflex intensity grade: 2+, Right patellar reflex intensity grade: 2+ and Left patellar reflex intensity grade: 2+ Extrem General: No edema Coding Level of Care Code Est Pt Prev Care >65y(13485) Diagnoses Annual physical exam Z00.00 Moderate persistent asthma J45.40 Acquired hypothyroidism E03.9 Hypothyroidism type: acquired Essential hypertension I10 Hypertension type: essential hypertension Hypercholesterolemia E78.00 Generalized anxiety disorder F41.1 Assessment & Plan Assessment & Plan (1) Annual physical exam: Code(s): Z00.00 - Encounter for general adult medical examination without abnormal findings Category: Medical Plan: Patient is advised to eat healthy, keep well hydrated, keep active and have adequate sleep. (2) Moderate persistent asthma: Code(s): J45.40 - Moderate persistent asthma, uncomplicated Category: Medical Plan: Continue with albuterol inhaler (3) Hypothyroid: Code(s): E03.9 - Hypothyroidism, unspecified Category: Medical Qualifiers: Hypothyroidism type: acquired Qualified Code(s): E03.9 - Hypothyroidism, unspecified Plan: Continue with thyroid medication patient needs blood (4) Hypertension: Code(s): I10 - Essential (primary) hypertension Category: Medical Qualifiers: Hypertension type: essential hypertension Qualified Code(s): I10 - Essential (primary) hypertension Plan: Continue with blood pressure medication. Decrease salt intake and exercise patient is on lisinopril 40 mg once a day (5) Hypercholesterolemia: Code(s): E78.00 - Pure hypercholesterolemia, unspecified Category: Medical Plan: Avoid fried foods, chicken skin, eggs, butter margarine, pastries and meat. Be it pork or beef they have a lot of cholesterol LDL goal of less than 130 and triglyceride of less than 150 (6) Generalized anxiety disorder: Code(s): F41.1 - Generalized anxiety disorder Category: Medical Plan: Continue with lorazepam as needed Plan History of Present Illness The patient is a 69-year-old female presenting for a physical exam and management of chronic conditions. She has a history of hypertension, hypothyroidism, hypercholesterolemia, generalized anxiety disorder, and moderate persistent asthma. The patient underwent radioactive iodine ablation for thyroid issues in the past. Her blood work from October 2023 showed normal renal function and blood sugar levels, but elevated liver function tests were noted, which is a persistent finding. Her LDL cholesterol has decreased to 110 mg/dL, and her thyroid function is normal. The patient reports left foot pain, which remains unchanged since her last visit. She has not had any new diagnoses since her last visit, and her mammogram results were normal. The patient has tinnitus and has not undergone a hearing test yet. She denies any alcohol consumption except on vacations and does not smoke. She reports no dizziness, nausea, vomiting, or chest pain. Health Maintenance - Mammogram up to date - Bone density test last done April 2024 - Referral for colon cancer screening with stool test - Pneumonia vaccination received in 2022 Social History - Alcohol: Denies regular consumption, only drinks on vacations every two years. - Smoking: Denies smoking history. - Exercise: Engages in walking and exercises regularly. Review of Systems - Cardiovascular: Denies chest pain, syncope. - Respiratory: Denies dyspnea, cough. - Gastrointestinal: Denies nausea, vomiting, constipation. - Neurological: Reports tinnitus, denies dizziness. - Genitourinary: Denies dysuria, nocturia. Physical Exam General: Cooperative, healthy appearing, comfortable, no acute distress and well developed Orientation: Patient oriented x3 Limitations: No limitations Head: Normal to inspection Ears: Hearing grossly normal bilaterally, but patient reports tinnitus Nose: Normal external nose present Face and sinus: Normal facial exam Eyes: Appearance normal, both eyes and all related structures Neck: Normal visual inspection and Yes full ROM Respiratory: Normal respiratory effort and able to speak in complete sentences. Clear to auscultation bilaterally Cardiovascular: Regular rate and rhythm. Normal S1 and S2 GI: Normal to inspection. Soft to palpation and nontender Skin: No rashes or lesions noted Neuro: Patient oriented x3 Extremities: Normal to inspection, patient reports bruising likely from cleaning garage Results - Labs: Normal renal function and blood sugar levels, elevated liver function tests noted in October 2023. - Labs: LDL cholesterol decreased to 110 mg/dL, normal thyroid function. Plan The patient will continue with her current medications, including lisinopril for hypertension and thyroid medication for hypothyroidism. She is advised to continue using her albuterol inhaler as needed for asthma management. A referral for a colon cancer screening with a stool test has been made, and the patient is encouraged to complete this screening. The patient is reminded to complete her blood work, which requires fasting, to monitor her liver function and cholesterol levels. She is advised to maintain her exercise routine and increase water intake to support overall health. A referral to gynecology has been made for further evaluation of her gynecological health, including a Pap smear. Patient was informed and verbally consented to the use of an ambient scribe for clinic note documentation during this visit. Discussion Notes During the visit, we discussed the importance of continuing current medications for hypertension and hypothyroidism. I emphasized the need for the patient to complete her blood work to monitor liver function and cholesterol levels. We also discussed the referral for colon cancer screening and the importance of completing this preventative measure. The patient was advised to maintain her exercise routine and increase water intake for overall health benefits. A referral to gynecology was made for further evaluation of her gynecological health, including a Pap smear. Patient Instructions - Continue taking lisinopril and thyroid medication as prescribed. - Use albuterol inhaler as needed for asthma. - Complete blood work with fasting to monitor liver function and cholesterol. - Schedule and complete colon cancer screening with stool test. - Maintain exercise routine and increase water intake. - Follow up with gynecology for Pap smear evaluation. Orders: Orders Complete Blood Count Auto Diff Today E03.9 - Hypothyroidism, unspecified Comprehensive Met. Panel Today E03.9 - Hypothyroidism, unspecified Thyroid Stimulating Hormone Today E03.9 - Hypothyroidism, unspecified Lipid Panel Today E03.9 - Hypothyroidism, unspecified, E78.00 - Pure hypercholesterolemia, unspecified Vitamin D 25-OH Total Today E03.9 - Hypothyroidism, unspecified Hemoglobin A1c Today E03.9 - Hypothyroidism, unspecified Free T4 (Free Thyroxine) Today E03.9 - Hypothyroidism, unspecified Vitamin B12 and Folate Today E03.9 - Hypothyroidism, unspecified Referrals Cologuard Test Z12.11 - Encounter for screening for malignant neoplasm of colon CUT OFF MACHINE OPERATOR Referral Z12.4 - Encounter for screening for malignant neoplasm of cervix
--- OUTSIDE RECORDS SUMMARY | 2024-11-15 11:36 | XMS_ITS | Encounter Summary ---
Author Organization [facility] Address [address] [place] [address] [facility] [place] [id number] Care Team Providers Care Clinical Education Specialist Name Role Phone Unavailable Primary Care [...]
== END 2024-11-15 11:05 | disposition home or self-care (01) ==
PROVIDERS: PCP Internal Medicine; Visit Provider Internal Medicine
DX: Z00.00 Encounter for general adult medical examination without abnormal findings (principal); J45.40 Moderate persistent asthma, uncomplicated; E03.9 Hypothyroidism, unspecified; I10 Essential (primary) hypertension; E78.00 Pure hypercholesterolemia, unspecified; F41.1 Generalized anxiety disorder

== ENCOUNTER → 2024-11-15 10:15 | Outpatient (BNVA) | payer MEDICARE, OTHER, SELFPAY | PROVIDERS: PCP Internal Medicine; Visit Provider Internal Medicine | DX: Z00.00 Encounter for general adult medical examination without abnormal findings (principal); I10 Essential (primary) hypertension; J45.40 Moderate persistent asthma, uncomplicated; E03.9 Hypothyroidism, unspecified; E78.00 Pure hypercholesterolemia, unspecified; F41.1 Generalized anxiety disorder | CPT/HCPCS: 96127; 99397 ==

== ENCOUNTER 2024-11-26 09:54 | Outpatient (REF) | payer MEDICARE, OTHER, SELFPAY ==
--- OUTSIDE RECORDS SUMMARY | 2024-11-26 10:27 | XMS_ITS | Patient Health Record ---
Author Organization [facility] [address] Roland Address [address] [place] [address] Care Team Providers Care Help Desk Associate Name Role Phone Felipe Perry Primary Care Provider Sirisha Pan Unavailable [phone] Randall Sveta Unavailable [phone] Monroe Judge Unavailable [phone] Allergies Allergen (clinical drug ingredient) Drug/Non Drug Allergy documented on EMR Reaction Allergy Type Onset Date Status Fresh fruit Fresh Fruit (uncoded) itchy lips and tongue Allergy Active Latex Latex (uncoded) itchy hands and lips Allergy Active Reason For Referral Diagnosis 1 Pain in unspecified foot (M79.673) Referring Provider First Name Felipe Referring Provider Last Name [facility] Referred Provider Monroe Judge Referred Address [address] [place], [place],[address], Referred Provider Specialty Podiatry Referral Priority Routine Medications Medication SIG (Take, Route, Frequency, Duration) [...] ast year? No Points 0 Interpretation Negative Encounters Encounter Location Date Provider Diagnosis [facility] [place] [address] [place] [address] 10/29/2024 Sveta Pereira [facility] [address] [place] [address] 11/20/2024 Monroe Judge [facility] [place] [address] [place] [address] 11/22/2024 Monroe Judge Plan Of Treatment Next Appt Details Provider Name:Sirisha orantes, 11/29/2024 09:30:00 AM, [address] [place], [address], Insurance Providers Payer Name Payer Address Payer Phone Subscriber Number Group Number Insured Name Patient Relationship to Insured Coverage Start Date Coverage End Date [facility] [address] [place] [phone] [id number] Jada Dubois Self - patient is the insured Medical (General) History Medical History History ICD Code asthma Back,Hip,and Knee pain Cataracts covid-19 Glaucoma thyroid Measles Mumps Chicken pox Surgical History Surgery Date(Month/Year) corneal transplant 2x
[2024-11-26 11:12] LABS: MANUAL DIFF FLAG NO
[2024-11-26 11:21] LABS: Basophils Absolute Auto 0.1 X10*3/uL (0.0-0.2); Basophils Percent Auto 0.8 % (0-2); Eosinophils Absolute Auto 0.4 X10*3/uL (0.0-0.4); Eosinophils Percent Auto 5.8 % (0-4); Hematocrit 43.5 % (37.0-47.0); Hemoglobin 14.9 g/dl (12.0-16.0); Imm Gran Abs Auto 0.01 X10*3/uL (0.00-0.03); Imm Gran Pct Auto 0.1 % (0.0-0.4); Lymphocytes Absolute Auto 2.6 X10*3/uL (1.2-4.9); Lymphocytes Percent Auto 36.3 % (20-40); Mean Corpuscular HGB Conc 34.3 g/dl (31.0-35.0); Mean Corpuscular Hemoglobin 30.8 pg (27.0-33.0); Mean Corpuscular Volume 89.9 fL (80.0-98.0); Mean Platelet Volume 9.3 fL (9.4-12.3); Monocytes Absolute Auto 0.6 X10*3/uL (0.1-1.2); Monocytes Percent Auto 7.9 % (2-11); Neutrophils Absolute Auto 3.6 x10*3/uL (2.0-8.3); Neutrophils Percent Auto 49.1 % (45-73); Platelet Count 334 X10*3/uL (160-400); Red Blood Count 4.84 X10*6/uL (4.20-5.50); White Blood Count 7.2 X10*3/uL (4.8-10.8)
[2024-11-26 11:53] LABS: Estimated Average Glucose 117 mg/dL; Hemoglobin A1C 151.7722 umol/L; Hemoglobin A1c % 5.7 % (<6.0)
[2024-11-26 15:11] LABS: Alanine Aminotransferase 37 U/L (0-31); Albumin Level 4.1 g/dL (3.5-5.0); Alkaline Phosphatase 57 U/L (39-117); Anion Gap 12 (12-20); Aspartate Amino Transferase 48 U/L (5-31); Bilirubin Total 0.7 mg/dL (0.0-1.0); Blood Urea Nitrogen 20 mg/dL (9-16); Calcium 9.5 mg/dL (8.4-10.2); Carbon Dioxide 27 mmol/L (22-29); Chloride 105 mmol/L (96-108); Cholesterol 194 mg/dL (<200); Estimated Glomerular Filt Rate > 60; Glucose Random 97 mg/dL (60-115); HDL Cholesterol 44 mg/dL (>40); LDL Cholesterol Calculated 131 mg/dL (<100); Potassium 4.6 mmol/L (3.3-5.1); Sodium 139 mmol/L (135-145); Total Protein 7.5 g/dL (6.5-8.0); Triglycerides 95 mg/dL (<150)
[2024-11-26 15:32] LABS: Free T4 (Free Thyroxine) 1.11 ng/dL (0.71-1.85); Thyroid Stimulating Hormone 1.21 uIU/mL (0.32-4.0); Vitamin D 25-OH Total 55.7 ng/mL (>30)
[2024-11-26 15:37] LABS: Vitamin B12 252 pg/mL (200-900)
== END 2024-11-26 09:55 | disposition home or self-care (01) ==
LOC: HO.WFDLDS 09:54
PROVIDERS: Visit Provider Internal Medicine
DX: E78.00 Pure hypercholesterolemia, unspecified (principal); E03.9 Hypothyroidism, unspecified
CPT/HCPCS: 36415; 80053; 80061; 82306; 82607; 82746; 83036; 84439; 84443; 85025

== ENCOUNTER 2025-01-25 09:55 | Outpatient (AMB) | payer MEDICARE, SELFPAY ==
--- OUTSIDE RECORDS SUMMARY | 2024-11-20 09:00 | XMS_ITS ---
Author Organization [facility] Address [address] [place] [address] Care Team Providers Care Director Of Corporate Communications Name Role Phone Felipe Perry Primary Care Provider Sirisha Pan Unavailable [phone] oMnroe Judge Unavailable [phone] Allergies Allergen (clinical drug ingredient) Drug/Non Drug [...] 11/20/2024 Encounters Encounter Location Date Provider Diagnosis [facility] [address] [place] [address] 11/20/2024 Monroe Judge Plan Of Treatment No Information Progress Notes * Jada AGUIAR MDOB:1955 (69 yo F)Acc No.[id number]:11/20/2024 Progress Notes Patient: Jada KNIGHT Provider: Alejandra Judge DPM :1955 A ge:69 Y S ex:Female Date:11/20/2024 Address:[place] [address], [facility] [id number] Pcp:Felipe Perry Subjective: * Chief Complaints: * [...] enies. C ardiovascular: Pacemaker d enies. M RISK CONTROL PRODUCT LIABILITY DIRECTOR d enies. W PW d enies. C [...] DPM Date: 0 11/20/2024 Generated for Ke shelton/Donald/Alexandritting on: 0 01/25/2025 10:41 AM EDT
--- OUTSIDE RECORDS SUMMARY | 2025-01-17 05:30 | XMS_ITS ---
Author Organization [facility] Address [address] [place] [address] Care Team Providers Care Liquor Stores [employer] Agencies Supervisor Name Role Phone Felipe Perry Primary Care Provider Sirisha Pan Unavailable [phone] Sveta Pereira [phone] REASON FOR VISIT Seen Sooner Encounters Encounter Location Date Provider Diagnosis [address] [address] 01/17/2025 Sveta Pereira Plan Of Treatment No Information Progress Notes * Jada AGUIAR MDOB:1955 (69 yo F)Acc No.[id number]:01/17/2025 Progress Notes Patient: Jada KNIGHT Provider: Mino Pereira DPM :1955 A ge:69 Y S ex:Female Date:01/17/2025 Address:[facility] [address] Pcp:Felipe Perry Subjective: * Chief Complaints: * 1 . Seen Sooner. * Medical History: Objective: * Vitals: Assessment: Plan: * Treatment: * Images: * The named appointment provid er may or may not be the originator of this progress note, and it is not deemed complete until electronically signed by the appointment provider. Sign off status: Pending * Provider: Mino Pereira DPM Date: 01/17/2025 Generated for Shini cat/Donald/eTransmitting on: 01/25/2025 10:42 AM EDT
[2025-01-25 10:16] VITALS: BP 140/90; PULSE 65; TEMP 36.2; O2SAT 96; BMI 32.2
--- NOTE | 2025-01-25 10:16 | A.OFFPC_ITS ---
Vital Signs 01/25/25 10:16 Height 5 ft 2 in Weight 176 lb BMI 32.2 BP 140/90 H Blood Pressure Location Lt brachial Position Sitting Pulse 65 Pulse Source Pulse Oximeter Temp 97.1 F Temp Source Temporal Artery Scan Pulse Oximetry (%) 96 Oxygen Delivery Method Room Air Intake Visit Reasons: back pain/follow up Allergies latex (LATEX) Allergy (Unknown, Verified 01/25/25 10:18) ANAPHYLAXIS fruits Allergy (Unknown, Uncoded 01/25/25 10:18) itchy throat Medication List - Last Reconciled 01/25/25 by Felipe Perry MD albuterol sulfate 0.63 mg (3 mL) inhalation QID PRN albuterol sulfate 90 mcg/actuation (Ventolin HFA) 2 puffs inhalation Q6H PRN aspirin (Adult Low Dose Aspirin) 81 mg PO DAILY bimatoprost 0.03% drps ophthalmic (eye) cyanocobalamin (vitamin B-12) 1,000 mcg PO DAILY dorzolamide 2% 1 drp ophthalmic (eye) TID epinephrine 0.3 mg (0.3 mL) IM Q10M PRN inhalational spacing device (BreatheRite Valved MDI Spacer) As directed latanoprost 0.005% 1 drp ophthalmic (eye) DAILY levothyroxine 75 mcg PO DAILY 90 days lisinopril 40 mg PO DAILY 90 days lorazepam 0.5 mg PO BID PRN 30 days nebulizers (AeroEclipse II Nebulizer) As directed Tobacco use date assessed: 01/25/25 Fall risk assessment: No Falls in past year Last assessed Fall Risk: 01/25/25 Dental Screening Dental Screen Date: 01/25/25 Did you have a dental visit in the last 12 months?: No Did you have a dental problem in the last 6 months where you did not have access to dental care?: No Was dental information given to patient?: Patient has dentist HPI back pain/follow up HPI Details cleaning property - 2 weeks , deny fall or trauma- stateshaving a problem with sitting and heat, exercises not helping PFSH Medical History Laboratory exam ordered as part of routine general medical examination Bronchitis SOB (shortness of breath) Hypertension COVID-19 Allergic rhinitis Asthma Anxiety Hypothyroid Hypercholesterolemia Obesity (BMI 30.0-34.9) Surgical History Cornea replaced by transplant History of trigger finger Status post corneal transplant History of section Family History Father Aneurysm CVA (cerebral vascular accident) Mother Hypertension Paternal Grandfather Brain aneurysm Social History Housing: House Alcohol intake: current Alcohol intake frequency: does not drink Comment: once a year 2 drinks on vacation Patient Tobacco Use Status: Never used Tobacco e-Cigarette/Vaping Use: Never Used Second Hand Smoke Exposure: No service: Yes Current occupational status: employed 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 1. Little interest or pleasure in doing things: not at all 2. Feeling down, depressed, or hopeless: not at all 3. Trouble falling or staying asleep, or sleeping too much: not at all 4. Feeling tired or having little energy: not at all 5. Poor appetite or overeating: not at all 6. Feeling bad about yourself - or that you are a failure or have let yourself or your family down: not at all 7. Trouble concentrating on things, such as reading the newspaper or watching television: not at all 8. Moving or speaking so slowly that other people could have noticed. Or the o pposite - being so fidgety or restless that you have been moving around a lot more than usual: not at all 9. Thoughts that you would be better off or of hurting yourself in some way: not at all Total score: 0 Depression Screening Interpretation: Negative Depression Screening Done: Yes Source: Developed by Drs. Humberto Fisher, Breann Wing, Linus Mar and colleagues, with an educational everardo from [employer]. Thrive Questionnaire Date Thrive assessed: 11/06/24 I am a: Patient What is your living situation today?: I choose not to answer this question Within the past 12 months, did the food you bought not last and you didn't have the money to get more?: I choose not to answer this question Within the past 12 months, did you worry whether your food would run out before you got money to buy more?: I choose not to answer this question Do you have trouble paying for medicines?: I choose not to answer this question Do you have trouble getting transportation to medical appointments?: I choose not to answer this question Do you have trouble paying your heating and electricity bill?: No Do you have trouble taking care of your child, family member or friend?: I choose not to answer this question Do you have trouble with day-to-day activities such as bathing, preparing meals, shopping, managing finances, etc.?: I choose not to answer this question Are you currently unemployed and looking for a job?: I choose not to answer this question Are you interested in more education?: I choose not to answer this question Please select the resources that you would like help with: None Currently or been in a relationship where the following occur: I choose not to answer THRIVE Score: 0 AUDIT C Alcohol Use Questionnaire (AUDIT-C) 1. How often do you have a drink containing alcohol?: Never 3. How often do you have six or more drinks on one occasion?: Never Total Score: 0 MURPHY-7 AMB Questionnaire MURPHY-7 Date MURPHY - 7 assessed: 11/15/24 Feeling nervous, anxious, or on edge: 0 = Not at all Not being able to stop or control worryin = Not at all Worrying too much about different things: 0 = Not at all Trouble relaxin = Not at all Being so restless that it is hard to sit still: 0 = Not at all Becoming easily annoyed or irritable: 0 = Not at all Feeling afraid as if something awful might happen: 0 = Not at all Total MURPHY-7 score (0-4 normal; 5-9 mild; 10-14 moderate; 15-21 severe): 0 Source: Developed by Drs. Humberto Fisher, Breann Wing, Linus Mar and colleagues, with an educational everardo from [employer]. Physical exam (Primary Care) Vital Signs: Last Vital Signs Temp 97.1 F 01/25/25 10:16 Pulse 65 01/25/25 10:16 BP 140/90 H 01/25/25 10:16 Pulse Ox 96 01/25/25 10:16 Oxygen Delivery Method Room Air 01/25/25 10:16 BMI result Body Mass Index 32.2 Tobacco/Smoking Status: Tobacco use Status Tobacco use date assessed 01/25/25 01/25/25 10:19 Patient Tobacco Use Status Never used Tobacco 01/25/25 10:19 e-Cigarette/Vaping Use Never Used 01/25/25 10:19 PHQ-9: PHQ-9 Score PHQ-9: Total score 0 01/25/25 10:27 Depression Screening Interpretation: Negative Thrive Assessment: Date of Thrive Assessment Date Thrive assessed 11/06/24 01/25/25 10:19 Currently or been in a relationship where the following occur: I choose not to answer Const General: alert; No acute distress Eyes Conjunctivae: conjunctivae normal Resp Auscultation: clear to auscultation bilaterally Cardio Rate: regular rate Rhythm: regular rhythm GI Inspection: Yes normal to inspection Extrem General: Yes normal to inspection and No edema Coding Level of Care Code Est Pt Level 4 (76131) Complex EM visit Add On G2211 Diagnoses Essential hypertension I10 Hypertension type: essential hypertension Hypercholesterolemia E78.00 Impaired fasting blood sugar R73.01 Acquired hypothyroidism E03.9 Hypothyroidism type: acquired Generalized anxiety disorder F41.1 Vitamin B12 deficiency E53.8 Mild intermittent asthma without complication J45.20 Asthma complication type: uncomplicated Asthma persistence: intermittent Asthma severity: mild Obesity (BMI 30-39.9) E66.9 Cataract, left eye H26.9 Acute midline low back pain without sciatica M54.50 Back pain laterality: midline Chronicity: acute Sciatica presence: without sciatica Assessment & Plan Assessment & Plan (1) Hypertension: Code(s): I10 - Essential (primary) hypertension Category: Medical Qualifiers: Hypertension type: essential hypertension Qualified Code(s): I10 - Essential (primary) hypertension Plan: Continue with blood pressure medication. Decrease salt intake and exercise patient is on lisinopril 40 mg once a day (2) Hypercholesterolemia: Code(s): E78.00 - Pure hypercholesterolemia, unspecified Category: Medical Plan: Avoid fried foods, chicken skin, eggs, butter margarine, pastries and meat. Be it pork or beef they have a lot of cholesterol LDL goal of less than 130 and triglyceride of less than 150 diet control (3) Impaired fasting blood sugar: Code(s): R73.01 - Impaired fasting glucose Category: Medical Plan: Decrease the amount of carbohydrate intake, pasta, bread, rice and potatoes are all sugar and that is aside from all the sweet stuff, remember that fruits are good but they are Sweet also. (4) Hypothyroid: Code(s): E03.9 - Hypothyroidism, unspecified Category: Medical Qualifiers: Hypothyroidism type: acquired Qualified Code(s): E03.9 - Hypothyroidism, unspecified Plan: Continue with thyroid medication (5) Generalized anxiety disorder: Code(s): F41.1 - Generalized anxiety disorder Category: Medical Plan: Continue with lorazepam as needed (6) Vitamin B12 deficiency: Code(s): E53.8 - Deficiency of other specified B group vitamins Category: Medical Plan: Vitamin B12 1000 mcg once a day (7) Asthma: Code(s): J45.909 - Unspecified asthma, uncomplicated Category: Medical Qualifiers: Asthma complication type: uncomplicated Asthma persistence: intermittent Asthma severity: mild Qualified Code(s): J45.20 - Mild intermittent asthma, uncomplicated Plan: Patient on albuterol as needed (8) Obesity (BMI 30-39.9): Code(s): E66.9 - Obesity, unspecified Category: Medical (9) Cataract, left eye: Code(s): H26.9 - Unspecified cataract Category: Medical (10) Low back pain: Code(s): M54.50 - Low back pain, unspecified Category: Medical Qualifiers: Back pain laterality: midline Chronicity: acute Sciatica presence: without sciatica Qualified Code(s): M54.50 - Low back pain, unspecified Plan History of Present Illness The patient is a 69-year-old female presenting for a follow-up visit and management of multiple chronic conditions. The patient has a history of essential hypertension, managed with lisinopril 40 mg daily. Her blood pressure management plan includes monitoring and medication adherence. Hypercholesterolemia is noted with an LDL cholesterol level of 131 mg/dL, slightly above the target of less than 130 mg/dL. Dietary control is part of the management plan. The patient has hypothyroidism, previously treated due to an overactive thyroid, and continues on thyroid medication. Asthma is managed with albuterol as needed, and the patient reports infrequent use. Generalized anxiety disorder is managed with lorazepam as needed. The patient is obese, with a current weight of 175 pounds and a goal weight of 150 pounds. She is considering medication for weight loss, such as Wegovy, and practices intermittent fasting. The patient is prediabetic with a hemoglobin A1c of 5.7%. Blood sugar levels are monitored, and lifestyle modifications are encouraged. Cataracts are present, with a planned surgery for the left eye. The patient has spondylosis, with recent exacerbation due to physical activity. Pain management includes the use of tramadol and non-pharmacological interventions such as heat and massage. Health Maintenance - Mammogram and bone density screening are up to date as of April 2024. - Lifestyle modifications for weight management include intermittent fasting and consideration of Wegovy for weight loss. Social History - Exercise: Patient engages in physical activities such as cleaning and property maintenance, which recently exacerbated back pain. - Weight Management: Practices intermittent fasting, eating dinner by 8 PM and not eating again until 10 or 11 AM. Review of Systems - Cardiovascular: Denies chest pain or palpitations. - Respiratory: Reports infrequent use of albuterol, denies frequent asthma exacerbations. - Musculoskeletal: Reports back pain exacerbated by physical activity, denies difficulty walking or driving. Physical Exam Results - Labs: Hemoglobin A1c 5.7%, LDL cholesterol 131 mg/dL, B12 level 250 (normal range 200-900). - Imaging: X-rays in June showed spondylosis. Plan Patient was informed and verbally consented to the use of an ambient scribe for clinic note documentation during this visit. 1. Essential Hypertension The patient is currently on lisinopril 40 mg daily for hypertension management. Blood pressure monitoring and medication adherence are emphasized as part of the management plan. 2. Hypercholesterolemia The patient's LDL cholesterol is slightly elevated at 131 mg/dL, with a target of less than 130 mg/dL. Dietary modifications are recommended to help manage cholesterol levels. 3. Hypothyroidism The patient continues on thyroid medication following treatment for an overactive thyroid. 4. Asthma Asthma is managed with albuterol as needed, and the patient reports infrequent use. 5. Generalized Anxiety Disorder The patient uses lorazepam as needed for anxiety management. 6. Obesity The patient is considering Wegovy for weight loss and practices intermittent fasting. 7. Prediabetes The patient's hemoglobin A1c is 5.7%, indicating prediabetes. Lifestyle modifications are encouraged to manage blood sugar levels. 8. Cataracts The patient is scheduled for cataract surgery on the left eye. 9. Spondylosis The patient experiences back pain due to spondylosis, exacerbated by physical activity. Pain management includes tramadol and non-pharmacological interventions such as heat and massage. Discussion Notes During the visit, we discussed the management of the patient's chronic conditions, including hypertension, hypercholesterolemia, hypothyroidism, asthma, generalized anxiety disorder, obesity, prediabetes, cataracts, and spondylosis. We reviewed the patient's current medications and emphasized the importance of adherence to prescribed treatments. The patient is considering Wegovy for weight loss, and we discussed the potential benefits and considerations of this medication. We also addressed the upcoming cataract surgery and the need for a referral for insurance purposes. Patient Instructions - Continue taking lisinopril 40 mg daily for blood pressure management. - Follow dietary recommendations to manage cholesterol levels. - Take thyroid medication as prescribed. - Use albuterol as needed for asthma symptoms. - Use lorazepam as needed for anxiety management. - Consider Wegovy for weight loss and continue intermittent fasting. - Monitor blood sugar levels and maintain lifestyle modifications for prediabetes. - Prepare for cataract surgery on the left eye and ensure insurance referral is completed. - Use tramadol and non-pharmacological methods for back pain management. Orders: Referrals Ophthalmology Referral H26.9 - Unspecified cataract Medications: New cyanocobalamin (vitamin B-12) 1,000 mcg PO DAILY 30 caps 3RF E53.8 - Deficiency of other specified B group vitamins semaglutide (weight loss) (Wegovy) administer weeks 1 through 4 of therapy 0.25 mg (0.5 mL) subcut QWEEK 2 mL 2RF E66.9 - Obesity, unspecified Changed From tramadol 50 mg PO Q8H PRN 12 tabs 0RF severe pain (scale score 7-10) M54.50 - Low back pain, unspecified To tramadol 50 mg PO BID PRN 20 tabs 0RF severe pain (scale score 7-10) M54.50 - Low back pain, unspecified
--- OUTSIDE RECORDS SUMMARY | 2025-01-25 10:42 | XMS_ITS | Encounter Summary ---
Author Organization [employer] [facility] Address [address] [place] [address] [address] [place] [address] Care Team Providers Care Wire Weaver Cloth Name Role Phone Unavailable Primary Care Provider Unavailabl e Encounter Details Date Type Department Care Team (Latest Contact Info) Description 07/18/2019 Abstract HHC CONVERSIONS Dental, Provider, DDS Social [...]
--- OUTSIDE RECORDS SUMMARY | 2025-01-25 10:42 | XMS_ITS | Clinical Summary ---
Author Organization [employer] Address [address] [place] [address] [address] [place] [address] Care Team Providers Care Edge Inker Uppers Name Role Phone Unavailable Primary Care Provider [...] 2024 04/02/2023, 05/14/2021, 09/17/2020, Additional history exists Dental Prophylaxis 03/07/2024 09/05/2023, 1 06/01/2021, 07/18/2019 Dental X-Ray: Bitewings 09/05/2024 09/05/19 24, 04/01/2022, 07/18/2019, Additional history exists Tobacco Screening 11/06/2024 11/07/2023 Influenza Vaccine (#1) 2025 DTaP/Tdap/Td Vaccines (2 - Td or Tdap) [...] patient's age to complete this topic Meningococcal B Vaccine Aged Out No l onger eligible based on patient's age to complete [...] ESTABLISHED PATIENT Routine 04/01/2022 12:00 AM EDT INTRAORAL - COMPLETE SERIES OF RADIOGRAPHIC IMAGES Routine 07/18/2019 12:00 AM EST from Last 3 Months or Most Recently Relevant to Health Maintenance Insurance DENTAL [facility] - HSN FULL (MEDICAID) [id number] [id number]
--- OUTSIDE RECORDS SUMMARY | 2025-01-25 10:42 | XMS_ITS | Encounter Summary ---
Author Organization [employer] [facility] Address [address] [place] [address] [address] [id number] Care Team Providers Care Sheriff Detective Name Role Phone Unavailable Primary Care Provider [...]
--- OUTSIDE RECORDS SUMMARY | 2025-01-25 10:42 | XMS_ITS | Patient Health Record ---
Author Organization [facility] Address [address] [place] [address] Care Team Providers Care Body Specialist Name Role Phone Felipe Perry Primary Care Provider Sirisha Pan Unavailable [phone] Yaakov Pereiramie Unavailable [phone] Monroe Judge Unavailable [phone] Allergies Allergen (clinical drug ingredient) Drug/Non Drug Allergy documented on EMR Reaction Allergy Type Onset Date Status Fresh fruit Fresh Fruit (uncoded) itchy lips and tongue Allergy Active Latex Latex (uncoded) itchy hands and lips Allergy Active Reason For Referral Diagnosis 1 Pain in unspecified foot (M79.673) Referring Provider First Name Felipe Referring Provider Last Name Referred [facility] Referred Provider Monroe Judge Referred Address [address], [place],[address],[place] Referred Provider Specialty Podiatry Referral Priority Routine Diagnosis 1 Pain in unspecified foot (M79.673) Referring Provider First Name Felipe Referring Provider Last Name [facility] Referred Provider Sirisha Witt Referred Address [address], [place],[address],[place] Referred Provider Specialty Podiatry Referral Priority Routine Medications Medication SIG (Take, Route, Frequency, Duration) Notes Start Date End Date Status Lisinopril 20 MG 1 tablet Orally Once a day Active Baby Aspirin Active Levothyroxine Sodium 75 MCG 1 tablet in the morning on an empty stomach Orally Once a day Active Loratadine Active Immunizations Vaccine Route Administration Date Status Comme nts Influenza Unknown 02/28/2024 Administered Social History Tobacco Use: Social History Observation [...] ast year? 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 Vital Signs Blood pressure diastolic 70 mm Hg 01/10/2025 Height 5ft 2inch in 01/10/2025 Blood pressure systolic 126 mm Hg 01/10/2025 Weight 173 lbs 01/10/2025 BMI 31.64 kg/m2 01/10/2025 Procedures Procedure Date Ordered Date Performed Result Body Sit e 67411, J0702- Neuroma/Injection 01/10/2025 N/A Encounters Encounter Location Date Provider Diagnosis [facility] [address] 11/29/2024 Sirisha Witt Pain in left foot M79.672 ; Calzada's neuroma of left foot G57.62 and Closed nondisplaced fracture of middle phalanx of lesser toe of left foot, initial encounter S92.525A [address] [address] 01/10/2025 Sirisha Witt Calzada's neuroma of left foot G57.[address] [facility] [address] 10/29/2024 [facility] [address] 11/20/2024 Monroe Nu [address] [address] 11/22/2024 Monroe Nu [address] [address] 12/04/2024 [facility] [place] [address] [place] [address] 12/18/2024 Sirisha Witt Assessments Encounter Date Diagnosis (ICD Code) Assessment Notes Treatment Notes Treatment Clinical Notes Section Notes 11/29/2024 Pain in left foot (ICD-10 - M79.672) 11/29/2024 Calzada's neuroma of left foot (ICD-10 - G57.62) 01/10/2025 Calzada's neuroma of left foot (ICD-10 - G57.62) Patient Educated with: RICE THERAPY.pdf (RICE THERAPY.pdf) Patient Educated with: INJECTIONTHERA PY.pdf (INJECTIONTHER APY.pdf) Patient Educated with: INJECTIONTHERA PY.pdf (INJECTIONTHER APY.pdf) 11/29/2024 Closed nondisplaced fracture of middle phalanx of lesser toe of left foot, initial encounter (ICD-10 - S92.525A) Plan Of Treatment Pending Test Test Name Order Date X ray : Foot, left 3V 11/29/2024 15769, J0702- Neuroma/Injection 01/11/20 25 Insurance Providers Payer Name Payer Address Payer Phone Subscriber Number Group Number Insured Name Patient Relationship to Insured Coverage Start Date Coverage End Date [facility] [address] [place] [phone] [id number] Jada Dubois Self - patient is the insured Medical (General) History Medical History History ICD Code asthma Back,Hip,and Knee pain Cataracts covid-19 Glaucoma thyroid Measles Mumps Chicken pox Surgical History Surgery Date(Month/Year) corneal transplant 2x
== END 2025-01-25 10:50 | disposition home or self-care (01) ==
LOC: HO.HMCH 09:56
PROVIDERS: PCP Internal Medicine; Visit Provider Internal Medicine
DX: I10 Essential (primary) hypertension (principal); Z68.32 Body mass index [BMI] 32.0-32.9, adult; E66.9 Obesity, unspecified; E78.00 Pure hypercholesterolemia, unspecified; R73.01 Impaired fasting glucose; E03.9 Hypothyroidism, unspecified; F41.1 Generalized anxiety disorder; E53.8 Deficiency of other specified B group vitamins; J45.20 Mild intermittent asthma, uncomplicated; H26.9 Unspecified cataract; M54.50 Low back pain, unspecified

== ENCOUNTER → 2025-01-25 09:55 | Outpatient (BNVA) | payer MEDICARE, OTHER, SELFPAY | PROVIDERS: PCP Internal Medicine; Visit Provider Internal Medicine | DX: I10 Essential (primary) hypertension (principal); E78.00 Pure hypercholesterolemia, unspecified; E03.9 Hypothyroidism, unspecified; F41.1 Generalized anxiety disorder; E53.8 Deficiency of other specified B group vitamins; J45.20 Mild intermittent asthma, uncomplicated; E66.9 Obesity, unspecified; H26.9 Unspecified cataract; M54.50 Low back pain, unspecified; R73.03 Prediabetes; M47.9 Spondylosis, unspecified | CPT/HCPCS: 96127; 99212 ==

== ENCOUNTER 2025-05-24 07:52 | Outpatient (REF) | payer MEDICARE, OTHER, SELFPAY ==
--- OUTSIDE RECORDS SUMMARY | 2024-11-20 08:00 | XMS_ITS ---
Author Organization [facility] Address [address] [place] [address] Care Team Providers Care Bioinformatics Specialist Name Role Phone OrlandoLizettthomas Primary Care Provider Sirisha Pan Unavailable [phone] Monroe Judge Unavailable [phone] Allergies Allergen (clinical drug ingredient) Drug/Non Drug Allergy documented on EMR Reaction Allergy Type Onset Date Status Fresh fruit Fresh Fruit (uncoded) itchy lips and tongue Allergy Active Latex Latex (uncoded) itchy hands and lips Allergy Active Medications Medication SIG (Take, Route, Frequency, Duration) Notes Start Date End Date Status Loratadine Active Baby Aspirin Active Lisinopril 20 MG 1 tablet Orally Once a day Active Levothyroxine Sodium 75 MCG 1 tablet in the morning on an empty stomach Orally Once a day Active Social History Tobacco Use: Social History Observation Description Date Details (start date - stop date) Never Smoker NA - NA Tobacco use other than smoking: Question Answer Notes Are you an other tobacco user? No Tobacco Control (Standard) Question Answer Notes Tobacco use: Nonsmoker Additional Findings: Tobacco non-user Current no nsmoker AUDIT-C (Standard) Question Answer Notes Did you have a drink containing alcohol in the p ast year? No Points 0 Interpretation Negative Vital Signs Height 5 ft 2 in in 11/20/2024 Weight 176 lbs 11/20/2024 BMI 32.19 kg/m2 11/20/2024 Encounters Encounter Location Date Provider Diagnosis [facility] [address] [place] [address] 11/20/2024 Monroe Judge Plan Of Treatment Next Appt Details Provider Name:Sirisha orantes, 06/27/2025 02:30:00 PM, [address] [facility], [place], [address], Progress Notes * Jada AGUIAR MDOB:1955 (69 yo F)Acc No.[id number]:11/20/2024 Progress Notes Patient: Jada KNIGHT Provider: Alejandra Judge DPM :1955 A ge:69 Y S ex:Female Date:11/20/2024 Address:[place] [address], [facility], [id number] Pcp:Felipe Perry Subjective: * Chief Complaints: * * ROS: G eneral/Constitutional: Nausea d enies. V omiting d enies. H nick Thirst d enies. L oss appetite d enies. C hills d enies. F atigue d enies.?Fever d enies. N ight Sweats d enies. U nexplained weight loss d enies. U nexplained weight gain d enies. H EENTM: Dentures d enies. D izziness d enies. G lasses/contacts a dmits. R etinopathy d enies. B lurred/double vision d enies. T MJ?denies. D ischarge/drainage d enies. I mplants d enies. S ore throat d enies. D ental implants d enies. H david of hearing d enies. D ifficulty chewing/swallowing/speaking d enies. N ose bleeds d enies. S ore mouth d enies. ? R espiratory: On Oxygen d enies. P neumonia/pleurisy d enies.?Bronchitis d enies. E mphysema d enies. C oughing d enies. C ough blood?denies. S hortness of breath d enies. W heezing d enies. C ardiovascular: Pacemaker d enies. M PARKING LOT ATTENDANT AND CASHIER d enies. W PW d enies. C HF d enies. H eart attack d enies. S eptal defect d enies. R apid beat d enies. C hest pain d enies. A trial Fib. d enies. M urmur/Palpitations d enies. G astrointestinal: Hemorrhoids d enies. S tomach/Abdominal pain d enies. D ark blood stool d enies. I rritable bowel d enies. C onstipation d enies. D iarrhea d enies. H ematology: Swelling d enies. C lots d enies. V aricose Veins d enies. B ruising d enies. B leeding problem d enies. G enitourinary: Blood urine d enies. F requent/Painfu/urination/bladder control d enies. K idney stones d enies. I nfection (UTI) d enies. N ephropathy d enies. s ex trans dis (STD) d enies. P rostate d enies. M usculoskeletal: Hammertoes d enies. B unions d enies. B ack Pain d enies. M uscle Cramps/ Resting d enies. M uscle cramps / walking d enies.?Generalized aches and pains d enies. W eakness d enies. I nteg.: Howell d enies. S cars d enies. C orns/calluses?denies. I ngrown nails d enies. P ainful nails d enies. O pen Sores d enies. R ashes d enies. N eurologic: Difficulty sleeping d enies. B rain disorder d enies. N umbness d enies. B alance trouble d enies. C onfusion d enies. F ainting/blackouts d enies. T ingling d enies. T remors d enies. * Medical History: A sthma, Back,Hip,and Knee pain, Cataracts, Covid-19, Glaucoma, Thyroid, Measles, Mumps, Chicken pox. * Surgical History: c orneal transplant 2x . * Family History: M other: alive, poor circulation, diagnosed with Unspecified essential hypertension, Family history of arthritis. F ather: . S iblings: diagnosed with Other malignant neoplasm of unspecified site, Diabetic - NIDDM, Unspecified essential hypertension. * Social History: T obacco Use: T obacco use other than smoking A re you an other tobacco user? N o Tobacco Control (Standard) T obacco use: N onsmoker A dditional Findings: Tobacco non-user C urrent nonsmoker D rugs/Alcohol: D rugs H ave you used drugs other than those for medical reasons in the past 12 months? N o M iscellaneous: C affeine: yes, frequency: 1 cup per day. Marital status: . 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 D rug/Alcohol: A LUIS-C (Standard) D id you have a drink containing alcohol in the past year? N o P oints 0 I nterpretation N egative * Medications: T aking Baby Aspirin , Taking Lisinopril 20 MG Tablet 1 tablet Orally Once a day , Taking Loratadine , Taking Levothyroxine Sodium 75 MCG Tablet 1 tablet in the morning on an empty stomach Orally Once a day * Allergies: L atex: itchy hands and lips, Fresh Fruit: itchy lips and tongue. Objective: * Vitals: H t:5 ft 2 in, Wt:176, BMI:32.19, Ht-cm: 157.48 cm, Wt-k.83 kg. Assessment: Plan: * Treatment: * Images: * The named appointment provid er may or may not be the originator of this progress note, and it is not deemed complete until electronically signed by the appointment provider. Sign off status: Pending * Provider: Alejandra Judge DPM Date: 0 11/20/2024 Generated for Ke shelton/Donald/Usha on: 07/25/2024 07:38 AM EST
--- OUTSIDE RECORDS SUMMARY | 2025-01-17 04:30 | XMS_ITS ---
Author Organization [facility] Address [address] [place] [address] Care Team Providers Care Worm Picker Name Role Phone Felipe Perry Primary Care Provider Sirihsa Pan Unavailable [phone] Sveta Pereira [phone] REASON FOR VISIT Seen Sooner Encounters Encounter Location Date Provider Diagnosis [address] [address] 01/17/2025 Sveta Pereira Plan Of Treatment Next Appt Details Provider Name:Sirisha orantes, 06/27/2025 02:30:00 PM, [address] [place] [address], [phone], Progress Notes * Jada AGUIAR MDOB:1955 (69 yo F)Acc No.[id number]:01/17/2025 Progress Notes Patient: Jolene Jada MONTEJO Provider: Mino Pereira DPM :1955 A ge:69 Y S ex:Female Date:01/17/2025 Address: [address], [facility] [id number] Pcp:Felipe Perry Subjective: * Chief Complaints: * 1 . Seen Sooner. * Medical History: Objective: * Vitals: Assessment: Plan: * Treatment: * Images: * The named appointment provid er may or may not be the originator of this progress note, and it is not deemed complete until electronically signed by the appointment provider. Sign off status: Pending * Provider: Mino Pereira, SIMRAN Date: 0 01/17/2025 Generated for Ke shelton/Donald/Usha on: 07/25/2024 07:38 AM EST
--- NOTE | ~2025-05-24 | MM_ITS ---
EXAMINATION: MM SCREENING DIGITAL BREAST TOMOSYNTHESIS, BILATERAL CLINICAL INFORMATION: Screening. Asymptomatic. COMPARISON: Comparison made to multiple prior, most recent right diagnostic mammogram on July 03, 2024, and most remote March 09, 2016. TECHNIQUE: Digital breast tomosynthesis is performed in mediolateral oblique and craniocaudal views along with computer-aided detection (CAD). Synthesized 2D images are generated from the tomosynthesis. FINDINGS: BREAST COMPOSITION: There are scattered areas of fibroglandular density. BILATERAL BREASTS: No significant masses, suspicious calcifications or other abnormalities are seen in either breast. MM/MM tomosynthesis screening BI IMPRESSION: BILATERAL BREASTS: Negative, no mammographic evidence of malignancy. Normal interval follow-up is recommended in 12 months. ASSESSMENT: BI-RADS: Category 1: Negative RECOMMENDATION: Routine annual mammography screening. FOLLOW-UP: 1 year F/U This examination should not preclude the clinical evaluation of a suspicious palpable abnormality. This patient's information was entered into a reminder system with a target due date for their next mammogram. Electronically signed by: Annie Rea MD 05/25/2025 05:33 PM MARY
--- OUTSIDE RECORDS SUMMARY | 2025-05-24 07:38 | XMS_ITS | Encounter Summary ---
Author Organization [employer] [facility] Address [address] [place] [address] [address] [place] [address] Care Team Providers Care Retail Marketing Executive Name Role Phone Unavailable Primary Care Provider [...]
--- OUTSIDE RECORDS SUMMARY | 2025-05-24 07:38 | XMS_ITS | Encounter Summary ---
Author Organization [email or web address] [facility] Address [address] [place] [address] [address] [id number] Care Team Providers Care Flatbed Driver Name Role Phone Unavailable Primary Care Provider [...]
--- OUTSIDE RECORDS SUMMARY | 2025-05-24 07:38 | XMS_ITS | Patient Health Record ---
Author Organization [facility] [place] Address [address] [place] [address] Care Team Providers Care Cane Stripper Name Role Phone Felipe Perry Primary Care Provider Sirisha Pan Unavailable [phone] Yaakov Pereiramie Unavailable [phone] Monroe Judge Unavailable [phone] Allergies Allergen (clinical drug ingredient) Drug/Non Drug Allergy documented on EMR Reaction Allergy Type Onset Date Status Fresh fruit Fresh Fruit (uncoded) itchy lips and tongue Allergy Active Latex Latex (uncoded) itchy hands and lips Allergy Active Reason For Referral Diagnosis 1 Pain in unspecified foot (M79.673) Referring Provider First Name Felipe Referring Provider Last Name Referred [facility] Referred Provider Monroe Judge Referred Address [address] [place], [place],[address],[place] Referred Provider Specialty Podiatry Referral Priority Routine Diagnosis 1 Pain in unspecified foot (M79.673) Referring Provider First Name Felipe Referring Provider Last Name [facility] Referred Provider Sirisha Witt Referred Address [address] [place], [place],[address],[place] Referred Provider Specialty Podiatry Referral Priority Routine [...] Notes Problem Calzada's neuroma of left foot (908037060566 105) 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 Vital Signs Blood pressure diastolic 70 mm Hg 01/10/2025 Height 5ft 2inch in 01/10/2025 Blood pressure systolic 126 mm Hg 01/10/2025 Weight 173 lbs 01/10/2025 BMI 31.64 kg/m2 01/10/2025 Procedures Procedure Date Ordered Date Performed Result Body Sit e 52696, J0702- Neuroma/Injection 01/10/2025 N/A Encounters Encounter Location Date Provider Diagnosis [facility] [address] 11/29/2024 Sirisha Witt Pain in left foot M79.672 ; Calzada's neuroma of left foot G57.62 and Closed nondisplaced fracture of middle phalanx of lesser toe of left foot, initial encounter S92.525A [address] [address] 01/10/2025 Sirisha Witt Calzada's neuroma of left foot G57.[address] [facility] [address] 10/29/2024 [facility] [address] 11/20/2024 Monroe Nu [address] [address] 11/22/2024 Monroe Nu [address] [address] 12/04/2024 [facility] [place] [address] [place] [address] 12/18/2024 Sirishaeric Witt Assessments Encounter Date Diagnosis (ICD Code) [...] X ray : Foot, left 3V 11/29/2024 76059, J0702- Neuroma/Injection 01/11/20 25 Next Appt Details Provider Name:Sirisha orantes, 06/27/2025 02:30:00 PM, [address] [place] [address], [phone], Insurance Providers Payer Name Payer Address Payer Phone Subscriber Number Group Number Insured Name Patient Relationship to Insured Coverage Start Date Coverage End Date [facility] [address] [place] [phone] [id number] Jada Dubois Self - patient is the insured Medical (General) History Medical History History ICD Code asthma Back,Hip,and Knee pain Cataracts covid-19 Glaucoma thyroid Measles Mumps Chicken pox Surgical History Surgery Date(Month/Year) corneal transplant 2x
--- OUTSIDE RECORDS SUMMARY | 2025-05-24 07:39 | XMS_ITS | Clinical Summary ---
Author Organization [employer] Address [address] [place] [address] [address] [place] [address] Care Team Providers Care Boiler Blower Name Role Phone Unavailable Primary Care Provider [...] Dental Oral Exam 09/30/2022 04/01/2022, , 04/19/2014 Dental Prophylaxis 03/07/2024 09/05/2023, 1 06/01/2021, 07/18/2019 Dental X-Ray: Bitewings 09/05/2024 09/05/19 24, 04/01/2022, 07/18/2019, Additional history exists Tobacco Screening 11/06/2024 11/07/2023 COVID-19 Vaccine ( season) 2025 04/02/2023, 05/14/2021, 09/17/2020, Additional history exists Influenza Vaccine (#1) 2025 DTaP/Tdap/Td Vaccines (2 [...] Recently Relevant to Health Maintenance Insurance [facility] FULL (MEDICAID) [id number] [id number]
== END 2025-05-24 07:53 | disposition home or self-care (01) ==
LOC: HO.MAMMO 07:52
PROVIDERS: PCP Internal Medicine; Visit Provider Internal Medicine
DX: Z12.31 Encounter for screening mammogram for malignant neoplasm of breast (principal)
CPT/HCPCS: 77063; 77067

== ENCOUNTER → 2025-05-24 08:00 | Outpatient (BNV) | payer MEDICARE, SELFPAY | PROVIDERS: PCP Internal Medicine; Visit Provider Radiology Body Imaging | DX: Z12.31 Encounter for screening mammogram for malignant neoplasm of breast (principal) | CPT/HCPCS: 77063; 77067 ==